=== PATIENT | female | born 1940 | race Caucasian/White ===

== ENCOUNTER 2017-10-13 22:54 | Emergency (ER) | payer OTHER ==
[~2017-10-13] VITALS: Ht 152.4 cm; Wt 72.6 kg
[~2017-10-13 22:54] MED LIST: APOA1CAP PO; ASPI81TA28 PO; CHOL20009 PO; FAMO10TA16 PO; LOSA1TAB PO; LPT20 PO; MAGN70CA PO; METO25TA3 PO; MISCCAP80; MULT-506 PO; NTRGSL/4 SL; PSYL55.43 PO; THY/30 PO; [UNRECOGNIZED DRUG - CODE] PO
[2017-10-13 22:59] VITALS: TEMP 36.7; Ht 152.4 cm; Wt 72.6 kg
[2017-10-13] MEDS ORDERED: GRAP100C PO (23:45)
[2017-10-13] MEDS ORDERED: MAGN70CA PO (23:45)
[2017-10-13] MEDS ORDERED: TRAMADOL HCL 50 MG TAB PO STA (23:47)
--- NOTE | 2017-10-14 01:24 | EMERGENCY ROOM VISIT NOTE ---
History Report prepared by Tien: Sowmya He Under the Supervision of: Dr. Rima Cotton M.D. First contact with patient: 23:01 Chief Complaint: FALL Stated Complaint: FALL, BACK PAIN History of Present Illness The patient is a 77 year old female who presents to the Emergency Room with complaints of a persistent knee weakness that began several months ago. The patient states that she normally has trouble ambulating, due to weakness in her knees. The patient's daughter states that the patient normally cannot walk up and down the stairs without help, noting she sometimes crawls on the stairs. The patient notes that she fell while walking tonight, but she did not hurt herself with the fall. She states that she has seen several doctors who suggested her knee weakness might be caused by her back. The patient notes that fixing her posture helps relieve her symptoms. The patient has an appointment on Friday to discuss possible treatments to treat her knee weakness. The patient has an appointment to see her binding cutter tomorrow, noting she has a heart murmur. She states she had a heart attack 4 years ago. Source of History: patient Onset: several months ago Position: knee (bilateral) Quality: other (knee weakness) Timing: other (persistent ) Modifying Factors (Worsening): movement (walking) Review of Systems See HPI for pertinent positives & negatives. A total of 10 systems reviewed and were otherwise negative. Past Medical & Surgical Medical Problems: (1) Anxiety disorder (2) CAD (coronary artery disease) (3) Chronic systolic heart failure (4) CKD (chronic kidney disease), stage III (5) GERD (gastroesophageal reflux disease) (6) History of - myocardial infarction (7) History of diverticulosis (8) History of GI bleed (9) Hypertension (10) Hypothyroidism (11) Ischemic cardiomyopathy Surgical Problems: (1) Deliveries by (2) H/O: hysterectomy (3) History of - hysterectomy (4) S/P angioplasty with stent (5) S/P BSO (bilateral salpingo-oophorectomy) (6) S/P tonsillectomy and adenoidectomy Family History Cancer MOTHER (Kidney CA) SISTER (Colon CA) AUNT (Colon CA) Diabetes mellitus MOTHER Heart disease MOTHER SISTER Hypertension Social History Smoking Status: Never Smoker Alcohol Use: none Drug Use: none Marital Status: Housing Status: lives alone Occupation Status: retired Current/Historical Medications Scheduled Apoaequorin (Prevagen), 10 MG PO DAILY Cholecalciferol (Vitamin D), 2,000 UNITS PO DAILY Grape Seed (Grape Seed Extract), 100 MG PO DAILY Losartan Potassium (Cozaar), 12.5 MG PO DAILY Magnesium (Magnesium Sulfate), 70-210 MG PO DAILY Metoprolol Succ (Toprol Xl) (Toprol-Xl), 12.5 MG PO HS Multivitamin (Multivitamin), 4 TABS PO DAILY [place] (Marya Europaea) ([place] Extract), 500 MG PO DAILY Probiotic Product (Probiotic), 1 CAP DAILY Thyroid ([place] Thyroid), 30 MG PO 4XWK Thyroid ([place] Thyroid), 60 MG PO 3XWK Scheduled PRN Nitroglycerin (Nitrostat), 0.4 MG SL UD PRN for Chest Pain Allergies Coded Allergies: Clopidogrel (Verified Allergy, Mild, RASH, 10/13/17) n/a Penicillins (Verified Allergy, Mild, 10/13/17) Tetracycline (Verified Allergy, Mild, 10/13/17) Lisinopril (Verified Allergy, Unknown, UNKOWN, 10/13/17) Ranitidine (Verified Adverse Reaction, Intermediate, palpatations, ) Physical Exam Vital Signs Date Time Temp Pulse Resp B/P (MAP) Pulse Ox O2 Delivery O2 Flow Rate FiO2 10/14/17 00:48 68 18 143/78 96 Room Air 10/13/17 23:07 76 10/13/17 22:59 36.7 77 20 149/72 97 Room Air Physical Exam Vital signs reviewed. General: Well-appearing female, in no significant distress. HEENT: No scleral icterus, PERRLA, neck supple. Atraumatic. Cardiovascular: Regular rate and rhythm, systolic ejection murmur, no extra sounds. Pulmonary: Clear to auscultation bilaterally, normal work of breathing. Abdomen: Soft, nontender, nondistended, positive bowel sounds. Musculoskeletal: Arthritic change to knees bilaterally. Limited range of motion of right knee to flexion. Mild tenderness along joint line, no significant appreciable effusion, no erythema, trace peripheral edema bilateral lower extremities. Atraumatic. Neurologic: Patient awake alert and oriented x 3. Skin: Warm, dry, no rash Medical Decision & Procedures ER Provider Diagnostic Interpretation: Radiology results as stated below per my review and radiologist interpretation: Knee x-ray: Narrow medial joint compartment with degenerate changes, no acute fracture or dislocation. Performed on: 10/13/2017 23:18 ED Course 2305: Past medical records reviewed. The patient was evaluated in room A10. A complete history and physical examination was performed. 2347: Ordered Tramadol HCL 50mg PO. 2355: I reevaluated the patient, who was resting comfortably. I discussed the test findings and treatment plan with her and her family. They all verbalized complete understanding and agreement. The nursing staff will contact [facility] to see if the patient can be admitted tonight. 2420: The patient was referred and will be admitted into [facility]. Medical Decision Differential diagnosis: Etiologies such as fracture, dislocation, neurovascular compromise, compartment syndrome, soft tissue injury, as well as others were entertained. This patient was evaluated and appeared to be in no significant distress. Patient denies any injury during the fall. She is not on blood thinners. Left knee x-ray was performed and reveals degenerative changes without evidence of fracture or dislocation. Patient states she is not able to ambulate up her stairs to the bathroom. She has difficulty getting into her kitchen to feed herself lately. Both of her daughter states that they have two-story house is with bathrooms on the second floor as well. Patient's states she will not be able to navigate being at home with a knee immobilizer and a walker. The patient has been referred to [facility] for further evaluation. Pt and family agree with the plan for transfer. Medication Reconcilliation Current Medication List: was personally reviewed by me Blood Pressure Screening Patient's blood pressure: Elevated blood pressure Blood pressure disposition: Elevated BP felt to be situational Impression Primary Impression: Left knee pain Additional Impressions: Fall Left knee DJD Scribe Attestation The scribe's documentation has been prepared under my direction and personally reviewed by me in its entirety. I confirm that the note above accurately reflects all work, treatment, procedures, and medical decision making performed by me. Departure Information Dispostion Rehab Inpatient Facility Referrals Rey Nation M.D. (PCP) Forms HOME CARE DOCUMENTATION FORM, IMPORTANT VISIT INFORMATION Patient Instructions My [facility] Problem Qualifiers
[2017-10-14 02:41] VITALS: BP 134/68; PULSE 78; O2SAT 96
--- NOTE | 2017-10-14 07:13 | DIAGNOSTIC IMAGING REPORT ---
L KNEE 1 OR 2 VIEWS ROUTINE CLINICAL HISTORY: 77 years-old Female presenting with L knee pain, fall. TECHNIQUE: Frontal and crosstable lateral views of the left knee were obtained. COMPARISON: None. FINDINGS: No acute fracture or malalignment. An ossicle or calcification noted projecting over the lateral joint space on frontal view, possibly the fabella. Tricompartmental degenerative changes most severe in the medial compartment, where there is significant joint space loss and subchondral sclerosis. A trace knee joint effusion may be present. Atherosclerosis. IMPRESSION: Tricompartmental degenerative changes most severe in the medial compartment with joint space loss and subchondral sclerosis. No acute osseous injury. Electronically signed by: Ian Benavides M.D. 10/14/2017 7:12 AM Dictated Date/Time: 10/14/2017 7:10 AM
== END 2017-10-14 02:46 ==
LOC: EDBD 22:54 → C.EDA 22:56
DX: M25.562 Pain in left knee (principal); W19.XXXA Unspecified fall, initial encounter; M17.12 Unilateral primary osteoarthritis, left knee; I12.9 Hypertensive chronic kidney disease with stage 1 through stage 4 chronic kidney disease, or unspecified chronic kidney disease; N18.3 Chronic kidney disease, stage 3 (moderate); I25.10 Atherosclerotic heart disease of native coronary artery without angina pectoris; E03.9 Hypothyroidism, unspecified; I50.22 Chronic systolic (congestive) heart failure; I25.2 Old myocardial infarction; K21.9 Gastro-esophageal reflux disease without esophagitis; K57.90 Diverticulosis of intestine, part unspecified, without perforation or abscess without bleeding; F41.9 Anxiety disorder, unspecified; Z87.19 Personal history of other diseases of the digestive system; Z90.710 Acquired absence of both cervix and uterus; Z98.61 Coronary angioplasty status; Z90.722 Acquired absence of ovaries, bilateral; Z98.890 Other specified postprocedural states; Z79.899 Other long term (current) drug therapy; Z88.0 Allergy status to penicillin; Z88.8 Allergy status to other drugs, medicaments and biological substances; Z80.9 Family history of malignant neoplasm, unspecified; Z83.3 Family history of diabetes mellitus; Z82.49 Family history of ischemic heart disease and other diseases of the circulatory system

== ENCOUNTER 2017-11-12 08:15 | Inpatient (IN) | payer OTHER ==
[2017-10-22 13:41] VITALS: BMI 33.0
--- NOTE | 2017-10-22 14:21 | PAT Medication Instructions ---
Service Date Oct 22, 2017. Current Home Medication List Apoaequorin (Prevagen), 5 MG PO PRN PRN for MEMORY Cholecalciferol (Vitamin D), 2,000 UNITS PO QAM Losartan Potassium (Cozaar), 12.5 MG PO QAM Metoprolol Succ (Toprol Xl) (Toprol-Xl), 12.5 MG PO HS Multivitamin (Multivitamin), 1 TAB PO QAM Nitroglycerin (Nitrostat), 0.4 MG SL UD PRN for Chest Pain Probiotic Product (Probiotic), 1 CAP QPM Thyroid ([place] Thyroid), 30 MG PO 4XWK Thyroid ([place] Thyroid), 60 MG PO 3XWK [Magnesium], 1 TAB PO QAM Medication Instructions For Your Scheduled Surgery - Continue as directed: Nitroglycerin (Nitrostat), 0.4 MG SL UD PRN for Chest Pain - Hold the following medications 2 weeks prior to surgery: Apoaequorin (Prevagen), 5 MG PO PRN PRN for MEMORY - Hold the following medications the morning of surgery: [Magnesium], 1 TAB PO QAM Cholecalciferol (Vitamin D), 2,000 UNITS PO QAM Losartan Potassium (Cozaar), 12.5 MG PO QAM Multivitamin (Multivitamin), 1 TAB PO QAM - Take the following medications the morning of surgery with a sip of water OTHERWISE NOTHING TO EAT OR DRINK AFTER MIDNIGHT: Thyroid ([place] Thyroid) - Take the following medications as scheduled the night before surgery: Metoprolol Succ (Toprol Xl) (Toprol-Xl), 12.5 MG PO HS Probiotic Product (Probiotic), 1 CAP QPM If you have any questions please call us at [phone] or [phone] or [phone]
--- NOTE | 2017-10-22 14:52 | DIAGNOSTIC IMAGING REPORT ---
CHEST 2 VIEWS ROUTINE CLINICAL HISTORY: PAT preoperative evaluation COMPARISON STUDY: 02/11/2016 FINDINGS: Small fixed lateral hernia. Lungs are clear. Diaphragms are smooth. Stable degenerative changes of the shoulders bilaterally. IMPRESSION: Small hiatal hernia. No acute process. The above report was generated using voice recognition software. It may contain grammatical, syntax or spelling errors. Electronically signed by: Estrada Ames M.D. 10/22/2017 2:51 PM Dictated Date/Time: 10/22/2017 2:51 PM
[2017-10-22 15:08] LABS: BASO % 0.6 %; BASO ABS # 0.05 K/uL (0-0.2); EOS % 2.7 %; EOS ABS # 0.22 K/uL (0-0.5); HEMOGLOBIN 13.3 g/dL (12.0-16.0); IG# 0.03 K/uL (0.00-0.02); LYMPH % 23.2 %; LYMPH ABS # 1.89 K/uL (1.2-3.4); MEAN CELL VOLUME 83.2 fL (80-100); MEAN CORPUSCULAR HEMOGLOBIN 27.7 pg (25-34); MEAN CORPUSCULAR HGB CONC 33.3 g/dl (32-36); MEAN PLATELET VOLUME 10.8 fL (7.4-10.4); MONO % 9.8 %; NEUT % 63.3 %; NEUT ABS # 5.16 K/uL (1.4-6.5); PLATELET COUNT 251 K/uL (130-400); RED CELL DISTRIBUTION WIDTH CV 14.6 % (11.5-14.5); RED CELL DISTRIBUTION WIDTH SD 44.6 fL (36.4-46.3); WHITE BLOOD COUNT 8.15 K/uL (4.8-10.8)
[2017-10-22 15:18] LABS: PTT PATIENT 27.1 SECONDS (21.0-31.0)
[2017-10-22 15:57] LABS: ALBUMIN 3.5 gm/dl (3.4-5.0); CREATININE 1.11 mg/dl (0.60-1.20); POTASSIUM 4.2 mmol/L (3.5-5.1)
--- NOTE | 2017-10-30 12:34 | HISTORY & PHYSICAL EXAMINATION ---
DATE OF ADMISSION: 11/12/2017 CHIEF COMPLAINT: Left knee pain. HISTORY OF PRESENT ILLNESS: Ms. Hall is a 77-year-old female with a 3-year history of left knee pain. The pain has gotten worse over the last 2 years. She rates her pain a 10/10. She has pain with her daily activities. She has limited standing and walking tolerance. Pain is worse with weightbearing. The patient has had injections, Tylenol and home exercise program without relief. She has failed conservative treatment and is scheduled for left knee replacement. PAST MEDICAL HISTORY: Heart disease with 3 stent placement, hypertension. She denies diabetes or DVT. PAST SURGICAL HISTORY: x3, cataract extraction, tonsillectomy, hysterectomy. SOCIAL HISTORY: The patient denies alcohol or tobacco use. She lives in a 2-story home. She lives alone and is retired. FAMILY HISTORY: Negative for DVT. MEDICATIONS: [place] thyroid, losartan, metoprolol, magnesium, vitamin D, fish oil, vitamin B complex, vitamin C, multivitamin. ALLERGIES: Unsure. REVIEW OF SYSTEMS: See HPI. Ten other systems reviewed, all negative. PHYSICAL EXAMINATION: VITAL SIGNS: Height 4 feet 11, weight 158 pounds, BMI 31. GENERAL: This is a well-developed, well-nourished female who is alert and oriented x3. Mood and affect are appropriate. HEAD, EYES, EARS, NOSE, AND THROAT: Normocephalic, atraumatic. Mucous membranes are moist and intact. NECK: Supple without lymphadenopathy. HEART: Regular rate and rhythm. She does have a grade 2 systolic murmur which is new. LUNGS: Clear to auscultation without wheezes or rhonchi. ABDOMEN: Soft and nontender. Bowel sounds are equal and active. EXTREMITIES: No ecchymosis, redness or warmth. Thigh and calf are soft and nontender. Range of motion is from 0-110. She has +1 laxity. She has no edema. She has +1 effusion. She has moderate varicosities. She is neurovascularly intact with +5/5 strength. X-RAY EXAMINATION: AP and lateral views show joint space narrowing and osteophyte formation. IMPRESSION: Degenerative joint disease, left knee. PLAN: The patient will be admitted for a left total knee arthroplasty. We will plan on aspirin for DVT prophylaxis. The patient is planning on going to inpatient facility upon discharge. She does have a new heart murmur which she is following with Mr. Chase. They are currently doing workup. Pending cardiac clearance the patient can proceed with surgery.
[2017-11-12] VITALS (8 sets, daily range): BP systolic 115–155; BP diastolic 65–91; PULSE 68–84; TEMP 36.2–36.6; O2SAT 96–100; Ht 147.3 cm; Wt 71.8 kg
[~2017-11-12] VITALS: Ht 147.3 cm; Wt 71.8 kg
[2017-11-12] MEDS: TRANEXAMIC ACID INJ 1,000 MG in SYRINGE 0 ML IV SCH ×2 (06:30→10:15)
--- NOTE | 2017-11-12 07:00 | History & Physical Bridge Note ---
H&P Re-Evaluation Bridge Note: I have examined the patient, reviewed the History & Physical and in the interval since the performance of the History & Physical I have noted the following changes of clinical significance: No changes noted
[~2017-11-12 08:15] MED LIST changes: +ACETAMINOPHEN 500 MG TAB PO SCH; -ASPI81TA28 PO; +BUPIVACAINE 0.25% 30 ML VIAL ONE; +BUPIVACAINE 0.5 % 5 MG/1 ML PF 10ML VIAL ONE; +CLINDAMYCIN 600 MG/54 ML D5W 54 ML IV SCH; +CeleBREX 200 MG CAP PO SCH; +DEXAMETHASONE 4 MG TAB PO SCH; -FAMO10TA16 PO; +FAMOTIDINE 20 MG TAB PO SCH; +GABAPENTIN 300 MG CAP PO SCH; +LACTATED RINGER'S 1000ML IV SCH; +LACTATED RINGER'S 500 ML IV SCH; -LPT20 PO; -MAGN70CA PO; +MAGNESIUM PO; +METOCLOPRAMIDE HCL 10 MG TAB PO SCH; -PSYL55.43 PO; +ROPIVACAINE 5MG/ML 30 ML 150 MG, BUPIVACAINE 0.5% MPF INJ 30 ML, EpINEphrine HCL INJ 0.... INFIL SCH; -[UNRECOGNIZED DRUG - CODE] PO
[2017-11-12] MEDS ORDERED: MIDAZOLAM HCL 1 MG/ML 2ML VIAL ONE (08:34)
[2017-11-12] MEDS ORDERED: ASPI81TA28 PO (08:57)
[2017-11-12] MEDS ORDERED: POVIDONE-IODINE OP SOLN 30 ML BTL ONE (09:25)
[2017-11-12] MEDS ORDERED: ORTHO JOINT ANESTHETIC ONE (09:25)
[2017-11-12] MEDS ORDERED: BACITRACIN 50000 UNIT VIAL ONE (09:26)
[2017-11-12] MEDS ORDERED: FENTANYL CITRATE INJ 50 MCG/1 ML 2 ML VIAL ONE ×3 (10:52→11:26)
[2017-11-12] MEDS ORDERED: ATROPINE SULFATE 0.1 MG/ML 5ML SYR IV PRN (11:15)
[2017-11-12] MEDS ORDERED: ONDANSETRON INJ 2 MG/ML 2 ML VIAL ONE (11:15)
[2017-11-12] MEDS ORDERED: FLUMAZENIL 0.1 MG/1 ML 10 ML VIAL IV PRN (11:15)
[2017-11-12] MEDS ORDERED: PHENYLEPHRINE 100MCG/ML 5ML SYR ONE (11:15)
[2017-11-12] MEDS ORDERED: EpHEDrine SULFATE INJ 50 MG/ML AMP IV PRN (11:15)
[2017-11-12] MEDS ORDERED: EpHEDrine SULFATE 50MG/5ML SYR ONE (11:15)
[2017-11-12] MEDS ORDERED: PROPOFOL IV EMULSION 10 MG/ML 20 ML VIAL IV ONE (11:15)
[2017-11-12] MEDS ORDERED: LABETALOL HCL IV 5 MG/ML 20ML IV PRN (11:15)
[2017-11-12] MEDS ORDERED: LIDOCAINE HCL 2% 2 ML VIAL (20MG/ML) ONE (11:15)
[2017-11-12] MEDS ORDERED: DEXAMETHASONE SOD INJ 4 MG/ML VIAL ONE (11:15)
[2017-11-12] MEDS ORDERED: ONDANSETRON INJ 2 MG/ML 2 ML VIAL IV PRN ×2 (11:15→13:00)
[2017-11-12] MEDS ORDERED: NALOXONE HCL 0.4 MG/1 ML VIAL/CARP IV PRN (11:15)
--- NOTE | 2017-11-12 12:02 | [facility] Operative Report ---
Operative Report Operative Date Nov 12, 2017. Pre-Operative Diagnosis Left Knee Degenerative Joint Disease Post-Operative Diagnosis Left Knee Degenerative Joint Disease Procedure(s) Performed Left Total Knee Arthroplasty utilizing [employer] journey to non-block total knee arthroplasty size 4 femur to tibia Poly-[address] Orellana Natural [employer] Technician Surgeon(s) Estrada Mcneal PA-C Estimated Blood Loss 5 mL Findings Patient presents with severe end-stage tricompartmental degenerative joint disease left knee nonresponsive wants to conservative therapy presents for left total knee arthroplasty. X-rays patient had evidence of subchondral cystic changes sclerosus marginal osteophytes patient unresponsive to injections anti- inflammatories corticosteroids viscous supplementations relative rest activity modification Specimens A: Left knee bone and tissue Complication(s) None Disposition Recovery Room / PACU Indications Patient presents with severe end-stage Tri-Chlor metal degenerative joint disease Nourse wants to conservative therapy including injections anti- inflammatories relative rest activity modification presents for total knee arthroplasty Description of Procedure After proper prepping and draping of the left lower extremity anterior midline incision was made over the region of the extensor extensor mechanism after meticulous hemostasis was obtained and maintained in subcutaneous tissues a medial parapatellar incision was made The patella was subluxed lateralward the medial lateral gutter were cleaned from any hypertrophic synovitis and scar tissue of the distal femoral block was placed and the distal femoral osteotomy cut was made subsequently the chamfers anterior and posterior osteotomy cuts were made utilizing the 4-in-1 block the tibia was subsequently subluxed anteriorward medial and ateral meniscal remnants were excised in their entirety remnants of the anterior and posterior cruciate ligaments were excised in their entirety excellent exposure of the proximal tibia was obtained the tibial osteotomy guide was placed on the proximal tibial osteotomy cut was made once again the knee was irrigated with copious amounts of sterile saline solution the patella was subsequently everted lateralward thickened scar tissue around the patella was removed the patella was subsequently cut utilizing a freehand technique and was drilled prepared for final preparation and placement of patella socially flexion-extension gaps were checked and the equal and symmetric trials were placed to the appropriate femoral and tibial trials with poly-spacer being placed for equal flexion and extension gaps and full range of motion including extension to 0 and flexion to 140 the trial components after having been taken to recovery range of motion was subsequently removed meticulous hemostasis was obtained and maintained subsequently a knee block injection of joint cocktail including ropivacaine 0.5% 150 mg. Bupivacaine 0.5 % epinephrine 1-200,030 mL's toradol 30 mg dexamethasone 4 mg ketamine 10 mg clonidine 100 micrograms normal saline solution 30 mg was infiltrated into the soft tissues of the posterior knee medial lateral gutters and periosteal synovium special attention was paid to protect neurovascular structures at all times subsequently trial components having been removed the knee was irrigated with sterile saline solution. debris was removed the proximal tibia was subsequently prepared and was made ready for the placement of the tibial component tibial component was also cemented and tamped into position the femoral component was subsequently placed and cemented in the position the patellar component was subsequently cemented in position because hemostasis once again obtained and maintained wound having been thoroughly irrigated with debridement and debridement lavage was performed as well as a medial parapatellar incision closed with #1 Vicryl in interrupted fashion subcutaneous was closed with #2 Vicryl skin was closed with skin clips. PA-C was necessary for prepping and drapping as well as wound closure of deep fascia Sub cutaneous tissue and skin and was necessary for the case. A sterile compressive dressing was placed patient was taken to recovery in stable condition of report dictated by Esteban I attest to the content of the Intraoperative Record and any orders documented therein. Any exceptions are noted below. I attest to the content of the Intraoperative Record and any orders documented therein. Any exceptions are noted below.
[2017-11-12] MEDS ORDERED: ALUMINUM/MAGNESIUM/SIMETH (MAALOX MAX) 30 ML UDC PO PRN (13:00)
[2017-11-12] MEDS ORDERED: BISACODYL 10 MG SUPP PR PRN (13:00)
[2017-11-12] MEDS ORDERED: SOD PHOSPHATE/SOD BIPHOSPHATE ENEMA 132 ML BTL PR PRN (13:00)
[2017-11-12] MEDS ORDERED: NITROGLYCERIN 0.4 MG SL PER TAB CHARGE SL PRN (13:00)
[2017-11-12] MEDS ORDERED: MAGNESIUM HYDROXIDE SUSP 30 ML UDC PO PRN (13:00)
[2017-11-12] MEDS ORDERED: HYDROmorphone INJ 1 MG/ML SYR ONE (13:02)
--- NOTE | 2017-11-12 13:24 | DIAGNOSTIC IMAGING REPORT ---
LEFT KNEE 2 VIEWS CLINICAL HISTORY: Postop knee arthroplasty COMPARISON: 10/13/2017 DISCUSSION: There are postsurgical changes of a total left knee arthroplasty and patellar resurfacing. Overlying surgical drains are evident. The femoral tibial components appear well seated. Air within the soft tissues is felt to be postsurgical IMPRESSION: Postsurgical changes of a total left knee arthroplasty. Electronically signed by: Emiliano Winters M.D. 11/12/2017 1:22 PM Dictated Date/Time: 11/12/2017 1:21 PM
--- NOTE | 2017-11-12 13:41 | Anesthesiology Progress Note ---
Anesthesia Post Op Note Date & Time Nov 12, 2017 at 13:41 Vital Signs Pain Intensity: 2 Vital Signs Past 12 Hours Date Time Temp Pulse Resp B/P (MAP) Pulse Ox O2 Delivery O2 Flow Rate FiO2 11/12/17 13:35 36.2 84 12 133/69 99 Nasal Cannula 2 11/12/17 13:25 85 16 132/67 97 Nasal Cannula 2 11/12/17 13:15 87 21 137/70 97 Nasal Cannula 2 11/12/17 13:05 89 19 140/70 100 Oxymask 10 11/12/17 12:55 87 20 136/68 98 Oxymask 10 11/12/17 12:48 36.0 97 10 135/69 97 Oxymask 10 11/12/17 08:40 36.5 75 20 155/91 97 Room Air Notes Mental Status: alert / awake / arousable, participated in evaluation Pt Amnestic to Procedure: Yes Nausea / Vomiting: adequately controlled Pain: adequately controlled Airway Patency, RR, SpO2: stable & adequate BP & HR: stable & adequate Hydration State: stable & adequate Anesthetic Complications: no major complications apparent
[2017-11-12] MEDS ORDERED: HYDROmorphone INJ 2 MG/ML SYR/VIAL IV PRN (13:45)
[2017-11-12] MEDS ORDERED: D5W AND 1/2NSS + 20MEQ KCL 1,000 ML IV SCH (15:00)
--- NOTE | 2017-11-12 16:05 | CARDIOLOGY CONSULTATION ---
DATE OF CONSULTATION: 11/12/2017 REFERRING PHYSICIAN: Dr. Orellana. INDICATIONS: Postoperative management of cardiac and hypertensive issues. HISTORY OF PRESENT ILLNESS: The patient is a 77-year-old female whose past medical history is notable for known ischemic heart disease, having undergone prior coronary interventions receiving a drug-eluting stent to the left anterior descending artery in 2012 and to the right coronary artery in 2014 with associated mild ischemic cardiomyopathy, EF 45-50%, calcific aortic valve disease with moderate aortic stenosis, hypertension, and hyperlipidemia. The patient has had stable class 1 functional capacity, per her history with no difficulties with ambulation, angina or congestive heart failure. Notes no tachypalpitations, syncope or near syncope. Notes no unexplained fevers, chills or infections. Notes no bleeding difficulties, melena, or hematochezia, had not been taking aspirin but has recently resumed it. Stress testing performed preoperatively with a dobutamine stress echocardiography on 10/31/2017 demonstrated fixed wall motion abnormality without new wall motion abnormality induced, ejection fraction 45% and moderately severe aortic stenosis. The patient is referred now postoperatively. She tolerated the procedure well today without hemodynamic instability, currently is without pain is eating lunch. Notes no chest pain or discomfort. Notes no fevers, chills or sweats. Notes no tachypalpitations and did take usual medications preoperatively. ALLERGIES: MULTIPLE AND INCLUDE LIST OF CLOPIDOGREL, LISINOPRIL, PENICILLINS, RANITIDINE, AND TETRACYCLINE. MEDICATIONS: Preoperatively were Privigen 5 mg p.r.n., aspirin 81 mg per day, cholecalciferol 2000 units q.a.m., Cozaar 12.5 mg q.a.m., metoprolol succinate 12.5 mg at bedtime, multivitamin per day, nitroglycerin p.r.n., probiotic, [place] Thyroid 30 mg 4 days per week, 60 mg 3 days per week, magnesium supplement 1 tablet per day. PAST SURGICAL HISTORY: Notable for prior tonsillectomy, hysterectomy, cataract extractions and C-sections; no prior orthopedic surgeries of significance per patient. FAMILY HISTORY: Notable for heart disease. SOCIAL HISTORY: The patient is a nonsmoker, nondrinker. She lives in [place]. PRIMARY CARE PHYSICIAN: Dr. Nation. PHYSICAL EXAMINATION: VITAL SIGNS: Heart rate is 81, blood pressure is 126/69, O2 saturations 99% on 2 liters nasal cannula. HEENT: Normocephalic, atraumatic. Nares without discharge. Throat was clear. The patient has a slight lid lag on the left at baseline. NECK: Thin. There is no jugular venous distention. There is no carotid bruits. Carotid pulses are 2/4 without delay. LUNGS: Clear to auscultation. CARDIOVASCULAR: Regular with a grade 2/6 systolic murmur. There is no diastolic murmur. ABDOMEN: Soft, nontender. There is no palpable hepatosplenomegaly. There is no hepatojugular reflux. EXTREMITIES: Without cyanosis or clubbing. There is no peripheral edema on the right. There are intact distal pulses. Left knee is bandaged. LABORATORY DATA: No lab work for today. IMPRESSION: A 77-year-old female with underlying history of stable ischemic heart disease with generally stable class 1-2 function capacity without recent angina, myocardial infarction or congestive heart failure, history of moderately severe aortic stenosis, though clinically compensated. The patient tolerated operative procedure today. Review of past medical history also includes history of peptic ulcer disease, diaphragmatic hernia, chronic renal insufficiency, and possible past history of transient expressive aphasia. RECOMMENDATIONS: Continue usual medications perioperatively, the patient has resumed aspirin prior to hospitalization and will continue. Will follow patient in the hospital. Encouraged patient to contact nursing staff immediately if any new symptoms or complaints, anticipate follow up through patient's initial physical therapies.
[2017-11-12] MEDS: OXYCODONE HCL IR 5 MG TAB (IMMEDIATE RELEASE) PO PRN (17:37)
[2017-11-12] MEDS: CLINDAMYCIN IV 600 MG in DEXTROSE 5% 50ML 50 ML IV SCH (18:23)
[2017-11-12] MEDS: SENNA 8.6 MG TAB PO SCH (21:00)
[2017-11-12] MEDS: METOPROLOL SUCC 25MG EXT REL TAB PO SCH (21:28)
[2017-11-12] MEDS: ASPIRIN 81 MG ECTAB PO SCH (21:29)
[2017-11-12] MEDS: DOCUSATE SODIUM 100 MG CAP PO SCH (21:29)
[2017-11-12] MEDS: LACTOBACILLUS ACIDOPHILUS (FLORANEX) TAB PO SCH (21:29)
[2017-11-12] MEDS: ACETAMINOPHEN 500 MG TAB PO SCH (21:30)
[2017-11-12] MEDS ORDERED: NURSING VERBAL MED ORDER ONE (23:45)
[2017-11-13] MEDS: CLINDAMYCIN IV 600 MG in DEXTROSE 5% 50ML 50 ML IV SCH (02:29)
[2017-11-13 04:00] VITALS: BP 123/65; PULSE 68; TEMP 36.7; O2SAT 97
[2017-11-13] MEDS: OXYCODONE HCL IR 5 MG TAB (IMMEDIATE RELEASE) PO PRN ×3 (04:37→22:20)
[2017-11-13] MEDS: ACETAMINOPHEN 500 MG TAB PO SCH ×3 (06:14→21:20)
[2017-11-13 06:41] LABS: HEMATOCRIT 34.9 % (37-47); HEMOGLOBIN 11.7 g/dL (12.0-16.0); MEAN CELL VOLUME 82.1 fL (80-100); MEAN CORPUSCULAR HEMOGLOBIN 27.5 pg (25-34); MEAN CORPUSCULAR HGB CONC 33.5 g/dl (32-36); MEAN PLATELET VOLUME 11.3 fL (7.4-10.4); PLATELET COUNT 188 K/uL (130-400); RED CELL DISTRIBUTION WIDTH CV 14.3 % (11.5-14.5); RED CELL DISTRIBUTION WIDTH SD 43.1 fL (36.4-46.3); WHITE BLOOD COUNT 17.53 K/uL (4.8-10.8)
[2017-11-13 07:14] LABS: CALCIUM 8.4 mg/dl (8.5-10.1); CREATININE 1.1 mg/dl (0.60-1.20); POTASSIUM 4.4 mmol/L (3.5-5.1)
--- NOTE | 2017-11-13 07:49 | Orthopedic Progress Note ---
Orthopedic Progress Note Date of Service Nov 13, 2017. Subjective Post OP Day: 1 Reports: feeling well, Denies: complaints Objective calves soft nontender, N/V intact, dressing C/D/I, A&O x3, toes mobile, hemovac drainage (125ml latest shift) Date Time Temp Pulse Resp B/P (MAP) Pulse Ox O2 Delivery O2 Flow Rate FiO2 11/13/17 04:00 36.7 68 16 123/65 (84) 97 Room Air 11/12/17 23:30 36.2 68 16 116/70 (85) 99 Room Air 11/12/17 23:30 Room Air 11/12/17 22:33 36.4 78 16 121/71 (88) 96 Room Air 11/12/17 19:15 Room Air 11/12/17 18:48 Room Air 11/12/17 16:12 83 16 115/65 (82) 100 2.0 11/12/17 15:00 78 16 119/71 (87) 99 2.0 11/12/17 14:31 81 16 126/69 (88) 99 2.0 11/12/17 14:19 98 Nasal Cannula 2.0 11/12/17 14:14 98 Nasal Cannula 2.0 11/12/17 14:00 36.6 84 18 126/69 (88) 98 Nasal Cannula 2.0 11/12/17 13:45 83 18 133/65 97 Nasal Cannula 2 11/12/17 13:35 36.2 84 12 133/69 99 Nasal Cannula 2 11/12/17 13:25 85 16 132/67 97 Nasal Cannula 2 11/12/17 13:15 87 21 137/70 97 Nasal Cannula 2 11/12/17 13:05 89 19 140/70 100 Oxymask 10 11/12/17 12:55 87 20 136/68 98 Oxymask 10 11/12/17 12:48 36.0 97 10 135/69 97 Oxymask 10 11/12/17 08:40 36.5 75 20 155/91 97 Room Air Laboratory Results 24 Hours: Test 11/13/17 06:24 Hematocrit 34.9 % Hemoglobin 11.7 g/dL Prothromb Time International Ratio 1.0 Prothrombin Time 11.0 SECONDS Assessment & Plan Assessment: POD 1 s/p Left TKA history of stable ischemic heart disease with generally stable class 1-2 function capacity without recent angina, myocardial infarction or congestive heart failure, history of moderately severe aortic stenosis, though clinically compensated Plan: PT/OT Planning for PT upon DC Appreciate Cardiology consult Inhouse Planning Pain Management: Morphine, PO Tylenol, Oxy IR DVT Prophylaxis: TEDs, SCDs, ASA Discharge Planning Discharge Planning: home with home health
--- NOTE | 2017-11-13 07:53 | Discharge Instructions ---
Discharge Instructions Date of Service Nov 13, 2017. Admission Reason for Admission: Left Knee Osteoarthritis Discharge Discharge Diagnosis / Problem: Left Knee Djd Discharge Goals Goal(s): Decrease discomfort, Improve function, Improve disease control Activity Recommendations Activity Limitations: per Instructions/Follow-up section Weightbearing Status: Left weightbearing (as tolerated) . Instructions / Follow-Up Instructions / Follow-Up ACTIVITY RECOMMENDATIONS: SELF CARE INSTRUCTIONS AFTER TOTAL KNEE REPLACEMENT A. You may need to continue a physical therapy program after discharge from the hospital. There are several options available to you. Your doctor will assist you in selecting the best one for you. 1. An out-patient facility 2 to 3 times a week for therapy or home therapy. 2. Continue working on all exercises taught to you in the hospital. Your goals should be to increase bending of your knee to 90 degrees and beyond and to fully straighten your knee. B. You may progress at your own pace from walking with a walker or crutches to a cane; then to no assistive devices. C. Make walking a part of your daily routine. Be up as much as comfortable with rest periods throughout the day. Rest with leg elevation is very important. Use the ice wrap frequently for the first 3-4 weeks. D. There are no restrictions on activities. You may ride in a car, shop, participate in flight service specialist and all social activities. E. Wear the long elastic stockings (TAURUS hose) 20 hours a day for 2 weeks after surgery. They can be removed several times a day for laundering and for a bath. F. You may shower, no tub baths until cleared by your doctor. SPECIAL CARE INSTRUCTIONS: VERY IMPORTANT TO READ AND REVIEW A. There are a few signs you need to watch for after you are home. Call [facility] if you notice any of the followin. Increased severe knee pain. Some pain is expected especially when you exercise. 2. Increased swelling in your leg or knee; pain or swelling of the calf muscle in either lower leg. 3. Any fluid drainage from the incision. 4. Shortness of breath or chest pain. B. Please call [facility] at if you have any concerns or questions about your operation or recovery. The doctor or his nurse will return your call promptly. C. You must take antibiotics before dental work, bladder, bowel or other surgery. Your doctor will provide you with a permanent care to carry describing this precaution. IMPORTANT: * REMEMBER TO TAKE ASPIRIN, 81 MG, TWICE DAILY FOR 4 WEEKS UNLESS OTHERWISE DIRECTED. THIS IS YOUR BLOOD THINNER. * HIGH RISK PATIENTS MAY BE PRESCRIBED A STRONGER BLOOD THINNER. THIS WILL BE PROVIDED AT DISCHARGE. * CALL IF INCREASED PAIN, REDNESS, DRAINAGE OR FEVER GREATER THAT 101. * WEAR TAURUS HOSE 20 HOURS PER DAY FOR 2 WEEKS. * DERMABOND Prineo- This is a mesh tape dressing that is covered with glue. It should remain in place until the incision is properly healed, usually 10-14 days. This dressing is designed to naturally slough off. You may trim the excess mesh tape as it peels off. Incision may be briefly wet in a shower. Dry immediately by blotting with a clean, dry towel. Do not bath or swim until instructed by your doctor. Do not scratch, rub, or pick at the dressing. Do not apply any topical ointments or lotions until dressing is completely removed and/or instructed by your doctor. There may be a small piece of suture material at one end of your incision. Do not pull or trim this. If it is bothersome or catching on clothing, you may cover it with a band-aid. . FOLLOW UP VISIT: If appointment is not already scheduled: Please call [facility] to make a follow-up appointment for 2 weeks after your surgery at . Current Hospital Diet Patient's current hospital diet: AHA Diet (Heart Healthy) Discharge Diet Recommended Diet: AHA Diet (Heart Healthy) Procedures Procedures Performed: Left Total Knee Arthroplasty utilizing Renee [employer] Nephew journey to non-block total knee arthroplasty size 4 femur to tibia Poly-29 oval patella Pending Studies Studies pending at discharge: no Laboratory Results Hemoglobin A1c Test 10/22/17 14:30 Range/Units Estimated Average Glucose 126 mg/dl Hemoglobin A1c 6.0 H 4.5-5.6 % Medical Emergencies . Who to Call and When: Medical Emergencies: If at any time you feel your situation is an emergency, please call 911 immediately. . Non-Emergent Contact Non-Emergency issues call your: Surgeon Call Non-Emergent contact if: temperature is above 101.5, your pain is not controlled, your pain is worsening, wound has increased drainage, wound has increased redness . "Provider Documentation" section prepared by Alberto Fontenot. . VTE Core Measure Inpt VTE Proph given/why not?: Other Anticoagulation, T.E.DIván Stockings, SCD's [place] Drug Monitoring Program Search Results: patient reviewed within database, no issues identified
--- NOTE | 2017-11-13 08:00 | Clinical Documentation Query ---
QUERY 1 OF [address] REZA, In your clinical opinion is this patient being managed for: ( ) Chronic combined systolic and diastolic CHF ( ) Not Agree ( ) Other explanation of clinical findings (Please Explain) ( ) Unable to determine (Please Define) ( ) Need to Discuss The medical record reflects the following clinical findings, treatment, and risk factors. Clinical Indicators: 77 yo female presenting with DJD L Knee for L TKA. Noted list of medical problems in Patient summary includes notation of hx of CHF. Review of ECHO dated 11/2015 showed EF of 45-50% with grade II diastolic dysfunction. Treatment: chronic cozaar and metoprolol Risk Factors: age, chronic ischemic heart disease, [place], HTN, CKD QUERY 2 OF 2 In your clinical opinion is this patient being managed for: ( ) Chronic kidney disease, stage 3 ( ) Not Agree ( ) Other explanation of clinical findings (Please Explain) ( ) Unable to determine (Please Define) ( ) Need to Discuss The medical record reflects the following clinical findings, treatment, and risk factors. Clinical Indicators: Cardiology consult indicates pt with chronic renal insufficiency. Review of GFR showed range of 33-56 over the past 5 years Treatment: monitor PRP's, treat comorbid conditions Risk Factors: age, HTN, OK, chronic ischemic heart disease The stages of CKD according to the [employer] are as follows: Stage I: GFR >90 Stage II: GFR 60-89 Stage III: GFR 30-59 Stage IV: GFR 15-29 Stage V: GFR <15 Please clarify and document your clinical opinion in the progress notes and discharge summary. Terms such as "probable", "suspected", "likely", "questionable", "possible", or "still to be ruled out" are acceptable. IF IN AGREEMENT, YOU MUST DOCUMENT ABOVE DIAGNOSTIC STATEMENT IN DAILY PROGRESS NOTES AND DISCHARGE SUMMARY. This document is not part of the patient's record. Thank You, Maureen Ba, RN [phone]
[2017-11-13 08:03] VITALS: BP 121/63; PULSE 61; TEMP 36.5; O2SAT 99
[2017-11-13] MEDS: PANTOprazole SOD 40 MG TAB PO SCH (08:06)
[2017-11-13] MEDS: ASPIRIN 81 MG ECTAB PO SCH ×2 (08:06→21:18)
[2017-11-13] MEDS: MULTIVITAMIN TAB PO SCH (08:06)
[2017-11-13] MEDS: DOCUSATE SODIUM 100 MG CAP PO SCH ×2 (08:06→21:19)
[2017-11-13] MEDS: CHOLECALCIFEROL 1000 INTER.UNIT TAB PO SCH (08:07)
[2017-11-13] MEDS: LOSARTAN POTASSIUM 25 MG TAB PO SCH (08:07)
[2017-11-13] MEDS ORDERED: MAGNESIUM PO SCH (09:00)
[2017-11-13 09:05] VITALS: BP 156/69
--- NOTE | 2017-11-13 10:38 | Cardiology Follow-Up ---
Subjective General Date of Service: Nov 13, 2017. Chief Complaint: Post op LTKA Pt evaluation today including: conversation w/ patient, physical exam, chart review, lab review, review of studies, review of inpatient medication list History of Present Illness Patient feeling well today, POD 1 LTA. Ambulating in hallways without exertional chest pain or SOB. No cough, SOB at rest, orthopnea, edema. Mild left knee pain but manageable. She offers no acute complaints today. Allergies Coded Allergies: Clopidogrel (Verified Allergy, Mild, RASH, 11/12/17) n/a Penicillins (Verified Allergy, Mild, RASH, 11/12/17) Tetracycline (Verified Allergy, Mild, UNKNOWN, 11/12/17) Ranitidine (Verified Adverse Reaction, Intermediate, PALPITATIONS, 11/12/17 ) Lisinopril (Verified Adverse Reaction, Unknown, DRY COUGH, 11/12/17) Social History Smoking Status: Never Smoker Hx Tobacco Use In Past Year?: No Hx Alcohol Use - Type And Amou: No Hx Substance Use - Type And Am: No Problem List Medical Problems: (1) Aphasia Status: Acute (2) Fall Status: Acute (3) Flu-like symptoms Status: Acute (4) Left knee DJD Status: Acute (5) Left knee pain Status: Acute Review of Systems Respiratory: No cough, No sputum, No wheezing, No shortness of breath, No dyspnea at rest, No hemoptysis Cardiac: No chest pain, No orthopnea, No PND, No edema, No palpitations Physical Exam Vital Signs Last Vital Signs Documentation Date Time Temp Pulse Resp B/P (MAP) Pulse Ox O2 Delivery O2 Flow Rate FiO2 11/13/17 08:03 36.5 61 16 121/63 (82) 99 Room Air 11/12/17 16:12 2.0 Physical Exam Constitutional: General Apperance: heathly-appearing Level of Distress: NAD Psychiatric: Mental Status: active & alert Orientation: to time, to place, to person Head: normocephalic, atraumatic Eyes: Pupils: PERRLA Neck: supple Lungs: Respiratory effort: good air movement Auscultation: pertinent finding (faint bibasilar crackles) Cardiovascular: Heart Auscultation: RRR, II/ CONSUELO Abdomen: Bowel Sounds: normal Inspection & Palpation: soft, non-distended Extremities: no edema, pertinent finding (SCD's in place) Assessment and Plan Assessment and Plan 77-year-old female 1. POD 1 LTKA - doing well. Minimal pain. 2. History of moderate to severe - no symptoms of acute decompensation 3. Ischemic heart disease, LVEF 45% - no recent anginal symptoms. Negative dobutamine stress echo 10/2017. 4. Hypertension- controlled RECOMMENDATIONS: Continue home cardiac medications. ASA resumed. Monitor fluid status given underlying valve disease and cardiomyopathy. No CHF symptoms currently DVT proph with SCD's and ambulation Case discussed with Dr. Maciel. Will follow. No complaints other than knee discomfort Plan as above Tai Maciel MD Laboratory Results Last 24 Hours Test 11/13/17 06:24 White Blood Count 17.53 K/uL Red Blood Count 4.25 M/uL Hemoglobin 11.7 g/dL Hematocrit 34.9 % Mean Corpuscular Volume 82.1 fL Mean Corpuscular Hemoglobin 27.5 pg Mean Corpuscular Hemoglobin Concent 33.5 g/dl RDW Standard Deviation 43.1 fL RDW Coefficient of Variation 14.3 % Platelet Count 188 K/uL Mean Platelet Volume 11.3 fL Prothrombin Time 11.0 SECONDS Prothromb Time International Ratio 1.0 Sodium Level 132 mmol/L Potassium Level 4.4 mmol/L Chloride Level 103 mmol/L Carbon Dioxide Level 23 mmol/L Anion Gap 6.0 mmol/L Blood Urea Nitrogen 18 mg/dl Creatinine 1.10 mg/dl Est Creatinine Clear Calc Drug Dose 34.9 ml/min Estimated GFR () 55.3 Estimated GFR (Non- 47.7 BUN/Creatinine Ratio 16.6 Random Glucose 118 mg/dl Calcium Level 8.4 mg/dl
--- NOTE | 2017-11-13 10:55 | Anesthesiology Progress Note ---
Anesthesia Post Op Note Date & Time Nov 13, 2017 at 10:54 Vital Signs Vital Signs Past 12 Hours Date Time Temp Pulse Resp B/P (MAP) Pulse Ox O2 Delivery O2 Flow Rate FiO2 11/13/17 08:03 36.5 61 16 121/63 (82) 99 Room Air 11/13/17 08:00 Room Air 11/13/17 04:00 36.7 68 16 123/65 (84) 97 Room Air 11/12/17 23:30 36.2 68 16 116/70 (85) 99 Room Air 11/12/17 23:30 Room Air Notes Mental Status: alert / awake / arousable, participated in evaluation Pt Amnestic to Procedure: Yes Nausea / Vomiting: adequately controlled Pain: adequately controlled Airway Patency, RR, SpO2: stable & adequate BP & HR: stable & adequate Hydration State: stable & adequate Anesthetic Complications: no major complications apparent
[2017-11-13] MEDS: MoRPHine SULFATE 2 MG/ML CARP IV PRN (14:04)
[2017-11-13 15:27] VITALS: BP 138/66; PULSE 82; TEMP 36.8; O2SAT 98
[2017-11-13] MEDS ORDERED: NURSING DECISION MEDICATION ORDER SCH (16:30)
[2017-11-13] MEDS ORDERED: COUGH DROP (SUGAR FREE) LOZ 24 LOZ/1 BOX LOZ PRN (17:00)
[2017-11-13] MEDS: SENNA 8.6 MG TAB PO SCH (21:19)
[2017-11-13] MEDS: METOPROLOL SUCC 25MG EXT REL TAB PO SCH (21:19)
[2017-11-13] MEDS: LACTOBACILLUS ACIDOPHILUS (FLORANEX) TAB PO SCH (21:19)
[2017-11-13 23:30] VITALS: BP 111/63; PULSE 65; TEMP 36.5; O2SAT 96
[2017-11-14] MEDS: OXYCODONE HCL IR 5 MG TAB (IMMEDIATE RELEASE) PO PRN ×3 (02:56→23:35)
[2017-11-14] MEDS: MoRPHine SULFATE 2 MG/ML CARP IV PRN (05:12)
[2017-11-14] MEDS: ACETAMINOPHEN 500 MG TAB PO SCH ×3 (05:36→21:47)
[2017-11-14 07:56] VITALS: BP 117/65; PULSE 58; TEMP 36.6; O2SAT 97
--- NOTE | 2017-11-14 08:29 | Orthopedic Progress Note ---
Orthopedic Progress Note Date of Service Nov 14, 2017. Subjective Post OP Day: 2 Reports: feeling well, Denies: chest pain, SOB, nausea / vomiting, light headedness, calf pain Objective calves soft nontender, N/V intact, dressing C/D/I, A&O x3, toes mobile Date Time Temp Pulse Resp B/P (MAP) Pulse Ox O2 Delivery O2 Flow Rate FiO2 11/14/17 07:56 36.6 58 16 117/65 (82) 97 Room Air 11/14/17 07:55 Room Air 11/13/17 23:30 36.5 65 16 111/63 (79) 96 Room Air 11/13/17 15:50 Room Air 11/13/17 15:27 36.8 82 18 138/66 (90) 98 Room Air Assessment & Plan Assessment: POD 2 s/p Left TKA history of stable ischemic heart disease with generally stable class 1-2 function capacity without recent angina, myocardial infarction or congestive heart failure, history of moderately severe aortic stenosis, though clinically compensated Plan: PT/OT DC PLANNING- REFERRAL PLACED TO [facility]. AWAIT ACCEPTANCE. REQUIRES 3 DAY STAY. PAIN MANAGEMENT- OXYCODONE, TYLENOL DVT PROPH- ASA 81MG BID Appreciate Cardiology consult Inhouse Planning Pain Management: Morphine, PO Tylenol, Oxy IR DVT Prophylaxis: TEDs, SCDs, ASA
--- NOTE | 2017-11-14 08:31 | Discharge Instructions ---
Discharge Instructions Date of Service Nov 14, 2017. Admission Reason for Admission: Left Knee Osteoarthritis Discharge Discharge Diagnosis / Problem: SP LEFT TKA Discharge Goals Goal(s): Decrease discomfort, Improve function, Increase independence Activity Recommendations Activity Level: Assistance Required Therapies: Physical Therapy, Weight Bearing Status (WBAT WITH WALKER), Occupational Therapy . Additional Information Patient informed of condition: Yes Advance Directives: Yes DNR: No Level of Care: Acute Rehab Communicable Disease: No Prognosis: Stable Instructions / Follow-Up Instructions / Follow-Up ACTIVITY RECOMMENDATIONS: SELF CARE INSTRUCTIONS AFTER TOTAL KNEE REPLACEMENT A. You may need to continue a physical therapy program after discharge from the hospital. There are several options available to you. Your doctor will assist you in selecting the best one for you. 1. An out-patient facility 2 to 3 times a week for therapy or home therapy. 2. Continue working on all exercises taught to you in the hospital. Your goals should be to increase bending of your knee to 90 degrees and beyond and to fully straighten your knee. B. You may progress at your own pace from walking with a walker or crutches to a cane; then to no assistive devices. C. Make walking a part of your daily routine. Be up as much as comfortable with rest periods throughout the day. Rest with leg elevation is very important. Use the ice wrap frequently for the first 3-4 weeks. D. There are no restrictions on activities. You may ride in a car, shop, participate in drawing in machine tender and all social activities. E. Wear the long elastic stockings (TAURUS hose) 20 hours a day for 2 weeks after surgery. They can be removed several times a day for laundering and for a bath. F. You may shower, no tub baths until cleared by your doctor. SPECIAL CARE INSTRUCTIONS: VERY IMPORTANT TO READ AND REVIEW A. There are a few signs you need to watch for after you are home. Call [facility] if you notice any of the followin. Increased severe knee pain. Some pain is expected especially when you exercise. 2. Increased swelling in your leg or knee; pain or swelling of the calf muscle in either lower leg. 3. Any fluid drainage from the incision. 4. Shortness of breath or chest pain. B. Please call [facility] at if you have any concerns or questions about your operation or recovery. The doctor or his nurse will return your call promptly. C. You must take antibiotics before dental work, bladder, bowel or other surgery. Your doctor will provide you with a permanent care to carry describing this precaution. IMPORTANT: * REMEMBER TO TAKE ASPIRIN, 81 MG, TWICE DAILY FOR 4 WEEKS UNLESS OTHERWISE DIRECTED. THIS IS YOUR BLOOD THINNER. * HIGH RISK PATIENTS MAY BE PRESCRIBED A STRONGER BLOOD THINNER. THIS WILL BE PROVIDED AT DISCHARGE. * CALL IF INCREASED PAIN, REDNESS, DRAINAGE OR FEVER GREATER THAT 101. * WEAR TAURUS HOSE 20 HOURS PER DAY FOR 2 WEEKS. DERMABOND Prineo- This is a mesh tape dressing that is covered with glue. It should remain in place until the incision is properly healed, usually 10-14 days. This dressing is designed to naturally slough off. You may trim the excess mesh tape as it peels off. Incision may be briefly wet in a shower. Dry immediately by blotting with a clean, dry towel. Do not bath or swim until instructed by your doctor. Do not scratch, rub, or pick at the dressing. Do not apply any topical ointments or lotions until dressing is completely removed and/or instructed by your doctor. There may be a small piece of suture material at one end of your incision. Do not pull or trim this. If it is bothersome or catching on clothing, you may cover it with a band-aid. FOLLOW UP VISIT: If appointment is not already scheduled: Please call [facility] to make a follow-up appointment for 2 weeks after your surgery at . Current Hospital Diet Patient's current hospital diet: AHA Diet (Heart Healthy) Discharge Diet Recommended Diet: Regular Diet Procedures Procedures Performed: Left Total Knee Arthroplasty utilizing Renee & Nephew journey to non-block total knee arthroplasty size 4 femur to tibia Poly-29 oval patella Pending Studies Studies pending at discharge: no Laboratory Results Hemoglobin A1c Test 10/22/17 14:30 Range/Units Estimated Average Glucose 126 mg/dl Hemoglobin A1c 6.0 H 4.5-5.6 % Medical Emergencies . Who to Call and When: Medical Emergencies: If at any time you feel your situation is an emergency, please call 911 immediately. . Non-Emergent Contact Non-Emergency issues call your: Surgeon . . "Provider Documentation" section prepared by Stephania M. Illig. . Core Measure Problem Core Measures: None [place] Drug Monitoring Program Search Results: patient reviewed within database, no issues identified
[2017-11-14] MEDS: DOCUSATE SODIUM 100 MG CAP PO SCH ×2 (08:55→20:04)
[2017-11-14] MEDS: CHOLECALCIFEROL 1000 INTER.UNIT TAB PO SCH (08:56)
[2017-11-14] MEDS: ASPIRIN 81 MG ECTAB PO SCH ×2 (08:56→20:04)
[2017-11-14] MEDS: PANTOprazole SOD 40 MG TAB PO SCH (08:56)
[2017-11-14] MEDS: MULTIVITAMIN TAB PO SCH (08:56)
[2017-11-14] MEDS: LOSARTAN POTASSIUM 25 MG TAB PO SCH (08:58)
[2017-11-14 15:08] VITALS: BP 109/57; PULSE 68; TEMP 36.9; O2SAT 98
[2017-11-14] MEDS: LACTOBACILLUS ACIDOPHILUS (FLORANEX) TAB PO SCH (20:04)
[2017-11-14] MEDS: METOPROLOL SUCC 25MG EXT REL TAB PO SCH (20:04)
[2017-11-14] MEDS: SENNA 8.6 MG TAB PO SCH (20:05)
[2017-11-14 20:06] VITALS: BP 142/75; PULSE 81
[2017-11-14 23:11] VITALS: BP 134/77; PULSE 88; TEMP 37; O2SAT 96
[2017-11-15] MEDS: OXYCODONE HCL IR 5 MG TAB (IMMEDIATE RELEASE) PO PRN ×2 (04:00→07:48)
[2017-11-15] MEDS: ACETAMINOPHEN 500 MG TAB PO SCH (05:43)
[2017-11-15 07:26] VITALS: BP 112/67; PULSE 71; TEMP 37; O2SAT 94
[2017-11-15] MEDS: PANTOprazole SOD 40 MG TAB PO SCH (08:53)
[2017-11-15] MEDS: CHOLECALCIFEROL 1000 INTER.UNIT TAB PO SCH (08:53)
[2017-11-15] MEDS: LOSARTAN POTASSIUM 25 MG TAB PO SCH (08:53)
[2017-11-15] MEDS: MULTIVITAMIN TAB PO SCH (08:54)
[2017-11-15] MEDS: DOCUSATE SODIUM 100 MG CAP PO SCH (08:54)
[2017-11-15] MEDS: ASPIRIN 81 MG ECTAB PO SCH (08:54)
--- NOTE | 2017-11-15 09:02 | Orthopedic Progress Note ---
Orthopedic Progress Note Date of Service Nov 15, 2017. Subjective Post OP Day: 3 Reports: feeling well Objective N/V intact, incision C/D/I, toes mobile Date Time Temp Pulse Resp B/P (MAP) Pulse Ox O2 Delivery O2 Flow Rate FiO2 11/15/17 07:26 37.0 71 19 112/67 (82) 94 Room Air 11/14/17 23:40 Room Air 11/14/17 23:11 37.0 88 22 134/77 (96) 96 Room Air 11/14/17 20:06 81 142/75 (97) 11/14/17 15:45 Room Air 11/14/17 15:08 36.9 68 18 109/57 (74) 98 Room Air Assessment & Plan Assessment: POD 3 s/p Left TKA history of stable ischemic heart disease with generally stable class 1-2 function capacity without recent angina, myocardial infarction or congestive heart failure, history of moderately severe aortic stenosis, though clinically compensated Plan: PT/OT DC PLANNING- D/C to [facility] PAIN MANAGEMENT- OXYCODONE, TYLENOL DVT PROPH- ASA 81MG BID Appreciate Cardiology consult Inhouse Planning Pain Management: Morphine, PO Tylenol, Oxy IR DVT Prophylaxis: TEDs, SCDs, ASA
[2017-11-15] MEDS ORDERED: ACET-24 PO (09:03)
[2017-11-15] MEDS ORDERED: ASPEC81 PO (09:04)
[2017-11-15] MEDS ORDERED: RXC5 PO (09:04)
[2017-11-15 13:04] VITALS: BP 112/67; PULSE 71; TEMP 37; O2SAT 94
--- NOTE | 2017-11-16 16:10 | Discharge Summary ---
Orthopedic Discharge Summary Admission Date/Reason Nov 12, 2017 at 09:27 Left Knee Osteoarthritis. Discharge Date/Disposition Nov 15, 2017 [facility] facility Diagnosis Principal Diagnosis: left knee osteoarthritis Procedure(s) Performed Left Total Knee Arthroplasty utilizing [employer] to non-block total knee arthroplasty size 4 femur to tibia Poly-[address] Maciel - Cardiology Medication Reconciliation New Medications: Acetaminophen (Sb Non-Aspirin Extra Stre) 500 Mg Tab 1000 MG PO Q8 for 14 Days, TAB Aspirin (Aspirin EC Low Dose) 81 Mg Ectab 81 MG PO BID for 28 Days Oxycodone HCl (Oxycodone HCl) 5 Mg Tab 5-10 MG PO Q4H PRN for Pain, #60 TAB Continued Medications: Apoaequorin (Prevagen) 10 Mg Cap 5 MG PO PRN PRN for MEMORY Cholecalciferol (Vitamin D) 2,000 Unit Tab 2000 UNITS PO QAM Losartan Potassium (Cozaar) 25 Mg Tab 12.5 MG PO QAM, TAB Metoprolol Succ (Toprol Xl) (Toprol-Xl) 25 Mg Tabcr 12.5 MG PO HS, TAB Multivitamin (Multivitamin) Tab 1 TAB PO QAM, 0 Refills DAMAGE CONTROL Nitroglycerin (Nitrostat) 0.4 Mg Tab 0.4 MG SL UD PRN for Chest Pain, BTL PLACE ONE TABLET UNDER THE TONGUE EVERY 5 MINUTES FOR UP TO 3 DOSES OVER 15 MINUTES IF NEEDED FOR CHEST PAIN. Probiotic Product (Probiotic) 1 Cap Cap 1 CAP QPM Thyroid ([place]ortez Thyroid) 30 Mg Tab 30 MG PO 4XWK TAKE 30 MG EVERY FRIDAY,FRIDAY,FRIDAY AND FRIDAY. Thyroid ([place]ez Thyroid) 30 Mg Tab 60 MG PO 3XWK TAKE 60 MG EVERY FRIDAY,FRIDAY AND FRIDAY. [Magnesium] () 1 TAB PO QAM Discontinued Medications: Aspirin (Aspirin Ec) 81 Mg Tab 81 MG PO DAILY Admission Physical Exam As per Admitting History & Physical. Hospital Course Patient was a same day admission after undergoing a successful left TKA. she tolerated the procedure well. Post-operatively, her activity was progressed and well tolerated. Please refer to daily progress notes and PT notes for complete details. After exam on 11/15/17, patient felt to be stable for discharge to [facility]. Patient will f/u in the office in 2 weeks for further evaluation including x-rays and incision check, sooner if having any issues or concerns. Below are pertinent labs/studies during their hospital stay: Last Vital Signs Documentation Date Time Temp Pulse Resp B/P (MAP) Pulse Ox O2 Delivery O2 Flow Rate FiO2 11/15/17 13:04 37.0 71 19 94 Room Air 11/15/17 07:26 112/67 (82) 11/12/17 16:12 2.0 Last Resulted CBC 11/13/17 06:24 Last Resulted BMP 11/13/17 06:24 Discharge Instructions ACTIVITY RECOMMENDATIONS: SELF CARE INSTRUCTIONS AFTER TOTAL KNEE REPLACEMENT A. You may need to continue a physical therapy program after discharge from the hospital. There are several options available to you. Your doctor will assist you in selecting the best one for you. 1. An out-patient facility 2 to 3 times a week for therapy or home therapy. 2. Continue working on all exercises taught to you in the hospital. Your goals should be to increase bending of your knee to 90 degrees and beyond and to fully straighten your knee. B. You may progress at your own pace from walking with a walker or crutches to a cane; then to no assistive devices. C. Make walking a part of your daily routine. Be up as much as comfortable with rest periods throughout the day. Rest with leg elevation is very important. Use the ice wrap frequently for the first 3-4 weeks. D. There are no restrictions on activities. You may ride in a car, shop, participate in analyst geochemical prospecting and all social activities. E. Wear the long elastic stockings (TAURUS hose) 20 hours a day for 2 weeks after surgery. They can be removed several times a day for laundering and for a bath. F. You may shower, no tub baths until cleared by your doctor. SPECIAL CARE INSTRUCTIONS: VERY IMPORTANT TO READ AND REVIEW A. There are a few signs you need to watch for after you are home. Call [facility] if you notice any of the followin. Increased severe knee pain. Some pain is expected especially when you exercise. 2. Increased swelling in your leg or knee; pain or swelling of the calf muscle in either lower leg. 3. Any fluid drainage from the incision. 4. Shortness of breath or chest pain. B. Please call [facility] at if you have any concerns or questions about your operation or recovery. The doctor or his nurse will return your call promptly. C. You must take antibiotics before dental work, bladder, bowel or other surgery. Your doctor will provide you with a permanent care to carry describing this precaution. IMPORTANT: * REMEMBER TO TAKE ASPIRIN, 81 MG, TWICE DAILY FOR 4 WEEKS UNLESS OTHERWISE DIRECTED. THIS IS YOUR BLOOD THINNER. * HIGH RISK PATIENTS MAY BE PRESCRIBED A STRONGER BLOOD THINNER. THIS WILL BE PROVIDED AT DISCHARGE. * CALL IF INCREASED PAIN, REDNESS, DRAINAGE OR FEVER GREATER THAT 101. * WEAR TAURUS HOSE 20 HOURS PER DAY FOR 2 WEEKS. * YOU MAY HAVE A LARGE BAND-AID LIKE DRESSING (SILVERON). THIS WILL REMAIN ON YOUR INCISION FOR 7 DAYS, THEN CAN BE REMOVED. IF INCISION IS LEAKING THROUGH DRESSING, CALL THE OFFICE . FOLLOW UP VISIT: If appointment is not already scheduled: Please call [facility] to make a follow-up appointment for 2 weeks after your surgery at . Please refer to the electronic Patient Visit Report (Discharge Instructions) for additional information.
== END 2017-11-15 13:30 | DRG 470 ==
LOC: C.ACU 08:15 → C.MSW 09:27 → ENRESERV 13:33
PROVIDERS: ADMIT Orthopaedic Surgery; ATTEND Orthopaedic Surgery
PROC: 0SRD0J9 Replacement of Left Knee Joint with Synthetic Substitute, Cemented, Open Approach (ICD-10-PCS; principal; 2017-11-12 10:00)
DX: M17.12 Unilateral primary osteoarthritis, left knee (principal); I10 Essential (primary) hypertension; I25.5 Ischemic cardiomyopathy; Z79.899 Other long term (current) drug therapy; Z95.5 Presence of coronary angioplasty implant and graft; Z88.0 Allergy status to penicillin; Z88.1 Allergy status to other antibiotic agents

== ENCOUNTER 2018-01-08 17:11 | Inpatient (IN) | payer OTHER ==
[~2018-01-08] VITALS: Ht 147.3 cm; Wt 68.9 kg
[~2018-01-08 17:11] MED LIST changes: +ACET-24 PO; -ACETAMINOPHEN 500 MG TAB PO SCH; +ASPEC81 PO; -BUPIVACAINE 0.25% 30 ML VIAL ONE; -BUPIVACAINE 0.5 % 5 MG/1 ML PF 10ML VIAL ONE; -CLINDAMYCIN 600 MG/54 ML D5W 54 ML IV SCH; -CeleBREX 200 MG CAP PO SCH; -DEXAMETHASONE 4 MG TAB PO SCH; -FAMOTIDINE 20 MG TAB PO SCH; -GABAPENTIN 300 MG CAP PO SCH; -LACTATED RINGER'S 1000ML IV SCH; -LACTATED RINGER'S 500 ML IV SCH; -METOCLOPRAMIDE HCL 10 MG TAB PO SCH; -ROPIVACAINE 5MG/ML 30 ML 150 MG, BUPIVACAINE 0.5% MPF INJ 30 ML, EpINEphrine HCL INJ 0.... INFIL SCH; +RXC5 PO
[2018-01-08 17:25] VITALS: Ht 147.3 cm; Wt 68.9 kg
--- NOTE | 2018-01-08 17:59 | EMERGENCY ROOM VISIT NOTE ---
History Report prepared by Tien: Jayme Vasquez Under the Supervision of: Dr. Mariia Prado D.O. First contact with patient: 17:39 Chief Complaint: REFERRED BY DOCTOR Stated Complaint: PNEUMONIA History of Present Illness The patient is a 77 year old female who presents to the Emergency Room with complaints of constant shortness of breath starting today which is worse with exertion. She was seen at her PCP, and she was diagnosed with pneumonia after having a chest x-ray. She additionally notes that she she has nasal congestion and ears are clogged. She additionally notes that she has had a dry cough, nausea, chills, though she denies any fever, light headedness, dizziness, and diarrhea. The patient reports that she had a knee replacement 8 weeks ago, and she states that she has had pneumonia before a long time ago. She states that she has recently had decreased appetite. Source of History: patient Onset: today Position: other (global) Quality: other (shortness of breath) Timing: constant Modifying Factors (Worsening): exertion Associated Symptoms: + chills, + cough, + nausea, No fevers, No diarrhea Review of Systems See HPI for pertinent positives & negatives. A total of 10 systems reviewed and were otherwise negative. Past Medical & Surgical Medical Problems: (1) CAD (coronary artery disease) (2) Chronic systolic heart failure (3) CKD (chronic kidney disease), stage III (4) GERD (gastroesophageal reflux disease) (5) History of - myocardial infarction (6) History of diverticulosis (7) History of GI bleed (8) Hypertension (9) Hypothyroidism (10) Ischemic cardiomyopathy Surgical Problems: (1) Deliveries by (2) H/O: hysterectomy (3) History of - hysterectomy (4) S/P angioplasty with stent (5) S/P BSO (bilateral salpingo-oophorectomy) (6) S/P TKR (total knee replacement) (7) S/P tonsillectomy and adenoidectomy Family History Cancer MOTHER (Kidney CA) SISTER (Colon CA) AUNT (Colon CA) Diabetes mellitus MOTHER Heart disease MOTHER SISTER Hypertension Social History Smoking Status: Never Smoker Alcohol Use: none Drug Use: none Marital Status: Housing Status: lives alone Occupation Status: retired Current/Historical Medications Scheduled Aspirin (Aspirin Ec), 81 MG PO DAILY Cholecalciferol (Vitamin D), 2,000 UNITS PO QAM Ferrous Sulfate (Ferrous Sulfate), 1 TAB PEG BID Losartan Potassium (Cozaar), 12.5 MG PO QAM Metoprolol Succ (Toprol Xl) (Toprol-Xl), 12.5 MG PO HS Multivitamin (Multivitamin), 1 TAB PO QAM Probiotic Product (Probiotic), 1 CAP QPM Thyroid (Flushing Thyroid), 30 MG PO 4XWK Thyroid (Flushing Thyroid), 60 MG PO 3XWK [Magnesium], 1 TAB PO QAM Scheduled PRN Apoaequorin (Prevagen), 5 MG PO PRN PRN for MEMORY Nitroglycerin (Nitrostat), 0.4 MG SL UD PRN for Chest Pain Allergies Coded Allergies: Clopidogrel (Verified Allergy, Mild, RASH, 01/08/18) n/a Penicillins (Verified Allergy, Mild, RASH, 01/08/18) Tetracycline (Verified Allergy, Mild, UNKNOWN, 01/08/18) Ranitidine (Verified Adverse Reaction, Intermediate, PALPITATIONS, 01/08/18 ) Lisinopril (Verified Adverse Reaction, Unknown, DRY COUGH, 01/08/18) Physical Exam Vital Signs Date Time Temp Pulse Resp B/P (MAP) Pulse Ox O2 Delivery O2 Flow Rate FiO2 01/08/18 20:30 92 18 147/87 97 Room Air 01/08/18 19:52 90 16 145/79 96 01/08/18 18:07 92 24 136/76 97 Room Air 01/08/18 17:25 36.2 97 18 157/83 96 Room Air Physical Exam GENERAL: alert, well appearing, well nourished, no distress, non-toxic EYE EXAM: normal conjunctiva, PERRL and EOM's grossly intact OROPHARYNX: no exudate, no erythema, lips, buccal mucosa, and tongue normal and mucous membranes are moist NECK: supple, no nuchal rigidity, no adenopathy, non-tender LUNGS: Fine bibasilar rales. Normal chest wall mechanics, no wheezes/rhonchi, no significantly increased work of breathing, no retractions, no nasal flaring or tripoding HEART: Soft systolic ejection murmur, S1 normal and S2 normal ABDOMEN: abdomen soft, non-tender, normo-active bowel sounds, no masses, no rebound or guarding. BACK: Back is symmetrical on inspection and there is no deformity, no midline tenderness, no CVA tenderness. SKIN: no rashes and no bruising UPPER EXTREMITIES: upper extremities are grossly normal. LOWER EXTREMITIES: She has a well healed vertical midline incision to the left knee. Trace to 1+ lower extremity edema. NEURO EXAM: Normal sensorium, cranial nerves II-XII grossly intact, normal speech, no gross weakness of arms, no gross weakness of legs. Medical Decision & Procedures Laboratory Results Test 01/08/18 19:12 01/08/18 19:34 01/08/18 19:38 Prothrombin Time 11.6 SECONDS (9.0-12.0) Prothromb Time International Ratio 1.1 (0.9-1.1) Activated Partial Thromboplast Time 29.3 SECONDS (21.0-31.0) Partial Thromboplastin Ratio 1.1 Total Bilirubin 0.4 mg/dl (0.2-1) Aspartate Amino Transf (AST/SGOT) 19 U/L (15-37) Alanine Aminotransferase (ALT/SGPT) 20 U/L (12-78) Alkaline Phosphatase 105 U/L (45-117) Pro-B-Type Natriuretic Peptide 75274 pg/ml (0-1800) Total Protein 7.4 gm/dl (6.4-8.2) Albumin 3.4 gm/dl (3.4-5.0) Globulin 4.0 gm/dl (2.5-4.0) Albumin/Globulin Ratio 0.9 (0.9-2) Bedside Lactic Acid Venous 1.19 mmol/L (0.90-1.70) Influenza Type A (RT-PCR) Neg for Influ A (NEG) Influenza Type A Antigen Neg for Influ A (NEG) Influenza Type B Antigen Neg for Influ B (NEG) Influenza Type B (RT-PCR) Neg for Influ B (NEG) Laboratory results per my review. Medications Administered Medications (Trade) Dose Ordered Sig/Thelma Route Start Time Stop Time Status Last Admin Dose Admin Furosemide (Lasix Inj) 40 mg NOW STAT IV 01/08/18 20:12 01/08/18 20:13 DC 01/08/18 20:31 40 MG ECG Per My Interpretation Indication: SOB/dyspnea Rate (beats per minute): 93 Rhythm: normal sinus Findings: PVC, Q waves (V2 and V3), other (Normal axis, normal intervals, low voltage QRS) ED Course 1738: The patient was evaluated in room B11. A complete history and physical exam was performed. 1928: I reevaluated the patient, and she was doing well. Her labs were just drawn. 2011: Lasix 40mg IV 2016: Upon reevaluation, the patient is doing well. I discussed the findings and the treatment plan with the patient. She expresses agreement and understanding. She will be evaluated for further management. 2020: I reviewed the patient's case with Dr. Obinna Javier. He will evaluate the patient for further management. Medical Decision Differential diagnosis: Etiologies such as infections, reactive airway disease, pneumonia, pneumothorax , COPD, CHF, cardiac ischemia, pulmonary embolism, musculoskeletal, gastrointestinal, as well as others were entertained. Patient here well-appearing despite complaints, symptoms initially during evaluation were suggestive of congestive heart failure than pneumonia. Patient afebrile and a significant leukocytosis. Patient with prior history of decreased ejection fraction noted on review of EMR. Patient's chest x-ray is performed outpatient shows bilateral pulmonary edema, patient has an elevated BNP. Patient started on Lasix in the emergency room. Patient never hypoxic requiring oxygen, other vital signs stable. Patient with elevated troponin likely secondary to congestive heart failure I do not feel patient has primary ACS or other vascular pathology. I do not suspect bacteremia/sepsis. Possible right-sided infiltrate read on outpatient chest x-ray. Discussed this with hospitalist at time of presentation. They would like to evaluate and then decide on antibiotics given other symptoms more convincing for congestive heart failure. I do not suspect PE contributing to shortness of breath, no lower extremity findings suggestive of DVT at this time. Discussed patient's presentation and recent symptoms with hospitalist for additional evaluation and treatment. Medication Reconcilliation Current Medication List: was personally reviewed by mt Blood Pressure Screening Patient's blood pressure: Elevated blood pressure Monitored by the hospitalist. Consults Time Called: 2016 Consulting Physician: Dr. Obinna Javier Returned Call: 2020 I reviewed the patient's case with Dr. Obinna Javier. He will evaluate the patient for further management. Impression Primary Impression: Dyspnea Additional Impressions: CHF (congestive heart failure) Elevated troponin Critical Care I have personally spent greater than 35 minutes of critical care time in the direct management of this patient. This includes bedside care, interpretation of diagnostic studies, and testing, discussion with consultants, patient, and family members, and other required patient management activities. This 35 minutes is in excess of all separately billable procedures. Scribe Attestation The scribe's documentation has been prepared under my direction and personally reviewed by me in its entirety. I confirm that the note above accurately reflects all work, treatment, procedures, and medical decision making performed by me. Departure Information Dispostion Being Evaluated By Hospitalist Referrals No Doctor, Assigned (PCP) Patient Instructions My [facility] Problem Qualifiers Primary Impression: Dyspnea Dyspnea type: unspecified Qualified Codes: R06.00 - Dyspnea, unspecified Additional Impressions: CHF (congestive heart failure) Heart failure type: unspecified Heart failure chronicity: acute on chronic Qualified Codes: I50.9 - Heart failure, unspecified
[2018-01-08] MEDS ORDERED: ASPI81TA28 PO (19:37)
[2018-01-08 19:38] LABS: BASO % 0.3 %; BASO ABS # 0.03 K/uL (0-0.2); EOS % 0.6 %; EOS ABS # 0.07 K/uL (0-0.5); HEMOGLOBIN 9.3 g/dL (12.0-16.0); IG# 0.03 K/uL (0.00-0.02); LYMPH % 13.4 %; LYMPH ABS # 1.46 K/uL (1.2-3.4); MEAN CELL VOLUME 80.3 fL (80-100); MEAN CORPUSCULAR HEMOGLOBIN 25.8 pg (25-34); MEAN CORPUSCULAR HGB CONC 32.1 g/dl (32-36); MEAN PLATELET VOLUME 9.1 fL (7.4-10.4); MONO % 10.1 %; NEUT % 75.3 %; NEUT ABS # 8.22 K/uL (1.4-6.5); PLATELET COUNT 352 K/uL (130-400); RED CELL DISTRIBUTION WIDTH CV 15.1 % (11.5-14.5); RED CELL DISTRIBUTION WIDTH SD 44.1 fL (36.4-46.3); WHITE BLOOD COUNT 10.91 K/uL (4.8-10.8)
[2018-01-08 19:55] LABS: ALBUMIN 3.4 gm/dl (3.4-5.0); CALCIUM 8.8 mg/dl (8.5-10.1); CREATININE 1.08 mg/dl (0.60-1.20); POTASSIUM 4.2 mmol/L (3.5-5.1)
[2018-01-08 19:58] LABS: INR 1.1 (0.9-1.1)
[2018-01-08 20:10] LABS: INFLUENZA B ANTIGEN Neg for Influ B (NEG)
[2018-01-08 20:10] LABS: TOTAL PROTEIN 7.4 gm/dl (6.4-8.2)
[2018-01-08] MEDS ORDERED: FUROSEMIDE 40 MG/4 ML VIAL IV STA (20:12)
--- NOTE | 2018-01-08 21:11 | DIAGNOSTIC IMAGING REPORT ---
CHEST ONE VIEW PORTABLE HISTORY: 77 years-old Female sob acute shortness of breath COMPARISON: Chest radiograph 10/22/2017 TECHNIQUE: Portable AP view of the chest FINDINGS: Cardiac silhouette is enlarged. Atherosclerosis of the aorta. There is bilateral interstitial coarsening with patchy right perihilar, right lateral midlung and bibasilar alveolar opacities. Trace fluid is noted within the minor fissure with trace bilateral pleural effusions. There is no pneumothorax identified. Small hiatal hernia. Degenerative changes involve the bilateral shoulders with probable bilateral rotator cuff calcific tendinosis. IMPRESSION: 1. Cardiomegaly with interstitial coarsening suggests mild pulmonary edema with trace bilateral pleural effusions. 2. Patchy right perihilar, lateral right midlung and bibasilar opacities suggest asymmetric alveolar pulmonary edema or pneumonitis. The above report was generated using voice recognition software. It may contain grammatical, syntax or spelling errors. Electronically signed by: Sb Liu M.D. 01/08/2018 9:09 PM Dictated Date/Time: 01/08/2018 9:07 PM
[2018-01-08 21:12] LABS: PTT PATIENT 29.3 SECONDS (21.0-31.0)
--- NOTE | 2018-01-08 21:25 | History and Physical ---
History & Physical Date & Time of Service: Jan 08, 2018 at 21:17 Chief Complaint: Pneumonia Primary Care Physician: Rey Nation M.D. History of Present Illness Source: patient, family (at bedside), clinic records, hospital records This is a 77-year-old female past medical history of systolic heart failure, hypertension, CAD (s/p stents), severe aortic stenosis, paroxysmal atrial tachycardia and other medical problems listed below who presents with worsening shortness of breath over the past 4 days. Patient has felt congested for the past month, endorsing nasal congestion, ear fullness and a non-productive cough but denies any fever, chills or sore throat. Over the weekend, patient began to experience dyspnea on exertion. At baseline, she is able to climb the stairs of her home without a problem, but over the past 4 days she has been crawling up the stairs due to shortness of breath. Denies recent weight gain or LE swelling. Had a knee replacement [address] Orellana. Endorses pleuritic pain with cough, L knee/calf pain, nausea and decreased appetite. Denies fever, chills, lightheadedness, headache, abdominal pain, vomiting, bowel or bladder changes, weakness or numbness in extremities. Was evaluated by PCP earlier today and had a chest x-ray performed which showed bilateral lower lobe pneumonia. Patient was sent to the ED for further evaluation. Past Medical/Surgical History Medical Problems: (1) CAD (coronary artery disease) Permanent Comment: s/p stents in 2012 Status: Chronic (2) Chronic systolic heart failure Permanent Comment: TTE 05/24/2015- Normal LV chamber size with mild concentric LVH. Mildly reduced LV systolic function, EF 40-45%. There are regional wall motion abnormalities as specified. Grade II diastolic dysfunction. Aortic valve sclerosis moderate, without significant aortic valvular stenosis. Mild aortic regurgitation. Mild mitral regurgitation. Mild tricuspid regurgitation. Status: Chronic (3) CKD (chronic kidney disease), stage III Status: Chronic (4) GERD (gastroesophageal reflux disease) Status: Chronic (5) History of - myocardial infarction Status: Chronic (6) History of diverticulosis Status: Chronic (7) History of GI bleed Status: Chronic (8) Hypertension Status: Chronic (9) Hypothyroidism Status: Chronic (10) Ischemic cardiomyopathy Status: Chronic Surgical Problems: (1) Deliveries by Status: Chronic (2) H/O: hysterectomy Status: Chronic (3) History of - hysterectomy Status: Chronic (4) S/P angioplasty with stent Permanent Comment: 06/2013- drug eluting stent to LAD 04/2015- drug eluting stent to ostial RCA Status: Chronic (5) S/P BSO (bilateral salpingo-oophorectomy) Status: Chronic (6) S/P tonsillectomy and adenoidectomy Status: Chronic Family History Cancer MOTHER (Kidney CA) SISTER (Colon CA) AUNT (Colon CA) Diabetes mellitus MOTHER Heart disease MOTHER SISTER Hypertension Social History Smoking Status: Never Smoker Drug Use: none Marital Status: Housing status: lives alone Occupational Status: retired Immunizations History of Influenza Vaccine: No History of Tetanus Vaccine?: Unknown History of Pneumococcal: Yes History of Hepatitis B Vaccine: Unknown Allergies Coded Allergies: Clopidogrel (Verified Allergy, Mild, RASH, 01/08/18) n/a Penicillins (Verified Allergy, Mild, RASH, 01/08/18) Tetracycline (Verified Allergy, Mild, UNKNOWN, 01/08/18) Ranitidine (Verified Adverse Reaction, Intermediate, PALPITATIONS, 01/08/18 ) Lisinopril (Verified Adverse Reaction, Unknown, DRY COUGH, 01/08/18) Home Medications Scheduled Aspirin (Aspirin Ec), 81 MG PO DAILY Cholecalciferol (Vitamin D), 2,000 UNITS PO QAM Ferrous Sulfate (Ferrous Sulfate), 1 TAB PEG BID Losartan Potassium (Cozaar), 12.5 MG PO QAM Metoprolol Succ (Toprol Xl) (Toprol-Xl), 12.5 MG PO HS Multivitamin (Multivitamin), 1 TAB PO QAM Probiotic Product (Probiotic), 1 CAP QPM Thyroid ([place] Thyroid), 30 MG PO 4XWK Thyroid ([place] Thyroid), 60 MG PO 3XWK [Magnesium], 1 TAB PO QAM Scheduled PRN Apoaequorin (Prevagen), 5 MG PO PRN PRN for MEMORY Nitroglycerin (Nitrostat), 0.4 MG SL UD PRN for Chest Pain Review of Systems Ten systems reviewed and negative except as noted in the HPI. Physical Exam Vital Signs Date Time Temp Pulse Resp B/P (MAP) Pulse Ox O2 Delivery O2 Flow Rate FiO2 01/08/18 20:30 92 18 147/87 97 Room Air 01/08/18 19:52 90 16 145/79 96 01/08/18 18:07 92 24 136/76 97 Room Air 01/08/18 17:25 36.2 97 18 157/83 96 Room Air General Appearance: WD/WN, no apparent distress, + pertinent finding (Sitting upright, breathing comfortably on room air ) Head: normocephalic, atraumatic Eyes: normal inspection, PERRL, sclerae normal ENT: normal ENT inspection, hearing grossly normal, pharynx normal (moist mucous membranes ) Neck: supple, thyroid normal, trachea midline Respiratory/Chest: chest non-tender, no respiratory distress, no accessory muscle use, + crackles (Bibasilar ) Cardiovascular: regular rate, rhythm, normal peripheral pulses, + systolic murmur Abdomen/GI: non tender, soft, no organomegaly Back: normal inspection Extremities/Musculoskelatal: normal inspection, no pedal edema, + calf tenderness (left ), + pertinent finding ( L knee with well-healing vertical incision) Neurologic/Psych: no motor/sensory deficits, alert, normal mood/affect, oriented x 3 Skin: normal color, warm/dry, no rash Diagnostics Laboratory Results Results Past 24 Hours Test 01/08/18 19:12 01/08/18 19:34 01/08/18 19:38 01/08/18 20:34 Range/Units White Blood Count 10.91 4.8-10.8 K/uL Red Blood Count 3.61 4.2-5.4 M/uL Hemoglobin 9.3 12.0-16.0 g/dL Hematocrit 29.0 37-47 % Mean Corpuscular Volume 80.3 80-100 fL Mean Corpuscular Hemoglobin 25.8 25-34 pg Mean Corpuscular Hemoglobin Concent 32.1 32-36 g/dl Platelet Count 352 130-400 K/uL Mean Platelet Volume 9.1 7.4-10.4 fL Neutrophils (%) (Auto) 75.3 % Lymphocytes (%) (Auto) 13.4 % Monocytes (%) (Auto) 10.1 % Eosinophils (%) (Auto) 0.6 % Basophils (%) (Auto) 0.3 % Neutrophils # (Auto) 8.22 1.4-6.5 K/uL Lymphocytes # (Auto) 1.46 1.2-3.4 K/uL Monocytes # (Auto) 1.10 0.11-0.59 K/uL Eosinophils # (Auto) 0.07 0-0.5 K/uL Basophils # (Auto) 0.03 0-0.2 K/uL RDW Standard Deviation 44.1 36.4-46.3 fL RDW Coefficient of Variation 15.1 11.5-14.5 % Immature Granulocyte % (Auto) 0.3 % Immature Granulocyte # (Auto) 0.03 0.00-0.02 K/uL Prothrombin Time 11.6 9.0-12.0 SECONDS Prothromb Time International Ratio 1.1 0.9-1.1 Activated Partial Thromboplast Time 29.3 21.0-31.0 SECONDS Partial Thromboplastin Ratio 1.1 Sodium Level 134 136-145 mmol/L Potassium Level 4.2 3.5-5.1 mmol/L Chloride Level 102 98-107 mmol/L Carbon Dioxide Level 23 21-32 mmol/L Anion Gap 8.0 3-11 mmol/L Blood Urea Nitrogen 15 7-18 mg/dl Creatinine 1.08 0.60-1.20 mg/dl Est Creatinine Clear Calc Drug Dose 35.7 ml/min Estimated GFR () 56.5 Estimated GFR (Non- 48.8 BUN/Creatinine Ratio 14.3 10-20 Random Glucose 98 70-99 mg/dl Calcium Level 8.8 8.5-10.1 mg/dl Total Bilirubin 0.4 0.2-1 mg/dl Aspartate Amino Transf (AST/SGOT) 19 15-37 U/L Alanine Aminotransferase (ALT/SGPT) 20 12-78 U/L Alkaline Phosphatase 105 45-117 U/L Troponin I 0.052 0-0.045 ng/ml Pro-B-Type Natriuretic Peptide 46734 0-1800 pg/ml Total Protein 7.4 6.4-8.2 gm/dl Albumin 3.4 3.4-5.0 gm/dl Globulin 4.0 2.5-4.0 gm/dl Albumin/Globulin Ratio 0.9 0.9-2 Bedside Lactic Acid Venous 1.19 0.90-1.70 mmol/L Influenza Type A Antigen Neg for Influ A NEG Influenza Type B Antigen Neg for Influ B NEG Test 01/08/18 20:35 Range/Units Microbiology Results 01/08/18 Blood Culture, Received Pending 01/08/18 Blood Culture, Received Pending Diagnostic Radiology CXR: IMPRESSION: 1. Cardiomegaly with interstitial coarsening suggests mild pulmonary edema with trace bilateral pleural effusions. 2. Patchy right perihilar, lateral right midlung and bibasilar opacities suggest asymmetric alveolar pulmonary edema or pneumonitis. EKG NSR, possible left atrial enlargement. T wave inversion in inferior leads Impression Assessment and Plan This is a 77-year-old female past medical history of systolic heart failure, hypertension, CAD (s/p stents), severe aortic stenosis, paroxysmal atrial tachycardia and other medical problems listed below who presents with worsening shortness of breath over the past 4 days. Acute systolic CHF exacerbation: -Cough, dyspnea on exertion, SOB -BNP of 12,715 -CXR with cardiomegaly with interstitial coarsening suggests mild pulmonary edema with trace bilateral pleural effusions -Given 40mg IV lasix in ED -Cont metoprolol, losartan -Strict I&Os, daily weights -Repeat echo Bilateral lobe PNA: -Cough, congestion x 1 month. SOB x 4 days -CXR with patchy right perihilar, lateral right midlung and bibasilar opacities suggest asymmetric alveolar pulmonary edema or pneumonitis -Flu ag negative. PCR pending -Leukocytosis of 10.91. Monitor CBC -IV antibiotics -Blood cultures pending Elevated troponin: -Initial troponin of 0.052 -Likely 2/2 CHF, infection -No overt CP. Some pleuritic discomfort with coughing -Continue trending troponin overnight HTN: -Normotensive -Cont losartan, metoprolol CAD (s/p stents): -Cont baby aspirin Paroxysmal atrial tachycardia: -EKG with NSR -Cont metoprolol H/o Left knee arthroplasty: -Performed [address] Orellana -Cont tylenol PRN for pain Left calf pain: -Venous Doppler to rule out presence of DVT Hypothyroidism: -Cont [place] thyroid Code status: FULL per discussion with patient PCP: [facility] Dispo: Admit to telemetry. Plan to return home once medically stable. Patient seen in collaboration with Dr. Teague. Please see addendum. Resuscitation Status VTE Prophylaxis Will order VTE Prophylaxis: Yes Assessment/Plan IM ATTENDING : Patient seen and examined. History obtained from the patient, family, and records. Preceding documentation by Ms. Liz Amaro PA-C reviewed. In addition, patient gives history of dark stools for a few months now. Outpatient anemia workup showed iron deficiency. Stool Hemoccult done at the ER was positive. FINAL ASSESSMENT AND PLAN as follows: 1. Shortness of breath multifactorial. Decompensated heart failure, history of ischemic cardiomyopathy (EF 40-44%) subacute symptoms. Right-sided pneumonia, CAP, possible aspiration, no sepsis. 2. History of coronary artery disease, status post stenting. 3. Anemia subacute hemoglobin in the 8-11 range since October 2017 orthopedic surgery slow upper gastrointestinal bleed (gastritis, peptic ulcer disease as w differentials with burning epigastric discomfort symptoms as per patien) 4. Hypertension, stable. 5. valvular heart disease. (Moderate to severe aortic stenosis, MR recent TTE October 2017) 6. Leg swelling 2 to CHF rule out Deep venous thrombosis. PCU. Diuretic Rx Clindamycin, swallow eval, aspiration precautions for now. Strict IOs, daily weights, CHF education Cardiology consult RE decompensated heart failure Oral PPI for slow UGIB. Outpatient GI consult. LE Venous Dopplers ro DVT PT/OT evaluation. DVT prophylaxis, SCDs RE GI bleed. Full code.
[2018-01-08] MEDS ORDERED: FERR325T5 PEG (21:51)
[2018-01-08] MEDS ORDERED: CLINDAMYCIN IV 600 MG in DEXTROSE 5% 50ML 50 ML IV ONE (22:15)
[2018-01-08] MEDS ORDERED: LACTOBACILLUS ACIDOPHILUS (FLORANEX) TAB PO ONE (22:15)
[2018-01-08] MEDS ORDERED: PANTOprazole SOD 40 MG TAB PO STA (22:17)
[2018-01-08] MEDS ORDERED: LEVALBUTEROL/IPRATROPIUM NEB INH STA (22:22)
[2018-01-08] MEDS ORDERED: LEVALBUTEROL/IPRATROPIUM NEB INH PRN (22:30)
[2018-01-08] MEDS ORDERED: HYDROmorphone INJ 0.5 MG/0.5 ML SYR IV PRN (22:30)
[2018-01-08] MEDS ORDERED: NITROGLYCERIN 0.4 MG SL PER TAB CHARGE SL PRN (22:30)
[2018-01-08] MEDS ORDERED: PROCHLORPERAZINE INJ 5 MG in SYRINGE 4 ML IV PRN (22:30)
[2018-01-08] MEDS ORDERED: IPRATROPIUM BROMIDE NEB SOLN 0.02% 2.5 ML VIAL INH STA (22:42)
[2018-01-08] MEDS ORDERED: LEVALBUTEROL 1.25MG/0.5ML NEB INH STA (22:42)
[2018-01-08] MEDS ORDERED: LEVALBUTEROL 1.25MG/0.5ML NEB INH PRN (22:45)
[2018-01-08] MEDS ORDERED: IPRATROPIUM BROMIDE NEB SOLN 0.02% 2.5 ML VIAL INH PRN (22:45)
[2018-01-08] MEDS ORDERED: GUAIFENESIN 600 MG TABCR PO ONE (23:00)
[2018-01-08 23:38] LABS: INFLUENZA A PCR Neg for Influ A (NEG); INFLUENZA B PCR Neg for Influ B (NEG)
[2018-01-09] VITALS (9 sets, daily range): BP systolic 100–127; BP diastolic 61–73; PULSE 18–91; TEMP 36.6–37.2; O2SAT 92–97
--- NOTE | 2018-01-09 02:19 | HISTORY & PHYSICAL EXAMINATION ---
DATE OF ADMISSION: 01/08/2018 IM ATTENDING : Patient seen and examined. History obtained from the patient, family, and records. Preceding documentation by Ms. Liz Amaro PA-C reviewed. In addition, patient gives history of dark stools for a few months now. Outpatient anemia workup showed iron deficiency. Stool Hemoccult done at the ER was positive. FINAL ASSESSMENT AND PLAN as follows: 1. Shortness of breath multifactorial. Decompensated heart failure, history of ischemic cardiomyopathy (EF 40-44%) subacute symptoms. Right-sided pneumonia, CAP, possible aspiration, no sepsis. 2. History of coronary artery disease, status post stenting. 3. Anemia subacute hemoglobin in the 8-11 range since October 2017 orthopedic surgery slow upper gastrointestinal bleed (gastritis, peptic ulcer disease as w differentials with burning epigastric discomfort symptoms as per patien) 4. Hypertension, stable. 5. valvular heart disease. (Moderate to severe aortic stenosis, MR recent TTE October 2017) 6. Leg swelling 2 to CHF rule out Deep venous thrombosis. PCU. Diuretic Rx Clindamycin, swallow eval, aspiration precautions for now. Strict IOs, daily weights, CHF education Cardiology consult RE decompensated heart failure Oral PPI for slow UGIB. Outpatient GI consult. LE Venous Dopplers ro DVT PT/OT evaluation. DVT prophylaxis, SCDs RE GI bleed. Full code. MTDD
[2018-01-09] MEDS: ACETAMINOPHEN 325 MG TAB PO PRN (02:30)
[2018-01-09 05:43] LABS: BASO % 0.4 %; BASO ABS # 0.04 K/uL (0-0.2); EOS % 1.6 %; EOS ABS # 0.15 K/uL (0-0.5); HEMATOCRIT 26.8 % (37-47); HEMOGLOBIN 8.7 g/dL (12.0-16.0); IG# 0.03 K/uL (0.00-0.02); LYMPH % 16.7 %; LYMPH ABS # 1.53 K/uL (1.2-3.4); MEAN CELL VOLUME 79.5 fL (80-100); MEAN CORPUSCULAR HEMOGLOBIN 25.8 pg (25-34); MEAN CORPUSCULAR HGB CONC 32.5 g/dl (32-36); MONO % 14.1 %; MONO ABS # 1.29 K/uL (0.11-0.59); NEUT % 66.9 %; NEUT ABS # 6.12 K/uL (1.4-6.5); PLATELET COUNT 347 K/uL (130-400); RED CELL DISTRIBUTION WIDTH CV 15.2 % (11.5-14.5); RED CELL DISTRIBUTION WIDTH SD 43.9 fL (36.4-46.3); WHITE BLOOD COUNT 9.16 K/uL (4.8-10.8)
[2018-01-09] MEDS: CLINDAMYCIN HCL 150 MG CAP PO SCH ×4 (06:00→23:40)
[2018-01-09 06:23] LABS: CALCIUM 8.6 mg/dl (8.5-10.1); CREATININE 1.14 mg/dl (0.60-1.20); POTASSIUM 3.4 mmol/L (3.5-5.1)
[2018-01-09] MEDS ORDERED: ARMOUR THYROID 30 MG TAB PO SCH (06:30)
--- NOTE | 2018-01-09 07:05 | DIAGNOSTIC IMAGING REPORT ---
ULTRASOUND BILATERAL LOWER EXTREMITY VENOUS CLINICAL HISTORY: Lower extremity edema. COMPARISON STUDY: No priors. TECHNIQUE: Real-time, grayscale, and color Doppler sonography of the deep veins of the right and left lower extremity was performed from the inguinal crease to the calf. Compression and augmentation were utilized. FINDINGS: There is no sonographic evidence of deep venous thrombosis identified in the right or left lower extremity. The common femoral, superficial femoral, and popliteal veins are patent and normally compressible bilaterally. The greater saphenous vein and the profunda femoris vein at the junction with the common femoral vein are clear in both legs. The visualized calf veins are patent bilaterally. IMPRESSION: There is no sonographic evidence of deep venous thrombosis identified in the right or left lower extremity. Electronically signed by: Joselito Schultz M.D. 01/09/2018 7:03 AM Dictated Date/Time: 01/09/2018 7:03 AM
[2018-01-09] MEDS: PANTOprazole SOD 40 MG TAB PO SCH ×2 (08:01→20:50)
[2018-01-09] MEDS: FERROUS SULFATE 325 MG TAB PO SCH (08:01)
[2018-01-09] MEDS: GUAIFENESIN 600 MG TABCR PO SCH ×2 (08:01→20:50)
[2018-01-09] MEDS: ASPIRIN 81 MG ECTAB PO SCH (08:01)
[2018-01-09] MEDS: MULTIVITAMIN TAB PO SCH (08:01)
[2018-01-09] MEDS: LOSARTAN POTASSIUM 25 MG TAB PO SCH (08:01)
[2018-01-09] MEDS: LACTOBACILLUS ACIDOPHILUS (FLORANEX) TAB PO SCH ×3 (08:02→17:30)
[2018-01-09] MEDS ORDERED: [UNRECOGNIZED DRUG - OTHER] PRN (09:00)
[2018-01-09] MEDS ORDERED: FUROSEMIDE INJ 40 MG in SYRINGE 0 ML IV SCH (09:00)
--- NOTE | 2018-01-09 09:33 | Clinical Documentation Query ---
CLINICAL DOCUMENTATION QUERY 77 yo female admitted with systolic CHF and pneumonia. Hgb 11.7 October trending down to 8.7. In your clinical opinion is this patient being managed for: ( ) Acute blood-loss anemia ( ) Not Agree ( X ) Other explanation of clinical findings (Please Explain) - multifactorial anemia ( ) Unable to determine (Please Define) ( ) Need to Discuss The medical record reflects the following clinical findings, treatment, and risk factors. Clinical Indicators: As above, SOB Treatment: Type and screen, IV hydration, serial CBCs Risk Factors: S/P surgical intervention Please clarify and document your clinical opinion in the progress notes and discharge summary. Terms such as "probable", "suspected", "likely", "questionable", "possible", or "still to be ruled out" are acceptable. IF IN AGREEMENT, YOU MUST DOCUMENT ABOVE DIAGNOSTIC STATEMENT IN DAILY PROGRESS NOTES AND DISCHARGE SUMMARY. This document is not part of the patient's record. Thank You, Sarah Mejia RN [phone]
[2018-01-09] MEDS ORDERED: TROLAMINE SALICYLATE 10% CRM 255 APPLN/85 GM TUBE EXT PRN (09:45)
--- NOTE | 2018-01-09 11:45 | Cardiology Consultation ---
Cardiology Consultation Date of Service Jan 09, 2018. (Naty Reyes, REGULO) Cardiology Consultation Cardiology Consultation: Date: 01/09/18 Attending Tele Marketing Executive: Dr. Weston Requesting provider: Dr. Yeboah HISTORY OF PRESENT ILLNESS: 77-year-old female who follows with Dr. Fletcher for [facility] cardiology, past history of ischemic cardiomyopathy past CADE to the LAD in 2012 and RCA in 2014, moderate to severe per last echo/dobutamine stress echo in October 2017 prior to total left knee replacement. She underwent surgery in October without issues other than post op anemia. Over the last few weeks patient has noted increased edema in LE with progressive SOB. She went to see PCP yesterday and chest xray demonstrated b/l lower lobe pneumonia with CHF. She was referred to ER for evaluation. Upon arrival in ER, BNP was elevated consistent with CHF. WBC mildly elevated. Chest xray demonstrated lower lobe pneumonia with CHF, consistent with outpatient evaluation. Started on antibiotics. Treated with IV furosemide. Troponin minimall elevated. No chest pain. No acute EKG changes. At time of consult patient feeling better. SOB improving. No edema. No orthopnea , PND. No cough, fever, chills. No chest pain. Review of Systems: See HPI for pertinent positives. All other 10 point review of systems is negative. Medical Problems: (1) CAD (coronary artery disease) (2) Chronic systolic heart failure (3) CKD (chronic kidney disease), stage III (4) GERD (gastroesophageal reflux disease) (5) History of - myocardial infarction (6) History of diverticulosis (7) History of GI bleed (8) Hypertension (9) Hypothyroidism (10) Ischemic cardiomyopathy Surgical Problems: (1) Deliveries by (2) H/O: hysterectomy (3) History of - hysterectomy (4) S/P angioplasty with stent (5) S/P BSO (bilateral salpingo-oophorectomy) (6) S/P TKR (total knee replacement) (7) S/P tonsillectomy and adenoidectomy FAMILY HISTORY: Notable for heart disease. SOCIAL HISTORY: The patient is a nonsmoker, nondrinker. She lives in [place]. ALLERGIES: CLOPIDOGREL, LISINOPRIL,PENICILLINS, RANITIDINE, AND TETRACYCLINE. PHYSICAL EXAMINATION: Last 8 Hrs Date Time Temp Pulse Resp B/P (MAP) Pulse Ox O2 Delivery O2 Flow Rate FiO2 01/09/18 08:10 Room Air 01/09/18 07:19 36.6 75 18 105/62 (76) 95 Room Air 01/09/18 05:30 36.8 83 18 119/61 (80) 92 Room Air 01/09/18 03:49 Room Air GEN: A+Ox3. NAD HEENT: Normocephalic, atraumatic. Nares without discharge. Throat was clear. The patient has a slight lid lag on the left at baseline. NECK: Thin. There is no jugular venous distention. There is no carotid bruits. Carotid pulses are 2/4 without delay. LUNGS: faint bibasilar rales CARDIOVASCULAR: Regular with a grade 2/6 systolic murmur. There is no diastolic murmur. ABDOMEN: Soft, nontender. There is no palpable hepatosplenomegaly. There is no hepatojugular reflux. EXTREMITIES: No b/l LE edema. DATA: EKG on admission: Normal sinus rhythm Possible Left atrial enlargement Low voltage QRS Cannot rule out Anteroseptal infarct (cited on or before 26-JUN-2013) T wave abnormality, consider inferior ischemia Compared with prior Outpatient EKG - T wave inversion similar Repeat EKG this AM, 01/09 Normal sinus rhythm Anteroseptal infarct (cited on or before 26-JUN-2013) Abnormal ECG When compared with ECG of 08-JAN-2018 19:43, (unconfirmed) No significant change was found Chest xray: IMPRESSION: 1. Cardiomegaly with interstitial coarsening suggests mild pulmonary edema with trace bilateral pleural effusions. 2. Patchy right perihilar, lateral right midlung and bibasilar opacities suggest asymmetric alveolar pulmonary edema or pneumonitis. Venous duplex - no evidence of DVT b/l Labs: Last 24 Hours Test 01/08/18 19:12 01/08/18 19:34 01/08/18 19:38 01/08/18 21:42 White Blood Count 10.91 K/uL Red Blood Count 3.61 M/uL Hemoglobin 9.3 g/dL Hematocrit 29.0 % Mean Corpuscular Volume 80.3 fL Mean Corpuscular Hemoglobin 25.8 pg Mean Corpuscular Hemoglobin Concent 32.1 g/dl Platelet Count 352 K/uL Mean Platelet Volume 9.1 fL Neutrophils (%) (Auto) 75.3 % Lymphocytes (%) (Auto) 13.4 % Monocytes (%) (Auto) 10.1 % Eosinophils (%) (Auto) 0.6 % Basophils (%) (Auto) 0.3 % Neutrophils # (Auto) 8.22 K/uL Lymphocytes # (Auto) 1.46 K/uL Monocytes # (Auto) 1.10 K/uL Eosinophils # (Auto) 0.07 K/uL Basophils # (Auto) 0.03 K/uL RDW Standard Deviation 44.1 fL RDW Coefficient of Variation 15.1 % Immature Granulocyte % (Auto) 0.3 % Immature Granulocyte # (Auto) 0.03 K/uL Prothrombin Time 11.6 SECONDS Prothromb Time International Ratio 1.1 Activated Partial Thromboplast Time 29.3 SECONDS Partial Thromboplastin Ratio 1.1 Sodium Level 134 mmol/L Potassium Level 4.2 mmol/L Chloride Level 102 mmol/L Carbon Dioxide Level 23 mmol/L Anion Gap 8.0 mmol/L Blood Urea Nitrogen 15 mg/dl Creatinine 1.08 mg/dl Est Creatinine Clear Calc Drug Dose 35.7 ml/min Estimated GFR () 56.5 Estimated GFR (Non- 48.8 BUN/Creatinine Ratio 14.3 Random Glucose 98 mg/dl Calcium Level 8.8 mg/dl Total Bilirubin 0.4 mg/dl Aspartate Amino Transf (AST/SGOT) 19 U/L Alanine Aminotransferase (ALT/SGPT) 20 U/L Alkaline Phosphatase 105 U/L Troponin I 0.052 ng/ml 0.052 ng/ml Pro-B-Type Natriuretic Peptide 75342 pg/ml Total Protein 7.4 gm/dl Albumin 3.4 gm/dl Globulin 4.0 gm/dl Albumin/Globulin Ratio 0.9 Bedside Lactic Acid Venous 1.19 mmol/L Influenza Type A (RT-PCR) Neg for Influ A Influenza Type A Antigen Neg for Influ A Influenza Type B Antigen Neg for Influ B Influenza Type B (RT-PCR) Neg for Influ B Magnesium Level 2.4 mg/dl Thyroid Stimulating Hormone (TSH) 2.270 uIu/ml Test 01/09/18 05:14 White Blood Count 9.16 K/uL Red Blood Count 3.37 M/uL Hemoglobin 8.7 g/dL Hematocrit 26.8 % Mean Corpuscular Volume 79.5 fL Mean Corpuscular Hemoglobin 25.8 pg Mean Corpuscular Hemoglobin Concent 32.5 g/dl Platelet Count 347 K/uL Mean Platelet Volume 9.0 fL Neutrophils (%) (Auto) 66.9 % Lymphocytes (%) (Auto) 16.7 % Monocytes (%) (Auto) 14.1 % Eosinophils (%) (Auto) 1.6 % Basophils (%) (Auto) 0.4 % Neutrophils # (Auto) 6.12 K/uL Lymphocytes # (Auto) 1.53 K/uL Monocytes # (Auto) 1.29 K/uL Eosinophils # (Auto) 0.15 K/uL Basophils # (Auto) 0.04 K/uL RDW Standard Deviation 43.9 fL RDW Coefficient of Variation 15.2 % Immature Granulocyte % (Auto) 0.3 % Immature Granulocyte # (Auto) 0.03 K/uL Red Blood Cell Morphology Unremarkable Sodium Level 135 mmol/L Potassium Level 3.4 mmol/L Chloride Level 102 mmol/L Carbon Dioxide Level 26 mmol/L Anion Gap 7.0 mmol/L Blood Urea Nitrogen 16 mg/dl Creatinine 1.14 mg/dl Est Creatinine Clear Calc Drug Dose 33.9 ml/min Estimated GFR () 53.0 Estimated GFR (Non- 45.7 BUN/Creatinine Ratio 14.0 Random Glucose 97 mg/dl Calcium Level 8.6 mg/dl Troponin I 0.049 ng/ml Prior Data: Dobutamine Stress echo report reviewed from October 2017: Interpretation Summary The examination is adequate to evaluate the referral indication. There is moderate to severe aortic stenosis. The qualitative LV ejection fraction is 4044% (mildly reduced). The left atrium is severely enlarged (>48 ml/m^2,). Moderate mitral regurgitation is present. The stress test was terminated at the completion of the protocol. No symptoms were noted. The stress echo demonstrates a fixed wall motion abnormality without ischemia. There is a large sized apical, septal, and anteroseptal wall motion abnormality with hypokinesis to akinesis of the segments. IMPRESSION: 77-year-old female 1. Acute respiratory distress - multifactorial 2. Acute on chronic Systolic HF exacerbation - symptoms improving with IV diuresis. 3. Pneumonia 4. Mild troponin elevation, consistent with demand ischemia in the setting of underlying ischemic heart disease and acute CHF exacerbation. not indicative of ACS. No chest pain. 5. Moderate to severe per echo 10/2017 6. Recent dobutamine stress echo 10/2017 without inducible ischemia 7. History of CAD s/p LAD stent 2013 and RCA stent in 2016, Stable LVEF 40-44%. No recent anginal symptoms. 8. dyslipidemia- chart history of intolerant to statin medications 9. Anemia - to see hematology as outpatient PLAN: Continue IV diuretics today. Likely will need low dose diuretic on discharge given moderate to severe valvular disease with ischemic cardiomyopathy Continue treatment for pneumonia per hospitalist. Continue all home medications including ASA, beta pancho, ARB. No statin given hsitory of intolerance noted in outpatient records. Case discussed with Dr. Weston. Will follow. (Naty Reyes PA-C) CARDIOLOGY ATTENDING ADDENDUM: The patient was seen and personally examined. Agree with Naty Reyes PA-C's findings and plans as documented above. Subjective: Patient states that her breathing felt a little bit better this morning, but if she feels worse again. She has subjective chills. There are no objective fevers recorded. Exam: Breath sounds mildly decreased at the bases. Impression: As noted above Plan: Continue current dose of furosemide 40 mg daily (Price Weston,D.O.)
[2018-01-09] MEDS: TRAMADOL HCL 50 MG TAB PO PRN (16:16)
[2018-01-09] MEDS ORDERED: POTASSIUM CHLORIDE 20 MEQ TABCR PO STA (19:03)
--- NOTE | 2018-01-09 19:26 | Progress Note ---
Subjective Date of Service: Jan 09, 2018. Subjective Pt evaluation today including: conversation w/ patient, physical exam, lab review, review of studies, review of inpatient medication list Saw/examined the patient in room 280 She's feeling much better breathing status improved No chest pain/palpitations Problem List Medical Problems: (1) Aphasia Status: Acute (2) CHF (congestive heart failure) Status: Acute (3) Dyspnea Status: Acute (4) Elevated troponin Status: Acute (5) Fall Status: Acute (6) Flu-like symptoms Status: Acute (7) Left knee DJD Status: Acute (8) Left knee pain Status: Acute Review of Systems Constitutional: No fever, No chills Respiratory: No cough, No sputum, No shortness of breath Cardiac: No chest pain Abdomen: No pain, No nausea, No vomiting, No diarrhea Heme: No abnormal bleeding/bruising Medications Current Inpatient Medications Medications (Trade) Dose Ordered Sig/Thelma Route Start Time Stop Time Status Last Admin Dose Admin Lactobacillus Acidophilus (Floranex Tab) 4 tab TIDM PO 01/09/18 08:00 02/08/18 07:59 01/09/18 17:30 4 TAB Pantoprazole Sodium (Protonix Tab) 40 mg BID PO 01/09/18 09:00 02/08/18 08:59 01/09/18 08:01 40 MG Acetaminophen (Tylenol Tab) 650 mg Q4H PRN PO 01/08/18 22:30 02/07/18 22:29 01/09/18 02:30 650 MG Nitroglycerin (Nitrostat Tab) 0.4 mg UD PRN SL 01/08/18 22:30 02/07/18 22:29 Furosemide 40 mg/ Syringe 4 ml @ 4 mls/min DAILY IV 01/09/18 09:00 01/10/18 08:59 01/09/18 08:02 4 MLS/MIN Tramadol HCl (Ultram Tab) 25 mg Q6H PRN PO 01/08/18 22:30 02/07/18 22:29 01/09/18 16:16 25 MG Prochlorperazine Edisylate 5 mg/ Syringe 5 ml @ 5 mls/min Q6H PRN IV 01/08/18 22:30 02/07/18 22:29 Miscellaneous Information (Pharmacy Consult) 1 ea UD PRN N/A 01/09/18 09:00 02/08/18 08:59 Guaifenesin (Mucinex Contr Rel Tab) 600 mg Q12 PO 01/09/18 09:00 02/08/18 08:59 01/09/18 08:01 600 MG Hydromorphone HCl (Dilaudid Inj) 0.5 mg Q3H PRN IV 01/08/18 22:30 01/22/18 22:29 Aspirin (Ecotrin Tab) 81 mg DAILY PO 01/09/18 09:00 02/08/18 08:59 01/09/18 08:01 81 MG Ferrous Sulfate (Feosol Tab) 325 mg DAILY PO 01/09/18 09:00 02/08/18 08:59 01/09/18 08:01 325 MG Losartan Potassium (coZAAR TAB) 12.5 mg QAM PO 01/09/18 09:00 02/08/18 08:59 01/09/18 08:01 12.5 MG Metoprolol Succinate (Toprol Xl Tab) 12.5 mg HS PO 01/09/18 21:00 02/08/18 20:59 Multivitamins (Multivitamin Tab) 1 tab QAM PO 01/09/18 09:00 02/08/18 08:59 01/09/18 08:01 1 TAB Thyroid ([place] Thyroid Tab) 30 mg SuTuThSa@0630 PO 01/10/18 06:30 02/09/18 06:29 Thyroid ([place] Thyroid Tab) 60 mg MoWeFr@0630 PO 01/09/18 06:30 02/08/18 06:29 01/09/18 06:01 60 MG Ipratropium Lyman (Atrovent 0.02% 0.5MG/2.5ML Neb) 0.5 mg Q4H PRN INH 01/08/18 22:45 02/07/18 22:44 Levalbuterol (Xopenex 1.25MG/ 0.5ML Neb) 1.25 mg Q4H PRN INH 01/08/18 22:45 02/07/18 22:44 Clindamycin HCl (Cleocin Cap) 300 mg Q6 PO 01/09/18 06:00 01/16/18 05:59 01/09/18 17:30 300 MG Trolamine Salicylate (Myoflex Cream) 1 appln BID PRN EXT 01/09/18 09:45 02/08/18 09:44 01/09/18 13:38 1 APPLN Objective Vital Signs Date Time Temp Pulse Resp B/P (MAP) Pulse Ox O2 Delivery O2 Flow Rate FiO2 01/09/18 16:00 95 Room Air 01/09/18 15:42 36.9 86 16 105/65 (78) 95 Room Air 01/09/18 11:59 Room Air 01/09/18 11:43 36.6 73 20 100/61 (74) 96 Room Air 01/09/18 08:10 Room Air 01/09/18 07:19 36.6 75 18 105/62 (76) 95 Room Air 01/09/18 05:30 36.8 83 18 119/61 (80) 92 Room Air 01/09/18 03:49 Room Air 01/09/18 01:00 37.2 91 18 127/73 (91) 96 Room Air 01/09/18 00:00 Room Air 01/08/18 23:22 86 18 152/82 97 01/08/18 23:22 86 01/08/18 21:30 Room Air 01/08/18 20:30 92 18 147/87 97 Room Air 01/08/18 19:52 90 16 145/79 96 Physical Exam General Appearance: no apparent distress Respiratory/Chest: no respiratory distress, no accessory muscle use, + decreased breath sounds Cardiovascular: regular rate, rhythm, no edema, + systolic murmur Extremities: normal range of motion, non-tender, normal inspection, no pedal edema, no calf tenderness Neurologic/Psychiatric: no motor/sensory deficits, alert, normal mood/affect Skin: normal color Lymphatic: no adenopathy Laboratory Results Last 24 Hours Test 01/08/18 19:12 01/08/18 19:34 01/08/18 19:38 01/08/18 21:42 White Blood Count 10.91 K/uL Red Blood Count 3.61 M/uL Hemoglobin 9.3 g/dL Hematocrit 29.0 % Mean Corpuscular Volume 80.3 fL Mean Corpuscular Hemoglobin 25.8 pg Mean Corpuscular Hemoglobin Concent 32.1 g/dl Platelet Count 352 K/uL Mean Platelet Volume 9.1 fL Neutrophils (%) (Auto) 75.3 % Lymphocytes (%) (Auto) 13.4 % Monocytes (%) (Auto) 10.1 % Eosinophils (%) (Auto) 0.6 % Basophils (%) (Auto) 0.3 % Neutrophils # (Auto) 8.22 K/uL Lymphocytes # (Auto) 1.46 K/uL Monocytes # (Auto) 1.10 K/uL Eosinophils # (Auto) 0.07 K/uL Basophils # (Auto) 0.03 K/uL RDW Standard Deviation 44.1 fL RDW Coefficient of Variation 15.1 % Immature Granulocyte % (Auto) 0.3 % Immature Granulocyte # (Auto) 0.03 K/uL Prothrombin Time 11.6 SECONDS Prothromb Time International Ratio 1.1 Activated Partial Thromboplast Time 29.3 SECONDS Partial Thromboplastin Ratio 1.1 Sodium Level 134 mmol/L Potassium Level 4.2 mmol/L Chloride Level 102 mmol/L Carbon Dioxide Level 23 mmol/L Anion Gap 8.0 mmol/L Blood Urea Nitrogen 15 mg/dl Creatinine 1.08 mg/dl Est Creatinine Clear Calc Drug Dose 35.7 ml/min Estimated GFR () 56.5 Estimated GFR (Non- 48.8 BUN/Creatinine Ratio 14.3 Random Glucose 98 mg/dl Calcium Level 8.8 mg/dl Total Bilirubin 0.4 mg/dl Aspartate Amino Transf (AST/SGOT) 19 U/L Alanine Aminotransferase (ALT/SGPT) 20 U/L Alkaline Phosphatase 105 U/L Troponin I 0.052 ng/ml 0.052 ng/ml Pro-B-Type Natriuretic Peptide 18945 pg/ml Total Protein 7.4 gm/dl Albumin 3.4 gm/dl Globulin 4.0 gm/dl Albumin/Globulin Ratio 0.9 Bedside Lactic Acid Venous 1.19 mmol/L Influenza Type A (RT-PCR) Neg for Influ A Influenza Type A Antigen Neg for Influ A Influenza Type B Antigen Neg for Influ B Influenza Type B (RT-PCR) Neg for Influ B Magnesium Level 2.4 mg/dl Thyroid Stimulating Hormone (TSH) 2.270 uIu/ml Test 01/09/18 05:14 White Blood Count 9.16 K/uL Red Blood Count 3.37 M/uL Hemoglobin 8.7 g/dL Hematocrit 26.8 % Mean Corpuscular Volume 79.5 fL Mean Corpuscular Hemoglobin 25.8 pg Mean Corpuscular Hemoglobin Concent 32.5 g/dl Platelet Count 347 K/uL Mean Platelet Volume 9.0 fL Neutrophils (%) (Auto) 66.9 % Lymphocytes (%) (Auto) 16.7 % Monocytes (%) (Auto) 14.1 % Eosinophils (%) (Auto) 1.6 % Basophils (%) (Auto) 0.4 % Neutrophils # (Auto) 6.12 K/uL Lymphocytes # (Auto) 1.53 K/uL Monocytes # (Auto) 1.29 K/uL Eosinophils # (Auto) 0.15 K/uL Basophils # (Auto) 0.04 K/uL RDW Standard Deviation 43.9 fL RDW Coefficient of Variation 15.2 % Immature Granulocyte % (Auto) 0.3 % Immature Granulocyte # (Auto) 0.03 K/uL Red Blood Cell Morphology Unremarkable Sodium Level 135 mmol/L Potassium Level 3.4 mmol/L Chloride Level 102 mmol/L Carbon Dioxide Level 26 mmol/L Anion Gap 7.0 mmol/L Blood Urea Nitrogen 16 mg/dl Creatinine 1.14 mg/dl Est Creatinine Clear Calc Drug Dose 33.9 ml/min Estimated GFR () 53.0 Estimated GFR (Non- 45.7 BUN/Creatinine Ratio 14.0 Random Glucose 97 mg/dl Calcium Level 8.6 mg/dl Troponin I 0.049 ng/ml Assessment and Plan This is a 77-year-old female past medical history of chronic systolic heart failure, hypertension, CAD (s/p stents), severe aortic stenosis, paroxysmal atrial tachycardia and other medical problems listed below who presents with worsening shortness of breath over the past 4 days Acute on Chronic Systolic CHF * presented with SUMNER, SOB, cough * presented with a CXR with pleural effusions/pulmonary edema * continue IV diuretics * will need maintenance diuretics * repeat echo pending Bilateral Lobe PNA * bibasilar opacities noted on CXR * leukocytosis resolved * continue Clindamycin for 5 days * cultures pending Elevated Troponin Demand Ischemia Hx. of CAD * troponin mildly elevated * likely secondary to infection and CHF exacerbation * hx. of CABG; continue aspirin, b-pancho * unsure why patient is not on a statin - will need to discuss Anemia * possibly iron deficiency vs. blood loss * stool occult positive * will need outpatient colonoscopy HTN * continue Cozaar and b-pancho Paroxysmal Atrial Tachycardia * cont. b-pancho Hypothyroidism * continue home medications DVT ppx * SCDs FULL CODE
[2018-01-09] MEDS: METOPROLOL SUCC 25MG EXT REL TAB PO SCH (20:50)
[2018-01-10] MEDS: TRAMADOL HCL 50 MG TAB PO PRN (00:13)
[2018-01-10 04:51] VITALS: BP 106/62; PULSE 70; TEMP 36.4; O2SAT 94
[2018-01-10] MEDS: ARMOUR THYROID 30 MG TAB PO SCH (05:55)
[2018-01-10] MEDS: CLINDAMYCIN HCL 150 MG CAP PO SCH ×4 (05:55→23:34)
[2018-01-10 06:29] LABS: BASO % 0.4 %; BASO ABS # 0.04 K/uL (0-0.2); EOS % 4.4 %; EOS ABS # 0.41 K/uL (0-0.5); HEMATOCRIT 29.4 % (37-47); HEMOGLOBIN 9.7 g/dL (12.0-16.0); IG# 0.03 K/uL (0.00-0.02); LYMPH % 25.5 %; LYMPH ABS # 2.38 K/uL (1.2-3.4); MEAN CELL VOLUME 79.5 fL (80-100); MEAN CORPUSCULAR HEMOGLOBIN 26.2 pg (25-34); MEAN PLATELET VOLUME 8.9 fL (7.4-10.4); MONO % 12.6 %; MONO ABS # 1.18 K/uL (0.11-0.59); NEUT % 56.8 %; NEUT ABS # 5.29 K/uL (1.4-6.5); PLATELET COUNT 331 K/uL (130-400); RED CELL DISTRIBUTION WIDTH CV 15.3 % (11.5-14.5); RED CELL DISTRIBUTION WIDTH SD 44.2 fL (36.4-46.3); WHITE BLOOD COUNT 9.33 K/uL (4.8-10.8)
[2018-01-10 06:54] LABS: CALCIUM 8.5 mg/dl (8.5-10.1); CREATININE 1.29 mg/dl (0.60-1.20)
[2018-01-10 08:04] VITALS: BP 96/57; PULSE 73; TEMP 36.8; O2SAT 93
[2018-01-10] MEDS: LOSARTAN POTASSIUM 25 MG TAB PO SCH (08:06)
[2018-01-10] MEDS: GUAIFENESIN 600 MG TABCR PO SCH ×2 (08:30→20:38)
[2018-01-10] MEDS: FERROUS SULFATE 325 MG TAB PO SCH (08:30)
[2018-01-10] MEDS: MULTIVITAMIN TAB PO SCH (08:30)
[2018-01-10] MEDS: LACTOBACILLUS ACIDOPHILUS (FLORANEX) TAB PO SCH ×3 (08:30→17:24)
[2018-01-10] MEDS: PANTOprazole SOD 40 MG TAB PO SCH ×2 (08:30→20:38)
[2018-01-10] MEDS: ASPIRIN 81 MG ECTAB PO SCH (08:31)
[2018-01-10] MEDS ORDERED: FUROSEMIDE 20 MG TAB PO ONE (11:27)
--- NOTE | 2018-01-10 11:37 | Cardiology Follow-Up ---
Subjective General Date of Service: Jan 10, 2018. Pt evaluation today including: conversation w/ patient, physical exam, chart review, lab review, review of studies, review of inpatient medication list History of Present Illness The patient is a 77 year old female seen in follow-up. Respiratory status improved since admission. Denies chest discomfort. Reports dyspnea on exertion. No orthopnea or paroxysmal nocturnal dyspnea. Complains of nonproductive cough. Creatinine mildly elevated. Allergies Coded Allergies: Clopidogrel (Verified Allergy, Mild, RASH, 01/08/18) n/a Penicillins (Verified Allergy, Mild, RASH, 01/08/18) Tetracycline (Verified Allergy, Mild, UNKNOWN, 01/08/18) Ranitidine (Verified Adverse Reaction, Intermediate, PALPITATIONS, 01/08/18 ) Lisinopril (Verified Adverse Reaction, Unknown, DRY COUGH, 01/08/18) Social History Smoking Status: Never Smoker Hx Tobacco Use In Past Year?: No Hx Alcohol Use - Type And Amou: No Hx Substance Use - Type And Am: No Problem List Medical Problems: (1) Aphasia Status: Acute (2) CHF (congestive heart failure) Status: Acute (3) Dyspnea Status: Acute (4) Elevated troponin Status: Acute (5) Fall Status: Acute (6) Flu-like symptoms Status: Acute (7) Left knee DJD Status: Acute (8) Left knee pain Status: Acute Review of Systems Respiratory: + cough, + dyspnea on exertion, No sputum, No wheezing, No shortness of breath, No dyspnea at rest, No hemoptysis Cardiac: No chest pain, No orthopnea, No PND, No edema, No claudication, No palpitations Physical Exam Vital Signs Last Vital Signs Documentation Date Time Temp Pulse Resp B/P (MAP) Pulse Ox O2 Delivery O2 Flow Rate FiO2 01/10/18 08:30 Room Air 01/10/18 08:04 36.8 73 20 96/57 (40) 93 Physical Exam Constitutional: General Apperance: well-nourished Level of Distress: NAD Head: normocephalic, atraumatic Neck: supple, trachea midline Lungs: Auscultation: rales/crackles on the left, rales/crackles on the right Cardiovascular: Heart Auscultation: RRR, normal S1, normal S2, II/ CONSUELO Peripheral Pulses: Radial Pulse: normal on the left, normal on the right Abdomen: Inspection & Palpation: soft, non-distended, no tenderness, guarding & rebound Extremities: no cyanosis, no edema, no clubbing, no ulcers Neurologic: Gait & Station: pertinent finding (No focal motor deficit) Cranial Nerves: grossly intact Assessment and Plan Assessment and Plan Final impression: 1. Community-acquired pneumonia 2. Acute on chronic HF exacerbation secondary to diastolic dysfunction, mild systolic dysfunction, moderate to severe aortic stenosis. -Improved with intravenous diuretic therapy, creatinine trending upward this a.m. 3. Mild troponin elevation secondary to demand ischemia in the setting of community-acquired pneumonia, and acute decompensated heart failure. 4. Moderate to severe per echo 10/2017 5. Chronic coronary artery disease with history of LAD stent 2012, RCA stent 2015 and recent dobutamine stress echo negative for inducible ischemia 10/2017. 6. Anemia - to see hematology as outpatient PLAN/recommendations: Discontinue intravenous furosemide. Patient will begin oral furosemide 20 mg daily. Repeat basic metabolic panel in a.m. Continue other cardiovascular medications as previously ordered. Antibiotics as per internal medicine. Tentative plan for discharge in 24-48 hours. Laboratory Results Last 24 Hours Test 01/10/18 06:19 White Blood Count 9.33 K/uL Red Blood Count 3.70 M/uL Hemoglobin 9.7 g/dL Hematocrit 29.4 % Mean Corpuscular Volume 79.5 fL Mean Corpuscular Hemoglobin 26.2 pg Mean Corpuscular Hemoglobin Concent 33.0 g/dl Platelet Count 331 K/uL Mean Platelet Volume 8.9 fL Neutrophils (%) (Auto) 56.8 % Lymphocytes (%) (Auto) 25.5 % Monocytes (%) (Auto) 12.6 % Eosinophils (%) (Auto) 4.4 % Basophils (%) (Auto) 0.4 % Neutrophils # (Auto) 5.29 K/uL Lymphocytes # (Auto) 2.38 K/uL Monocytes # (Auto) 1.18 K/uL Eosinophils # (Auto) 0.41 K/uL Basophils # (Auto) 0.04 K/uL RDW Standard Deviation 44.2 fL RDW Coefficient of Variation 15.3 % Immature Granulocyte % (Auto) 0.3 % Immature Granulocyte # (Auto) 0.03 K/uL Sodium Level 132 mmol/L Potassium Level 4.0 mmol/L Chloride Level 100 mmol/L Carbon Dioxide Level 25 mmol/L Anion Gap 8.0 mmol/L Blood Urea Nitrogen 21 mg/dl Creatinine 1.29 mg/dl Est Creatinine Clear Calc Drug Dose 29.2 ml/min Estimated GFR () 45.6 Estimated GFR (Non- 39.4 BUN/Creatinine Ratio 15.9 Random Glucose 108 mg/dl Calcium Level 8.5 mg/dl
[2018-01-10 12:16] VITALS: BP 101/60; PULSE 76; TEMP 36.8; O2SAT 96
--- NOTE | 2018-01-10 14:41 | Progress Note ---
Subjective Date of Service: Jan 10, 2018. Subjective Pt evaluation today including: conversation w/ patient, physical exam, lab review, review of studies, review of inpatient medication list Saw/examined the patient in room 280 She's doing well, productive cough persists No chest pain/palpitations c/o R lower extremity pain around the carmen area - which has been present prior to arrival. pain relieving creams usually work for this and she is requesting this. Problem List Medical Problems: (1) Aphasia Status: Acute (2) CHF (congestive heart failure) Status: Acute (3) Dyspnea Status: Acute (4) Elevated troponin Status: Acute (5) Fall Status: Acute (6) Flu-like symptoms Status: Acute (7) Left knee DJD Status: Acute (8) Left knee pain Status: Acute Review of Systems Constitutional: No fever, No chills Respiratory: + cough, + sputum, No shortness of breath Cardiac: No chest pain, No edema, No palpitations Abdomen: No pain, No nausea, No vomiting, No diarrhea Medications Current Inpatient Medications Medications (Trade) Dose Ordered Sig/Thelma Route Start Time Stop Time Status Last Admin Dose Admin Lactobacillus Acidophilus (Floranex Tab) 4 tab TIDM PO 01/09/18 08:00 02/08/18 07:59 01/10/18 12:02 4 TAB Pantoprazole Sodium (Protonix Tab) 40 mg BID PO 01/09/18 09:00 02/08/18 08:59 01/10/18 08:30 40 MG Acetaminophen (Tylenol Tab) 650 mg Q4H PRN PO 01/08/18 22:30 02/07/18 22:29 01/09/18 02:30 650 MG Nitroglycerin (Nitrostat Tab) 0.4 mg UD PRN SL 01/08/18 22:30 02/07/18 22:29 Tramadol HCl (Ultram Tab) 25 mg Q6H PRN PO 01/08/18 22:30 02/07/18 22:29 01/10/18 00:13 25 MG Prochlorperazine Edisylate 5 mg/ Syringe 5 ml @ 5 mls/min Q6H PRN IV 01/08/18 22:30 02/07/18 22:29 Miscellaneous Information (Pharmacy Consult) 1 ea UD PRN N/A 01/09/18 09:00 02/08/18 08:59 Guaifenesin (Mucinex Contr Rel Tab) 600 mg Q12 PO 01/09/18 09:00 02/08/18 08:59 01/10/18 08:30 600 MG Hydromorphone HCl (Dilaudid Inj) 0.5 mg Q3H PRN IV 01/08/18 22:30 01/22/18 22:29 Aspirin (Ecotrin Tab) 81 mg DAILY PO 01/09/18 09:00 02/08/18 08:59 01/10/18 08:31 81 MG Ferrous Sulfate (Feosol Tab) 325 mg DAILY PO 01/09/18 09:00 02/08/18 08:59 01/10/18 08:30 325 MG Losartan Potassium (coZAAR TAB) 12.5 mg QAM PO 01/09/18 09:00 02/08/18 08:59 01/09/18 08:01 12.5 MG Metoprolol Succinate (Toprol Xl Tab) 12.5 mg HS PO 01/09/18 21:00 02/08/18 20:59 01/09/18 20:50 12.5 MG Multivitamins (Multivitamin Tab) 1 tab QAM PO 01/09/18 09:00 02/08/18 08:59 01/10/18 08:30 1 TAB Thyroid ([place] Thyroid Tab) 30 mg SuTuThSa@0630 PO 01/10/18 06:30 02/09/18 06:29 01/10/18 05:55 30 MG Thyroid ([place] Thyroid Tab) 60 mg MoWeFr@0630 PO 01/09/18 06:30 02/08/18 06:29 01/09/18 06:01 60 MG Ipratropium [place] (Atrovent 0.02% 0.5MG/2.5ML Neb) 0.5 mg Q4H PRN INH 01/08/18 22:45 02/07/18 22:44 Levalbuterol (Xopenex 1.25MG/ 0.5ML Neb) 1.25 mg Q4H PRN INH 01/08/18 22:45 02/07/18 22:44 Clindamycin HCl (Cleocin Cap) 300 mg Q6 PO 01/09/18 06:00 01/16/18 05:59 01/10/18 12:02 300 MG Trolamine Salicylate (Myoflex Cream) 1 appln BID PRN EXT 01/09/18 09:45 02/08/18 09:44 01/09/18 13:38 1 APPLN Furosemide (Lasix Tab) 20 mg QAM PO 01/11/18 09:00 02/10/18 08:59 Objective Vital Signs Date Time Temp Pulse Resp B/P (MAP) Pulse Ox O2 Delivery O2 Flow Rate FiO2 01/10/18 12:16 36.8 76 20 101/60 (74) 96 Room Air 01/10/18 12:00 Room Air 01/10/18 08:30 Room Air 01/10/18 08:04 36.8 73 20 96/57 (70) 93 Room Air 01/10/18 04:51 36.4 70 16 106/62 (77) 94 Room Air 01/10/18 04:00 Room Air 01/09/18 23:59 Room Air 01/09/18 23:47 36.8 86 20 111/69 (83) 97 Room Air 01/09/18 20:00 96 Room Air 01/09/18 19:29 36.8 84 18 113/64 (80) 96 Room Air 01/09/18 16:00 95 Room Air 01/09/18 15:42 36.9 86 16 105/65 (78) 95 Room Air Physical Exam General Appearance: no apparent distress Respiratory/Chest: no respiratory distress, no accessory muscle use, + crackles Cardiovascular: regular rate, rhythm, no edema, no murmur Extremities: normal inspection, no pedal edema Neurologic/Psychiatric: no motor/sensory deficits, alert, normal mood/affect Laboratory Results Last 24 Hours Test 01/10/18 06:19 White Blood Count 9.33 K/uL Red Blood Count 3.70 M/uL Hemoglobin 9.7 g/dL Hematocrit 29.4 % Mean Corpuscular Volume 79.5 fL Mean Corpuscular Hemoglobin 26.2 pg Mean Corpuscular Hemoglobin Concent 33.0 g/dl Platelet Count 331 K/uL Mean Platelet Volume 8.9 fL Neutrophils (%) (Auto) 56.8 % Lymphocytes (%) (Auto) 25.5 % Monocytes (%) (Auto) 12.6 % Eosinophils (%) (Auto) 4.4 % Basophils (%) (Auto) 0.4 % Neutrophils # (Auto) 5.29 K/uL Lymphocytes # (Auto) 2.38 K/uL Monocytes # (Auto) 1.18 K/uL Eosinophils # (Auto) 0.41 K/uL Basophils # (Auto) 0.04 K/uL RDW Standard Deviation 44.2 fL RDW Coefficient of Variation 15.3 % Immature Granulocyte % (Auto) 0.3 % Immature Granulocyte # (Auto) 0.03 K/uL Sodium Level 132 mmol/L Potassium Level 4.0 mmol/L Chloride Level 100 mmol/L Carbon Dioxide Level 25 mmol/L Anion Gap 8.0 mmol/L Blood Urea Nitrogen 21 mg/dl Creatinine 1.29 mg/dl Est Creatinine Clear Calc Drug Dose 29.2 ml/min Estimated GFR () 45.6 Estimated GFR (Non- 39.4 BUN/Creatinine Ratio 15.9 Random Glucose 108 mg/dl Calcium Level 8.5 mg/dl Assessment and Plan This is a 77-year-old female past medical history of chronic systolic heart failure, hypertension, CAD (s/p stents), severe aortic stenosis, paroxysmal atrial tachycardia and other medical problems listed below who presents with worsening shortness of breath over the past 4 days Acute on Chronic Systolic CHF 01/10 * appreciate cardiology input * stop IV Lasix * start oral Lasix 20mg and monitor BMP 01/09 * presented with SUMNER, SOB, cough * presented with a CXR with pleural effusions/pulmonary edema * continue IV diuretics * will need maintenance diuretics * repeat echo pending Bilateral Lobe PNA * bibasilar opacities noted on CXR * leukocytosis resolved * continue Clindamycin for 5 days * cultures pending Elevated Troponin Demand Ischemia Hx. of CAD * troponin mildly elevated * likely secondary to infection and CHF exacerbation * hx. of CABG; continue aspirin, b-pancho * unsure why patient is not on a statin - will need to discuss Anemia * possibly iron deficiency vs. blood loss * stool occult positive * will need outpatient colonoscopy HTN * continue Cozaar and b-pancho Paroxysmal Atrial Tachycardia * cont. b-pancho Hypothyroidism * continue home medications DVT ppx * SCDs FULL CODE
[2018-01-10 15:10] VITALS: BP 110/69; PULSE 83; TEMP 36.8; O2SAT 96
[2018-01-10 19:02] VITALS: BP 106/63; PULSE 84; TEMP 36.4; O2SAT 95
[2018-01-10] MEDS: METOPROLOL SUCC 25MG EXT REL TAB PO SCH (20:39)
[2018-01-10] MEDS: ACETAMINOPHEN 325 MG TAB PO PRN (20:41)
[2018-01-10 23:46] VITALS: BP 101/63; PULSE 85; TEMP 36.8; O2SAT 94
[2018-01-11 03:00] VITALS: BP 111/69; PULSE 74; TEMP 36.7; O2SAT 95
[2018-01-11 05:42] LABS: HEMATOCRIT 29.4 % (37-47); HEMOGLOBIN 9.6 g/dL (12.0-16.0); MEAN CELL VOLUME 80.3 fL (80-100); MEAN CORPUSCULAR HEMOGLOBIN 26.2 pg (25-34); MEAN CORPUSCULAR HGB CONC 32.7 g/dl (32-36); MEAN PLATELET VOLUME 9.5 fL (7.4-10.4); PLATELET COUNT 337 K/uL (130-400); RED CELL DISTRIBUTION WIDTH CV 15.2 % (11.5-14.5); RED CELL DISTRIBUTION WIDTH SD 43.7 fL (36.4-46.3); WHITE BLOOD COUNT 9.32 K/uL (4.8-10.8)
[2018-01-11] MEDS: ARMOUR THYROID 30 MG TAB PO SCH (05:59)
[2018-01-11 06:07] LABS: CALCIUM 8.4 mg/dl (8.5-10.1); CREATININE 1.33 mg/dl (0.60-1.20); POTASSIUM 3.4 mmol/L (3.5-5.1)
[2018-01-11 07:19] VITALS: BP 101/55; PULSE 79; TEMP 36.7; O2SAT 96
[2018-01-11] MEDS ORDERED: POTASSIUM CHLORIDE 10 MEQ TABCR PO STA (07:27)
[2018-01-11] MEDS: ASPIRIN 81 MG ECTAB PO SCH (08:13)
[2018-01-11] MEDS: CLINDAMYCIN HCL 150 MG CAP PO SCH ×2 (08:13→12:29)
[2018-01-11] MEDS: LACTOBACILLUS ACIDOPHILUS (FLORANEX) TAB PO SCH ×2 (08:14→12:29)
[2018-01-11] MEDS: ACETAMINOPHEN 325 MG TAB PO PRN (08:14)
[2018-01-11] MEDS: MULTIVITAMIN TAB PO SCH (08:14)
[2018-01-11] MEDS: LOSARTAN POTASSIUM 25 MG TAB PO SCH (08:14)
[2018-01-11] MEDS: GUAIFENESIN 600 MG TABCR PO SCH (08:14)
[2018-01-11] MEDS: PANTOprazole SOD 40 MG TAB PO SCH (08:14)
[2018-01-11] MEDS: FERROUS SULFATE 325 MG TAB PO SCH (08:14)
[2018-01-11] MEDS ORDERED: FUROSEMIDE 20 MG TAB PO SCH (09:00)
[2018-01-11 11:35] VITALS: BP 99/56; PULSE 76; TEMP 36.8; O2SAT 96
--- NOTE | 2018-01-11 12:27 | Cardiology Follow-Up ---
Subjective General Date of Service: Jan 11, 2018. Pt evaluation today including: conversation w/ patient, physical exam, chart review, lab review, review of studies, conversation w/ safety and health consultant History of Present Illness The patient is a 77 year old female seen in follow-up. Patient feeling well from a cardiovascular standpoint. Complains of chronic left knee discomfort. No chest pain or shortness of breath. No lower extremity edema, orthopnea, PND Allergies Coded Allergies: Clopidogrel (Verified Allergy, Mild, RASH, 01/08/18) n/a Penicillins (Verified Allergy, Mild, RASH, 01/08/18) Tetracycline (Verified Allergy, Mild, UNKNOWN, 01/08/18) Ranitidine (Verified Adverse Reaction, Intermediate, PALPITATIONS, 01/08/18 ) Lisinopril (Verified Adverse Reaction, Unknown, DRY COUGH, 01/08/18) Social History Smoking Status: Never Smoker Hx Tobacco Use In Past Year?: No Hx Alcohol Use - Type And Amou: No Hx Substance Use - Type And Am: No Problem List Medical Problems: (1) Aphasia Status: Acute (2) CHF (congestive heart failure) Status: Acute (3) Dyspnea Status: Acute (4) Elevated troponin Status: Acute (5) Fall Status: Acute (6) Flu-like symptoms Status: Acute (7) Left knee DJD Status: Acute (8) Left knee pain Status: Acute Review of Systems Respiratory: + cough, + dyspnea on exertion, No sputum, No wheezing, No shortness of breath, No dyspnea at rest Cardiac: No chest pain, No orthopnea, No PND, No edema, No claudication, No palpitations Physical Exam Vital Signs Last Vital Signs Documentation Date Time Temp Pulse Resp B/P (MAP) Pulse Ox O2 Delivery O2 Flow Rate FiO2 01/11/18 11:35 36.8 76 18 99/56 (70) 96 Room Air Physical Exam Constitutional: General Apperance: well-nourished Level of Distress: NAD Head: normocephalic, atraumatic Neck: supple, trachea midline Lungs: Auscultation: rales/crackles on the right Cardiovascular: Heart Auscultation: RRR, normal S1, normal S2, II/ CONSUELO Peripheral Pulses: Radial Pulse: normal on the left, normal on the right Abdomen: Inspection & Palpation: soft, non-distended, no tenderness, guarding & rebound Extremities: no cyanosis, no edema, no clubbing, no ulcers Neurologic: Gait & Station: pertinent finding (No focal motor deficit) Cranial Nerves: grossly intact Assessment and Plan Assessment and Plan Final impression: 1. Community-acquired pneumonia 2. Acute on chronic HF exacerbation secondary to diastolic dysfunction, mild systolic dysfunction, moderate to severe aortic stenosis. -Improved with intravenous diuretic therapy, creatinine trending upward slightly today 3. Mild troponin elevation secondary to demand ischemia in the setting of community-acquired pneumonia, and acute decompensated heart failure. 4. Moderate to severe per echo 10/2017 5. Chronic coronary artery disease with history of LAD stent 2012, RCA stent 2015 and recent dobutamine stress echo negative for inducible ischemia 10/2017. 6. Anemia - to see hematology as outpatient PLAN/recommendations: Recommend furosemide 20mg daily on . Continue other cardiovascular medications as previously ordered. Antibiotics as per internal medicine. Outpatient cardiology follow-up in 7-14 days. Laboratory Results Last 24 Hours Test 01/11/18 05:15 White Blood Count 9.32 K/uL Red Blood Count 3.66 M/uL Hemoglobin 9.6 g/dL Hematocrit 29.4 % Mean Corpuscular Volume 80.3 fL Mean Corpuscular Hemoglobin 26.2 pg Mean Corpuscular Hemoglobin Concent 32.7 g/dl RDW Standard Deviation 43.7 fL RDW Coefficient of Variation 15.2 % Platelet Count 337 K/uL Mean Platelet Volume 9.5 fL Sodium Level 135 mmol/L Potassium Level 3.4 mmol/L Chloride Level 102 mmol/L Carbon Dioxide Level 26 mmol/L Anion Gap 7.0 mmol/L Blood Urea Nitrogen 24 mg/dl Creatinine 1.33 mg/dl Est Creatinine Clear Calc Drug Dose 28.3 ml/min Estimated GFR () 44.0 Estimated GFR (Non- 37.9 BUN/Creatinine Ratio 18.3 Random Glucose 129 mg/dl Calcium Level 8.4 mg/dl
--- NOTE | 2018-01-11 13:09 | Progress Note ---
Subjective Date of Service: Jan 11, 2018. Subjective Pt evaluation today including: conversation w/ patient, physical exam, lab review, review of studies, conversation w/ netsuite consultant, review of inpatient medication list Saw/examined the patient in room 280 She's doing well, no issues breathing, no cough/shortness of breath Eager to go home. Problem List Medical Problems: (1) Aphasia Status: Acute (2) CHF (congestive heart failure) Status: Acute (3) Dyspnea Status: Acute (4) Elevated troponin Status: Acute (5) Fall Status: Acute (6) Flu-like symptoms Status: Acute (7) Left knee DJD Status: Acute (8) Left knee pain Status: Acute Review of Systems Constitutional: No fever, No chills Respiratory: No cough, No sputum, No wheezing, No shortness of breath, No dyspnea on exertion, No dyspnea at rest, No hemoptysis Cardiac: No chest pain, No edema, No palpitations Medications Current Inpatient Medications Medications (Trade) Dose Ordered Sig/Thelma Route Start Time Stop Time Status Last Admin Dose Admin Lactobacillus Acidophilus (Floranex Tab) 4 tab TIDM PO 01/09/18 08:00 02/08/18 07:59 01/11/18 12:29 4 TAB Pantoprazole Sodium (Protonix Tab) 40 mg BID PO 01/09/18 09:00 02/08/18 08:59 01/11/18 08:14 40 MG Acetaminophen (Tylenol Tab) 650 mg Q4H PRN PO 01/08/18 22:30 02/07/18 22:29 01/11/18 08:14 650 MG Nitroglycerin (Nitrostat Tab) 0.4 mg UD PRN SL 01/08/18 22:30 02/07/18 22:29 Tramadol HCl (Ultram Tab) 25 mg Q6H PRN PO 01/08/18 22:30 02/07/18 22:29 01/10/18 00:13 25 MG Prochlorperazine Edisylate 5 mg/ Syringe 5 ml @ 5 mls/min Q6H PRN IV 01/08/18 22:30 02/07/18 22:29 Miscellaneous Information (Pharmacy Consult) 1 ea UD PRN N/A 01/09/18 09:00 02/08/18 08:59 Guaifenesin (Mucinex Contr Rel Tab) 600 mg Q12 PO 01/09/18 09:00 02/08/18 08:59 01/11/18 08:14 600 MG Hydromorphone HCl (Dilaudid Inj) 0.5 mg Q3H PRN IV 01/08/18 22:30 01/22/18 22:29 Aspirin (Ecotrin Tab) 81 mg DAILY PO 01/09/18 09:00 02/08/18 08:59 01/11/18 08:13 81 MG Ferrous Sulfate (Feosol Tab) 325 mg DAILY PO 01/09/18 09:00 02/08/18 08:59 01/11/18 08:14 325 MG Losartan Potassium (coZAAR TAB) 12.5 mg QAM PO 01/09/18 09:00 02/08/18 08:59 01/11/18 08:14 12.5 MG Metoprolol Succinate (Toprol Xl Tab) 12.5 mg HS PO 01/09/18 21:00 02/08/18 20:59 01/10/18 20:39 12.5 MG Multivitamins (Multivitamin Tab) 1 tab QAM PO 01/09/18 09:00 02/08/18 08:59 01/11/18 08:14 1 TAB Thyroid ([place] Thyroid Tab) 30 mg SuTuThSa@0630 PO 01/10/18 06:30 02/09/18 06:29 01/11/18 05:59 30 MG Thyroid ([place] Thyroid Tab) 60 mg MoWeFr@0630 PO 01/09/18 06:30 02/08/18 06:29 01/09/18 06:01 60 MG Ipratropium [place] (Atrovent 0.02% 0.5MG/2.5ML Neb) 0.5 mg Q4H PRN INH 01/08/18 22:45 02/07/18 22:44 Levalbuterol (Xopenex 1.25MG/ 0.5ML Neb) 1.25 mg Q4H PRN INH 01/08/18 22:45 02/07/18 22:44 Clindamycin HCl (Cleocin Cap) 300 mg Q6 PO 01/09/18 06:00 01/16/18 05:59 01/11/18 12:29 300 MG Trolamine Salicylate (Myoflex Cream) 1 appln BID PRN EXT 01/09/18 09:45 02/08/18 09:44 01/09/18 13:38 1 APPLN Objective Vital Signs Date Time Temp Pulse Resp B/P (MAP) Pulse Ox O2 Delivery O2 Flow Rate FiO2 01/11/18 12:00 Room Air 01/11/18 11:35 36.8 76 18 99/56 (70) 96 Room Air 01/11/18 08:15 Room Air 01/11/18 07:19 36.7 79 18 101/55 (70) 96 Room Air 01/11/18 04:00 Room Air 01/11/18 03:00 36.7 74 18 111/69 (83) 95 Room Air 01/11/18 00:00 Room Air 01/10/18 23:46 36.8 85 20 101/63 (76) 94 Room Air 01/10/18 20:00 Room Air 01/10/18 19:02 36.4 84 20 106/63 (77) 95 Room Air 01/10/18 16:00 Room Air 01/10/18 15:10 36.8 83 20 110/69 (83) 96 Physical Exam General Appearance: no apparent distress Respiratory/Chest: chest non-tender, lungs clear, normal breath sounds, no respiratory distress, no accessory muscle use Cardiovascular: regular rate, rhythm, no edema, no murmur Extremities: normal inspection, no pedal edema Laboratory Results Last 24 Hours Test 01/11/18 05:15 White Blood Count 9.32 K/uL Red Blood Count 3.66 M/uL Hemoglobin 9.6 g/dL Hematocrit 29.4 % Mean Corpuscular Volume 80.3 fL Mean Corpuscular Hemoglobin 26.2 pg Mean Corpuscular Hemoglobin Concent 32.7 g/dl RDW Standard Deviation 43.7 fL RDW Coefficient of Variation 15.2 % Platelet Count 337 K/uL Mean Platelet Volume 9.5 fL Sodium Level 135 mmol/L Potassium Level 3.4 mmol/L Chloride Level 102 mmol/L Carbon Dioxide Level 26 mmol/L Anion Gap 7.0 mmol/L Blood Urea Nitrogen 24 mg/dl Creatinine 1.33 mg/dl Est Creatinine Clear Calc Drug Dose 28.3 ml/min Estimated GFR () 44.0 Estimated GFR (Non- 37.9 BUN/Creatinine Ratio 18.3 Random Glucose 129 mg/dl Calcium Level 8.4 mg/dl Assessment and Plan This is a 77-year-old female past medical history of chronic systolic heart failure, hypertension, CAD (s/p stents), severe aortic stenosis, paroxysmal atrial tachycardia and other medical problems listed below who presents with worsening shortness of breath over the past 4 days Acute on Chronic Systolic CHF 01/11 * Lasix M-W-F 20mg * will d/c with Clindamycin for pneumonia * all other medications to stay the same * outpatient PCP and cardiology follow-up * outpatient BMP to monitor electrolytes and kidney function 01/10 * appreciate cardiology input * stop IV Lasix * start oral Lasix 20mg and monitor BMP 01/09 * presented with SUMNER, SOB, cough * presented with a CXR with pleural effusions/pulmonary edema * continue IV diuretics * will need maintenance diuretics * repeat echo pending Bilateral Lobe PNA * bibasilar opacities noted on CXR * leukocytosis resolved * continue Clindamycin for 5 days * cultures pending Elevated Troponin Demand Ischemia Hx. of CAD * troponin mildly elevated * likely secondary to infection and CHF exacerbation * hx. of CABG; continue aspirin, b-pancho * unsure why patient is not on a statin - will need to discuss Anemia * possibly iron deficiency vs. blood loss * stool occult positive * will need outpatient colonoscopy HTN * continue Cozaar and b-pancho Paroxysmal Atrial Tachycardia * cont. b-pancho Hypothyroidism * continue home medications DVT ppx * SCDs FULL CODE
[2018-01-11] MEDS ORDERED: LCTX PO (13:11)
[2018-01-11] MEDS ORDERED: FURO20TA PO (13:11)
[2018-01-11] MEDS ORDERED: CLC150 PO (13:11)
--- NOTE | 2018-01-11 13:13 | Discharge Instructions ---
Discharge Instructions Date of Service Jan 11, 2018. Admission Reason for Admission: Pneumonia Discharge Discharge Diagnosis / Problem: Pneumonia, fluid overload Discharge Goals Goal(s): Decrease discomfort, Improve function, Diagnostic testing, Therapeutic intervention Activity Recommendations Activity Limitations: resume your previous activity . Instructions / Follow-Up Instructions / Follow-Up Please follow-up with Dr. Nation - you will get a phone call with a date and time Please follow-up with Dr. Fletcher - you will get a phone call with a date and time * You will be on clindamycin (antibiotic) - take 300mg every 6 hours for the next 2 days * You will be prescribed Lasix - take 20mg on Mondays, Wednesdays, and Fridays * Your primary care should recheck your blood work (kidney function and electrolytes) next week Current Hospital Diet Patient's current hospital diet: AHA Diet (Heart Healthy) Discharge Diet Recommended Diet: AHA Diet (Heart Healthy) Pending Studies Studies pending at discharge: no Laboratory Results Hemoglobin A1c Test 10/22/17 14:30 Range/Units Estimated Average Glucose 126 mg/dl Hemoglobin A1c 6.0 H 4.5-5.6 % Medical Emergencies . Who to Call and When: Medical Emergencies: If at any time you feel your situation is an emergency, please call 911 immediately. . Non-Emergent Contact Non-Emergency issues call your: Primary Care Provider, [employer] Testing Technician . . "Provider Documentation" section prepared by Melody Goldsmith. .
--- NOTE | 2018-01-11 13:15 | Discharge Summary ---
Discharge Summary Date of Service Jan 11, 2018. Discharge Summary Admission Date: Jan 08, 2018 at 21:09 Discharge Date: Jan 11, 2018 Discharge Disposition: Home Principal Diagnosis: Community Acquired Pneumonia Acute on Chronic Systolic CHF Elevated Troponin Demand Ischemia Hx. of CAD Medication Reconciliation New Medications: Furosemide (Lasix) 20 Mg Tab 20 MG PO MWF for 30 Days, #10 TABS Clindamycin HCl (Clindamycin HCl) 150 Mg Cap 300 MG PO Q6 for 2 Days, #16 CAP Lactobacillus Acidophilus (Floranex) 1 Tab Tab 4 TAB PO TIDM for 5 Days, #15 TAB Continued Medications: Apoaequorin (Prevagen) 10 Mg Cap 5 MG PO PRN PRN for MEMORY Aspirin (Aspirin Ec) 81 Mg Tab 81 MG PO DAILY Cholecalciferol (Vitamin D) 2,000 Unit Tab 2000 UNITS PO QAM Ferrous Sulfate (Ferrous Sulfate) 325 Mg Tab 1 TAB PEG BID Losartan Potassium (Cozaar) 25 Mg Tab 12.5 MG PO QAM, TAB Metoprolol Succ (Toprol Xl) (Toprol-Xl) 25 Mg Tabcr 12.5 MG PO HS, TAB Multivitamin (Multivitamin) Tab 1 TAB PO QAM, 0 Refills Nitroglycerin (Nitrostat) 0.4 Mg Tab 0.4 MG SL UD PRN for Chest Pain, BTL PLACE ONE TABLET UNDER THE TONGUE EVERY 5 MINUTES FOR UP TO 3 DOSES OVER 15 MINUTES IF NEEDED FOR CHEST PAIN. Probiotic Product (Probiotic) 1 Cap Cap 1 CAP QPM Thyroid ([place] Thyroid) 30 Mg Tab 30 MG PO 4XWK TAKE 30 MG EVERY FRIDAY,FRIDAY,FRIDAY AND FRIDAY. Thyroid ([place] Thyroid) 30 Mg Tab 60 MG PO 3XWK TAKE 60 MG EVERY FRIDAY,FRIDAY AND FRIDAY. [Magnesium] () 1 TAB PO QAM Admission Information HPI (per Admitting provider): This is a 77-year-old female past medical history of systolic heart failure, hypertension, CAD (s/p stents), severe aortic stenosis, paroxysmal atrial tachycardia and other medical problems listed below who presents with worsening shortness of breath over the past 4 days. Patient has felt congested for the past month, endorsing nasal congestion, ear fullness and a non-productive cough but denies any fever, chills or sore throat. Over the weekend, patient began to experience dyspnea on exertion. At baseline, she is able to climb the stairs of her home without a problem, but over the past 4 days she has been crawling up the stairs due to shortness of breath. Denies recent weight gain or LE swelling. Had a knee replacement [address] Orellana. Endorses pleuritic pain with cough, L knee/calf pain, nausea and decreased appetite. Denies fever, chills, lightheadedness, headache, abdominal pain, vomiting, bowel or bladder changes, weakness or numbness in extremities. Was evaluated by PCP earlier today and had a chest x-ray performed which showed bilateral lower lobe pneumonia. Patient was sent to the ED for further evaluation. Physical Exam (per Admitting): General Appearance: WD/WN, no apparent distress, + pertinent finding ( Sitting upright, breathing comfortably on room air ) Head: normocephalic, atraumatic Eyes: normal inspection, PERRL, sclerae normal ENT: normal ENT inspection, hearing grossly normal, pharynx normal (moist mucous membranes ) Neck: supple, thyroid normal, trachea midline Respiratory/Chest: chest non-tender, no respiratory distress, no accessory muscle use, + crackles (Bibasilar ) Cardiovascular: regular rate, rhythm, normal peripheral pulses, + systolic murmur Abdomen/GI: non tender, soft, no organomegaly Back: normal inspection Extremities/Musculoskelatal: normal inspection, no pedal edema, + calf tenderness (left ), + pertinent finding ( L knee with well-healing vertical incision) Neurologic/Psych: no motor/sensory deficits, alert, normal mood/affect, oriented x 3 Skin: normal color, warm/dry, no rash Hospital Course This is a 77-year-old female past medical history of chronic systolic heart failure, hypertension, CAD (s/p stents), severe aortic stenosis, paroxysmal atrial tachycardia and other medical problems listed below who presents with worsening shortness of breath over the past 4 days Acute on Chronic Systolic CHF 01/11 * Lasix M-W-F 20mg * will d/c with Clindamycin for pneumonia * all other medications to stay the same * outpatient PCP and cardiology follow-up * outpatient BMP to monitor electrolytes and kidney function 01/10 * appreciate cardiology input * stop IV Lasix * start oral Lasix 20mg and monitor BMP 01/09 * presented with SUMNER, SOB, cough * presented with a CXR with pleural effusions/pulmonary edema * continue IV diuretics * will need maintenance diuretics * repeat echo pending Bilateral Lobe PNA * bibasilar opacities noted on CXR * leukocytosis resolved * continue Clindamycin for 5 days * cultures pending Elevated Troponin Demand Ischemia Hx. of CAD * troponin mildly elevated * likely secondary to infection and CHF exacerbation * hx. of CABG; continue aspirin, b-pancho * unsure why patient is not on a statin - will need to discuss Anemia * possibly iron deficiency vs. blood loss * stool occult positive * will need outpatient colonoscopy HTN * continue Cozaar and b-pancho Paroxysmal Atrial Tachycardia * cont. b-pancho Hypothyroidism * continue home medications DVT ppx * SCDs FULL CODE Total time spent on discharge = 40 minutes This includes examination of the patient, discharge planning, medication reconciliation, and communication with other providers. Discharge Instructions Please follow-up with Dr. Nation - you will get a phone call with a date and time Please follow-up with Dr. Fletcher - you will get a phone call with a date and time * You will be on clindamycin (antibiotic) - take 300mg every 6 hours for the next 2 days * You will be prescribed Lasix - take 20mg on Mondays, Wednesdays, and Fridays * Your primary care should recheck your blood work (kidney function and electrolytes) next week
[2018-01-11 13:27] VITALS: BP 99/56; PULSE 76; TEMP 36.8; O2SAT 96
[2018-01-11 14:52] VITALS: BP 109/65; PULSE 74; TEMP 36.7; O2SAT 94
== END 2018-01-11 15:58 | disposition home health service (06) | DRG 291 ==
LOC: C.EDB 17:11 → C.EDINP 21:09 → ENRESERV 22:21 → C.MED 01-09 01:24
PROVIDERS: ADMIT Family Medicine; ATTEND Family Medicine
DX: I13.0 Hypertensive heart and chronic kidney disease with heart failure and stage 1 through stage 4 chronic kidney disease, or unspecified chronic kidney disease (principal); I50.23 Acute on chronic systolic (congestive) heart failure; J18.1 Lobar pneumonia, unspecified organism; I47.1 Supraventricular tachycardia; K92.2 Gastrointestinal hemorrhage, unspecified; D62 Acute posthemorrhagic anemia; I24.8 Other forms of acute ischemic heart disease; D50.9 Iron deficiency anemia, unspecified; M79.662 Pain in left lower leg; I25.5 Ischemic cardiomyopathy; I35.0 Nonrheumatic aortic (valve) stenosis; N18.3 Chronic kidney disease, stage 3 (moderate); E03.9 Hypothyroidism, unspecified; E78.5 Hyperlipidemia, unspecified; I25.2 Old myocardial infarction; Z86.79 Personal history of other diseases of the circulatory system; Z95.5 Presence of coronary angioplasty implant and graft; Z96.652 Presence of left artificial knee joint; Z79.82 Long term (current) use of aspirin; Z79.899 Other long term (current) drug therapy; Z88.0 Allergy status to penicillin; Z88.1 Allergy status to other antibiotic agents; Z88.8 Allergy status to other drugs, medicaments and biological substances; Z82.49 Family history of ischemic heart disease and other diseases of the circulatory system; Z83.3 Family history of diabetes mellitus; Z80.0 Family history of malignant neoplasm of digestive organs; Z80.51 Family history of malignant neoplasm of kidney; Z90.710 Acquired absence of both cervix and uterus; Z90.722 Acquired absence of ovaries, bilateral; Z90.79 Acquired absence of other genital organ(s); Z90.49 Acquired absence of other specified parts of digestive tract

== ENCOUNTER 2019-05-28 12:51 | Inpatient (IN) ==
[2019-05-28] MEDS ORDERED: ONDANSETRON INJ 2 MG/ML 2 ML VIAL IV STA (13:33)
--- NOTE | 2019-05-28 13:39 | Emergency Department Note ---
ED Visit Note I assisted Dr. Bermudez in the evaluation and management of this patient. Please see his note for complete visit details. Agata Ryan MD Resident Physician, PGY3 [facility] Medicine . Resident Activity Tracking Resident Involvement: Resident Care Provided Care Provided: Adult ED : GI bleed Qualifiers: GI bleed type/associated pathology: unspecified gastrointestinal hemorrhage type Qualified Code(s): K92.2 - Gastrointestinal hemorrhage, unspecified
[2019-05-28 14:16] LABS: Basophils # (auto) 0.03 K/uL (0-0.2); Basophils % (auto) 0.3 %; Eosinophils # (auto) 0.03 K/uL (0-0.5); Eosinophils % (auto) 0.3 %; Hematocrit (blood only) 36.2 % (37-47); Immature Granulocytes # (auto) 0.03 K/uL (0.00-0.02); Immature Granulocytes % (auto) 0.3 %; Lymphocytes # (auto) 1.58 K/uL (1.2-3.4); Lymphocytes % (auto) 14.5 %; Mean Corpuscular Hgb Conc 33.1 g/dL (32-36); Mean Corpuscular Volume 80.4 fL (80-100); Mean Platelet Volume 10.9 fL (7.4-10.4); Monocytes # (auto) 0.86 K/uL (0.11-0.59); Monocytes % (auto) 7.9 %; Neutrophils % (auto) 76.7 %; Platelet Count 217 K/uL (130-400); RDW Standard Deviation 43.8 fL (36.4-46.3); White Blood Count 10.93 K/uL (4.8-10.8)
[2019-05-28 14:28] LABS: Partial Thromboplastin Time 26.7 Seconds (21.0-31.0); Prothrombin Time 10.6 Seconds (9.0-12.0)
[2019-05-28 14:41] LABS: Alanine Aminotransferase 25 U/L (12-78); Albumin Level 3.5 gm/dl (3.4-5.0); Aspartate Aminotransferase 22 U/L (15-37); Blood Urea Nitrogen 27 mg/dl (7-18); Calcium 9.1 mg/dl (8.5-10.1); Carbon Dioxide 26 mmol/L (21-32); Chloride 104 mmol/L (98-107); Creatinine Clr Calc Pharmacy 28.1 ml/min; Est GFR (Non-African American) 41.4; Glucose 104 mg/dl (70-99); Potassium 4.3 mmol/L (3.5-5.1); Sodium 136 mmol/L (136-145)
[2019-05-28 14:45] LABS: Albumin Globulin Ratio 0.8 (0.9-2); Alkaline Phosphatase 108 U/L (45-117); Bilirubin,Total 0.3 mg/dl (0.2-1); Globulin 4.2 gm/dl (2.5-4.0); Total Protein 7.7 gm/dl (6.4-8.2); Troponin I < 0.015 ng/ml (0-0.045)
[2019-05-28] MEDS ORDERED: IOVERSOL 100ml IV PRN (16:01)
--- NOTE | 2019-05-28 16:22 | CT Scan Report ---
ABDOMEN AND PELVIS CT WITH IV CONTRAST CT DOSE: 731.37 mGycm HISTORY: Acute rectal bleeding BRBPR TECHNIQUE: Multiaxial CT images of the abdomen and pelvis were performed following the use of intrave nous contrast. A dose lowering technique was utilized adhering to the principles of ALARA. COMPARISON STUDY: None. FINDINGS: Bibasilar reticular opacities are suggestive of fibrosis. No pneumatosis or pneumoperitoneum. Coronar y arterial and aortic annular calcifications are noted. Imaged inferior cardiac chambers are mildly e nlarged. No pericardial effusion. Mural calcifications about the left ventricular apex are suggestive of prior myocardial infarction with mild mural fibrofatty changes. Gallbladder, spleen, pancreas and adrenal glands are unremarkable. Liver is also within normal limits. Motion degraded exam. Bilateral renal cysts measure up to 4.2 cm on the right. No renal or ureteral calculi or obstructive uropathy. Ureters are unremarkable. Partial distention of the bladder with mild wall thickening. Hysterectomy. No adnexal mass lesion. Extensive calcified plaque of the abdominal aorta and branch vessels without aneurysm. No adenopathy by CT size criteria. Moderate hiatal hernia. There is no small bowel obstruction. Colonic diverticulosis. Mild wall thicke karin with inflammatory stranding centered about a proximal sigmoid diverticulum, image 254 series 3. No evidence of perforation or drainable fluid collection. Terminal ileum and appendix appear normal. Soft tissues are unremarkable. Demineralized appearance of the bones. Degenerative changes of the spi ne, pelvis and hips. No acute fracture identified. IMPRESSION: 1. Colonic diverticulosis. There is mild inflammation centered about a proximal sigmoid diverticulum suggestive of subtle acute sigmoid diverticulitis. No evidence of perforation or drainable fluid sandy ection. 2. No bowel obstruction. 3. Moderate hiatal hernia. 4. Cardiomegaly. 5. Additional findings as above. Electronically signed by: Sb Liu M.D. 05/28/2019 4:21 PM
[2019-05-28] MEDS ORDERED: metroNIDAZOLE 250 MG TAB PO STA (16:58)
[2019-05-28] MEDS ORDERED: CIPROFLOXACIN 500 MG TAB PO STA (16:58)
--- NOTE | 2019-05-28 17:29 | CT Scan Report ---
HEAD CT NONCONTRAST CT DOSE: 537.48 mGy.cm HISTORY: fall TECHNIQUE: Multiaxial CT images of the head were performed without the use of intravenous contrast. A utomated exposure control was utilized for this study. A dose lowering technique was utilized adheri ng to the principles of ALARA. Comparison: Head CT 12/02/2015. Findings: The paranasal sinuses and mastoid air cells are clear. The calvarium and skull base are int act. There is no mass, hematoma, midline shift, acute infarct. White matter hypodensity is nonspecifi c but suggestive of microvascular ischemic change. The ventricles and sulci demonstrate mild age-rela jamaal involutional changes. Of note, there is residual contrast within the brain due to the recent CT e xamination. This can result in suboptimal evaluation for certain pathologies including intracranial h emorrhage. No abnormal enhancement. Impression: Residual contrast within the brain from the recent abdomen and pelvis CT. No definite acute intracran ial abnormality. Electronically signed by: Tor Watt M.D. 05/28/2019 5:28 PM
[2019-05-28] MEDS ORDERED: HALOPERIDOL LACTATE 5 MG/ML 1 ML VIAL IM STA (18:12)
--- NOTE | 2019-05-28 18:43 | History & Physical Report ---
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 CT scan abd pelvis consistent with acute sigmoid diverticulitis BRBPR likely secondary to above Pt does not meet SIRS/Sepsis Criteria per current CMS guidelines Approximately 20 minutes after my examination patient had syncopal episode while sitting on toilet, moved bowels with large amount of bright red blood per rectum Syncope likely secondary to vasovagal event given bowel movement and blood loss Patient returned to bed and systolic blood pressure in the 80s , improved to 100s with lying in bed, Trendelenburg position and initiation of IVF bolus Repeat CBC revealed H&H 10.7 and 32.3, repeat ECG unchanged Patient also currently complaining of nausea likely in setting of oral administration of Flagyl and Cipro Admit to PCU Administer IV Cipro and Flagyl for acute diverticulitis Clear liquid diet Bedrest Orthostatic vital signs every shift Type and cross and hold for 2 units, transfuse for hemoglobin less than 8 given history of CAD Consult GI H&H every 4 hours Hold oral antihypertensive At this time will not administer any further IV fluid given patient's history of systolic CHF and severe aortic stenosis, monitor volume status closely (4) Combined systolic and diastolic congestive heart failure: Last echo 08/2018 revealed EF 40 to 45%, grade 1 diastolic dysfunction with apical, septal, anterior lateral wall motion abnormality with hypokinesis to akinesis Patient is managed medically with metoprolol and losartan, both will be held She is currently euvolemic, monitor volume status closely Daily weights Strict I&O's Low-sodium diet Follows closely with [facility] cardiology, last seen 05/13 (5) CAD (coronary artery disease): History of CADE in RCA in 2014 and LAD 2012 On metoprolol and losartan, currently on hold intolerant to statin, on Co q10 and fish oil EPIC Yovia rec says to be on ASA 81mg daily, but pt states she does not take (6) Aortic stenosis: Patient with severe aortic stenosis Last seen by Dr. Fletcher 05/13 recommended repeat echocardiogram and likely proceed with surgical intervention of aortic valve Monitor labs as closely (7) CKD (chronic kidney disease), stage III: Baseline creatinine 1.1 BUN/creatinine 27/1.23 today likely in setting of hypovolemia Monitor BMP (8) Hypertension: Blood pressure initially stable until vasovagal episode Hold metoprolol and losartan (9) Hypothyroidism: Continue levothyroxine (10) GERD (gastroesophageal reflux disease): History of PUD Previously was on omeprazole, currently not taking (11) DVT prophylaxis: SCD/TEDS given BRBPR assess daily need for chemical prophylaxis Disposition: to be determined, pt currently living at home History of Present Illness Chief Complaint: Bright red blood per rectum x1 day. 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 Patient states this morning she woke up and had a BM and had bright red blood, "everywhere." She filled a whole toilet bowl with bright red blood. She had 3-4 additional loose bowel movements with blood noted in each. She complains of left lower quadrant abdominal pain that has been present for a few days, but she is unsure how long its been there. Further she admits to nausea and decreased appetite starting last night. She denies any fever, chills, sweats, lightheadedness, dizziness, syncope, headache chest pain, shortness breath, palpitations, emesis, dysuria, hematuria, increased urgency or frequency with urination. She states she has a history of diverticulitis in the past which presented similarly. Patient presented to PCP office today and was seen by REGULO Goode who recommended urgent ER eval. Further it was noted she had about a fall approximately 1 week ago when hit the back of her head, due to losing balance. She did not seek medical attention at the time. Also elicited an outpatient PCP note is that patient was hospitalized at [facility] a couple years ago secondary to anemia requiring blood transfusions. Pt further elicits to me, "I have a valve problem and I think I'm going to be getting surgery soon." Addendum at 1900: Summoned by ED provider and nursing staff as patient became unresponsive while on toilet. She had a large BM with significant bright red blood. Patient's blood pressure systolically in the 80s. Return to bed in Trendelenburg position. Bolus of IVF was started and her blood pressure improved to systolically 110. Overall patient states "I feel like crap." Complains of overall feeling lightheaded, dizzy and nauseated. "I think those antibiotics made sick in the stomach." She denies any chest pain, palpitations, shortness of breath. Continues with mild left lower quadrant abdominal pain. Repeat CBC reveals hemoglobin 10.7 and hematocrit 32.3, W BC 12.95 Repeat EKG reveals normal sinus rhythm with heart rate 71, unchanged from prior. Allergies Allergy/AdvReac Type Severity Reaction Status Date / Time clopidogrel Allergy Mild RASH Verified 05/28/19 14:00 Penicillins Allergy Mild RASH Verified 05/28/19 14:00 tetracycline Allergy Mild UNKNOWN Verified 05/28/19 14:00 ranitidine AdvReac Intermediate PALPITATION Verified 05/28/19 14:00 S lisinopril AdvReac Unknown DRY COUGH Verified 05/28/19 14:00 Home Medications Home Medications Medication Instructions Recorded Confirmed Type coenzyme Q10 100 mg PO DAILY 05/28/19 05/28/19 History losartan 12.5 mg PO QAM 05/28/19 05/28/19 History magnesium oxide 400 mg PO DAILY 05/28/19 05/28/19 History metoprolol succinate 25 mg PO HS 05/28/19 05/28/19 History omega-3 fatty acids [Fish Oil 1,000 mg PO DAILY 05/28/19 05/28/19 History Concentrate] thyroid (pork) [[place] Thyroid] 30 mg PO 4XWK 05/28/19 05/28/19 History thyroid (pork) [[place] Thyroid] 60 mg PO 3XWK 05/28/19 05/28/19 History Past Med/Surg History Medical History Aortic stenosis (Chronic) 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) Gastric ulcer (Chronic) CAD (coronary artery disease) (Chronic) "s/p stents in 2012" Chronic systolic heart failure (Chronic) Ischemic cardiomyopathy (Chronic) Hypertension (Chronic) Hypothyroidism (Chronic) CKD (chronic kidney disease), stage III (Chronic) GERD (gastroesophageal reflux disease) (Chronic) Surgical History S/P angioplasty with stent (Chronic) "06/2013- drug eluting stent to LAD 04/2015- drug eluting stent to ostial RCA" S/P tonsillectomy and adenoidectomy (Chronic) H/O: hysterectomy (Chronic) S/P BSO (bilateral salpingo-oophorectomy) (Chronic) S/P TKR (total knee replacement) (Chronic) Family History Father , 73 No problems noted. Mother , 73 Kidney disease Coronary heart disease Cancer Kidney Diabetes Sister , 62 Colorectal cancer Social History Preferred Language: Tajik Communication Ability: Effective Senior Category Manager Required: Yes Beliefs That Will Affect Care: None marital status: Current Living Situation: Alone current occupational status: retired Other Information That Helps Us Care for You: No other: Ambulates with cane Feels Safe at Home: Yes Safety Concerns: Feels Safe At This Time Smoking Status: Never smoker Do You Dip or Chew Tobacco: No ; Second Hand Exposure: No ; Tobacco Cessation Education Requested by Patient: No Hx Alcohol Use: No Hx Substance Use: No Review of Systems Review of Systems: As noted per HPI, 10 systems reviewed and negative unless noted above. Physical Exam Physical Exam: Gen: WD/WN, elderly, female, NAD, sitting up in bed, pleasant, conversing easily Head: Normocephalic, Atraumatic Eyes: Sclera normal, no conjunctival injection, PERRLA, EOMI ENT: Gross hearing intact, normal pharynx, mucous membranes moist Neck: supple, no adenopathy, No JVD, no bruit, Resp: Clear to auscultation b/l, no wheeze, rales, rhonchi. Normal insp/exp effort, no accessory muscle use CV: Regular rate, regular rhythm, harsh 3/6 CONSUELO noted throughout precordium, best RUSB, no rub, gallop, or ectopy Abd: +BS x 4, soft, tenderness to light palpation left lower quadrant, no rebound no guarding no rigidity, Musculoskeletal: moves extremities active rom x 4, strength intact, good diamond sizer and sorter strength Extremities: No edema bilaterally Skin: warm, moist, no rash, negative turgor, cap refill < 2sec Neuro: Alert and oriented x 3, appears to have some underlying dementia, speech normal, good mood/affect, cran nerve 2-12 intact grossly : deferred Results & Data Vital Signs (Past 12 Hours) Vital Signs Temp Pulse Pulse Resp BP BP Pulse Ox 05/28/19 17:30 86 24 125/64 99 05/28/19 17:00 97 05/28/19 16:31 81 19 145/68 H 98 05/28/19 16:30 80 21 100 05/28/19 16:17 80 17 121/65 99 05/28/19 16:08 84 18 121/65 99 05/28/19 16:07 75 13 05/28/19 15:30 80 20 134/54 L 99 05/28/19 14:13 77 18 140/77 99 05/28/19 12:54 36.5 C 89 91 H 139/76 98 Laboratory Results Short CBC 05/28/19 05/28/19 Range/Units 13:49 13:49 WBC 10.93 H (4.8-10.8) K/uL Hgb 12.0 (12.0-16.0) g/dL Hct 36.2 L (37-47) % Plt Count 217 (130-400) K/uL Creatinine 1.23 H (0.6-1.2) mg/dl BMP 05/28/19 13:49 Sodium 136 Potassium 4.3 Chloride 104 Carbon Dioxide 26 BUN 27 H Creatinine 1.23 H Glucose 104 H Calcium 9.1 Cardiac Enzymes 05/28/19 Range/Units 13:49 Troponin I < 0.015 (0-0.045) ng/ml Liver Function 05/28/19 Range/Units 13:49 Total Bilirubin 0.3 (0.2-1) mg/dl AST 22 (15-37) U/L ALT 25 (12-78) U/L Alkaline Phosphatase 108 (45-117) U/L Albumin 3.5 (3.4-5.0) gm/dl Diagnostic Findings head CT: Findings: The paranasal sinuses and mastoid air cells are clear. The calvarium and skull base are intact. There is no mass, hematoma, midline shift, acute infarct. White matter hypodensity is nonspecific but suggestive of microvascular ischemic change. The ventricles and sulci demonstrate mild age-related involutional changes. Of note, there is residual contrast within the brain due to the recent CT examination. This can result in suboptimal evaluation for certain pathologies including intracranial hemorrhage. No abnormal enhancement. Impression: Residual contrast within the brain from the recent abdomen and pelvis CT. No definite acute intracranial abnormality Abd/Pelvis CT: FINDINGS: Bibasilar reticular opacities are suggestive of fibrosis. No pneumatosis or pneumoperitoneum. Coronary arterial and aortic annular calcifications are noted. Imaged inferior cardiac chambers are mildly enlarged. No pericardial effusion. Mural calcifications about the left ventricular apex are suggestive of prior myocardial infarction with mild mural fibrofatty changes. Gallbladder, spleen, pancreas and adrenal glands are unremarkable. Liver is also within normal limits. Motion degraded exam. Bilateral renal cysts measure up to 4.2 cm on the right. No renal or ureteral calculi or obstructive uropathy. Ureters are unremarkable. Partial distention of the bladder with mild wall thickening. Hysterectomy. No adnexal mass lesion. Extensive calcified plaque of the abdominal aorta and branch vessels without aneurysm. No adenopathy by CT size criteria. Moderate hiatal hernia. There is no small bowel obstruction. Colonic diverticulosis. Mild wall thickening with inflammatory stranding centered about a proximal sigmoid diverticulum, image 254 series 3. No evidence of perforation or drainable fluid collection. Terminal ileum and appendix appear normal. Soft tissues are unremarkable. Demineralized appearance of the bones. Degenerative changes of the spine, pelvis and hips. No acute fracture identified. IMPRESSION: 1. Colonic diverticulosis. There is mild inflammation centered about a proximal sigmoid diverticulum suggestive of subtle acute sigmoid diverticulitis. No evidence of perforation or drainable fluid collection. 2. No bowel obstruction. 3. Moderate hiatal hernia. 4. Cardiomegaly. 5. Additional findings as above. Medications Administered Ioversol (Optiray 320 100ml) 89 ml IV ONCE PRN PRN Reason: Interaction Checking Stop: 06/01/19 16:00 Last Admin: 05/28/19 16:01 Dose: 89 ml Documented by: [id number] Discontinued Medications Ciprofloxacin (Cipro) 500 mg PO NOW STA Stop: 05/28/19 16:59 Last Admin: 05/28/19 17:49 Dose: 500 mg Documented by: [id number] Metronidazole (Flagyl) 500 mg PO NOW STA Stop: 05/28/19 16:59 Last Admin: 05/28/19 17:49 Dose: 500 mg Documented by: [id number] Ondansetron HCl (Zofran) 4 mg IV ONE STA Stop: 05/28/19 13:34 Last Admin: 05/28/19 14:17 Dose: 4 mg Documented by: [id number] ECG Rate (beats per minute): 76 Rhythm: normal sinus Code Status & VTE Plan Code Status Full Code VTE Prophylaxis Plan VTE Prophylaxis will be ordered: Yes Reason for no VTE drug order: Contraindicated Supervising Physician Co-Signing Physician Notes I have seen and examined the patient and have discussed the case with the provider above. I agree with the assessment and plan as stated. I saw the patient after her syncopal event and she was ashen and feeling poorly. She reported at least two significant bright red bowel movements. She reported RLQ pain that was intermittent over the last two weeks. Exam reveals a soft nontender, nondistended abdomen. A 3/6 CONSUELO across precordium was heard on auscultation and lungs were clear to auscultation bilaterally. Agree with antibiotics for acute diverticulitis seen on CT imaging. Pt likely became sick and syncopal after taking these abx on an empty stomach. Cont supportive care efforts, trend H/H. After she arrived on the floor I saw her again and she was clinically improved. She was not tachycardic and the color had returned to her face. She reported feeling much better after her clear liquid tray and receiving the 1L of IVF in the ER. She was consented for blood in case the need should arise overnight. DO Krish
[2019-05-28] MEDS ORDERED: SODIUM CHLORIDE 0.9% 1000ML 1,000 ML IV ONE (19:00)
[2019-05-28 19:09] LABS: Basophils # (auto) 0.05 K/uL (0-0.2); Basophils % (auto) 0.4 %; Eosinophils # (auto) 0.12 K/uL (0-0.5); Eosinophils % (auto) 0.9 %; Hematocrit (blood only) 32.3 % (37-47); Hemoglobin 10.7 g/dL (12.0-16.0); Immature Granulocytes # (auto) 0.04 K/uL (0.00-0.02); Immature Granulocytes % (auto) 0.3 %; Lymphocytes # (auto) 4.17 K/uL (1.2-3.4); Lymphocytes % (auto) 32.2 %; Mean Corpuscular Hgb Conc 33.1 g/dL (32-36); Mean Corpuscular Volume 80.8 fL (80-100); Mean Platelet Volume 10.3 fL (7.4-10.4); Monocytes # (auto) 1.47 K/uL (0.11-0.59); Monocytes % (auto) 11.4 %; Neutrophils % (auto) 54.8 %; Platelet Count 190 K/uL (130-400); RDW Coefficient of Variation 15.1 % (11.5-14.5); RDW Standard Deviation 44.1 fL (36.4-46.3); White Blood Count 12.95 K/uL (4.8-10.8)
--- NOTE | 2019-05-28 19:48 | Emergency Department Note ---
Entered by Gretel Werner acting as a scribe for History of Present Illness General Chief complaint: Rectal Bleed Stated complaint: RECTAL BLEEDING Time Seen by Provider: 05/28/19 13:17 Source: patient History of Present Illness Onset (ago): hour(s) (6.5) Location: buttocks (rectum) Pain Consistency: + other (episode) Maximum Pain Intensity: 4 Quality: + other (bleeding) Associated symptoms: + denies other symptoms (dizziness), + nausea/vomiting (nausea) and + other (abdominal pain, lightheadedness); no shortness of breath The patient is an 78 year old female who presents to the Emergency Room with complaints of an episode of rectal bleeding starting 6.5 hours ago. The patient states that she normally has bowel incontinence at baseline. She reports that this morning she suddenly had the urge to go to the bathroom and then was leaking a mixture of stool and blood from her rectum. She reports that when she did move her bowels it was a mixture of the two, but her next 3 episodes since then have been straight blood. She states that she decided to come to the ED as she had this problem 5 years ago and had to be admitted for transfusions. The patient complains of abdominal pain over the last few days, nausea, and lightheadedness. The patient denies dizziness and shortness of breath. The patients daughter notes that the patient is not all with it. She reports that she is supposed to take her medications, including a baby Aspirin, but she doesnt usually remember to take them. Home Medications Home Medications Medication Instructions Recorded Confirmed Type coenzyme Q10 100 mg PO DAILY 05/28/19 05/28/19 History losartan 12.5 mg PO QAM 05/28/19 05/28/19 History magnesium oxide 400 mg PO DAILY 05/28/19 05/28/19 History metoprolol succinate 25 mg PO HS 05/28/19 05/28/19 History omega-3 fatty acids [Fish Oil 1,000 mg PO DAILY 05/28/19 05/28/19 History Concentrate] thyroid (pork) [[place] Thyroid] 30 mg PO 4XWK 05/28/19 05/28/19 History thyroid (pork) [[place] Thyroid] 60 mg PO 3XWK 05/28/19 05/28/19 History Allergies Allergy/AdvReac Type Severity Reaction Status Date / Time clopidogrel Allergy Mild RASH Verified 05/28/19 14:00 Penicillins Allergy Mild RASH Verified 05/28/19 14:00 tetracycline Allergy Mild UNKNOWN Verified 05/28/19 14:00 ranitidine AdvReac Intermediate PALPITATION Verified 05/28/19 14:00 S lisinopril AdvReac Unknown DRY COUGH Verified 05/28/19 14:00 Past Med/Surg History Medical History Aortic stenosis (Chronic) 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) Gastric ulcer (Chronic) CAD (coronary artery disease) (Chronic) "s/p stents in 2012" Chronic systolic heart failure (Chronic) Ischemic cardiomyopathy (Chronic) Hypertension (Chronic) Hypothyroidism (Chronic) CKD (chronic kidney disease), stage III (Chronic) GERD (gastroesophageal reflux disease) (Chronic) Surgical History S/P angioplasty with stent (Chronic) "06/2013- drug eluting stent to LAD 04/2015- drug eluting stent to ostial RCA" S/P tonsillectomy and adenoidectomy (Chronic) H/O: hysterectomy (Chronic) S/P BSO (bilateral salpingo-oophorectomy) (Chronic) S/P TKR (total knee replacement) (Chronic) Family History Father , 73 No problems noted. Mother , 73 Kidney disease Coronary heart disease Cancer Kidney Diabetes Sister , 62 Colorectal cancer Social History Preferred Language: Czech Communication Ability: Effective marital status: Current Living Situation: Alone current occupational status: retired other: Ambulates with cane Feels Safe at Home: Yes Smoking Status: Never smoker Hx Alcohol Use: No Hx Substance Use: No Review of Systems See HPI for pertinent positives & negatives. and A total of 10 systems reviewed and were otherwise negative Physical Exam Vital Signs Vital Signs - 24 hr 05/28/19 12:54 05/28/19 14:13 05/28/19 15:30 Temperature 36.5 C Temperature Source Oral Sepsis Recent Fever Within 48 Hours No Sepsis New/Unexplained Change in Mental Status No Sepsis Action Taken by Nursing No Action Required Pulse Rate 89 80 Pulse Rate [Finger] 77 Pulse Rate from SpO2 Sensor 80 Respiratory Rate 91 H 18 20 Respiratory Effort / Characteristics Non-Labored Spontaneous Respiratory Depth Normal Blood Pressure 139/76 134/54 L Blood Pressure [Left Arm] 140/77 Blood Pressure Mean 97 80 Blood Pressure Mean [Left Arm] 98 Pulse Oximetry 98 99 99 Oxygen Delivery Method Room Air Room Air 05/28/19 16:07 05/28/19 16:08 05/28/19 16:17 Temperature Temperature Source Sepsis Recent Fever Within 48 Hours Sepsis New/Unexplained Change in Mental Status Sepsis Action Taken by Nursing Pulse Rate 75 84 Pulse Rate [Finger] 80 Pulse Rate from SpO2 Sensor 82 Respiratory Rate 13 18 17 Respiratory Effort / Characteristics Respiratory Depth Blood Pressure 121/65 Blood Pressure [Left Arm] 121/65 Blood Pressure Mean 83 Blood Pressure Mean [Left Arm] 83 Pulse Oximetry 99 99 Oxygen Delivery Method Room Air 05/28/19 16:30 05/28/19 16:31 05/28/19 17:00 Temperature Temperature Source Sepsis Recent Fever Within 48 Hours Sepsis New/Unexplained Change in Mental Status Sepsis Action Taken by Nursing Pulse Rate 80 81 Pulse Rate [Finger] Pulse Rate from SpO2 Sensor 80 81 81 Respiratory Rate 21 19 Respiratory Effort / Characteristics Respiratory Depth Blood Pressure 145/68 H Blood Pressure [Left Arm] Blood Pressure Mean 93 Blood Pressure Mean [Left Arm] Pulse Oximetry 100 98 97 Oxygen Delivery Method 05/28/19 17:30 05/28/19 17:40 05/28/19 17:50 Temperature Temperature Source Sepsis Recent Fever Within 48 Hours Sepsis New/Unexplained Change in Mental Status Sepsis Action Taken by Nursing Pulse Rate 86 82 79 Pulse Rate [Finger] Pulse Rate from SpO2 Sensor 86 82 80 Respiratory Rate 24 16 15 Respiratory Effort / Characteristics Respiratory Depth Blood Pressure 125/64 Blood Pressure [Left Arm] Blood Pressure Mean 84 Blood Pressure Mean [Left Arm] Pulse Oximetry 99 99 100 Oxygen Delivery Method 05/28/19 18:00 05/28/19 18:10 05/28/19 18:20 Temperature Temperature Source Sepsis Recent Fever Within 48 Hours Sepsis New/Unexplained Change in Mental Status Sepsis Action Taken by Nursing Pulse Rate 82 82 85 Pulse Rate [Finger] Pulse Rate from SpO2 Sensor 82 83 84 Respiratory Rate 20 19 20 Respiratory Effort / Characteristics Respiratory Depth Blood Pressure 152/83 H Blood Pressure [Left Arm] Blood Pressure Mean 106 Blood Pressure Mean [Left Arm] Pulse Oximetry 100 98 99 Oxygen Delivery Method 05/28/19 18:30 05/28/19 18:40 05/28/19 18:56 Temperature Temperature Source Sepsis Recent Fever Within 48 Hours Sepsis New/Unexplained Change in Mental Status Sepsis Action Taken by Nursing Pulse Rate 86 86 70 Pulse Rate [Finger] Pulse Rate from SpO2 Sensor 86 86 71 Respiratory Rate 21 18 31 H Respiratory Effort / Characteristics Respiratory Depth Blood Pressure 142/71 H 86/46 L Blood Pressure [Left Arm] Blood Pressure Mean 94 59 Blood Pressure Mean [Left Arm] Pulse Oximetry 99 97 99 Oxygen Delivery Method 05/28/19 18:59 05/28/19 19:01 Temperature Temperature Source Sepsis Recent Fever Within 48 Hours Sepsis New/Unexplained Change in Mental Status Sepsis Action Taken by Nursing Pulse Rate Pulse Rate [Finger] 67 Pulse Rate from SpO2 Sensor Respiratory Rate Respiratory Effort / Characteristics Respiratory Depth Blood Pressure Blood Pressure [Left Arm] 91/40 L 126/51 L Blood Pressure Mean Blood Pressure Mean [Left Arm] 57 76 Pulse Oximetry 97 Oxygen Delivery Method Room Air GENERAL: Awake, alert, fatigued appearing, in no distress HENT: Normocephalic, atraumatic. Oropharynx unremarkable. EYES: Normal conjunctiva. Sclera non-icteric. NECK: Supple. No nuchal rigidity. RESPIRATORY: Clear to auscultation. No wheezes. Normal respiratory effort. CARDIAC: Normal rate. Normal rhythm. Extremities warm and well perfused. GI: Soft, non-distended. Lower abdominal tenderness to palpation. No rebound or guarding. RECTAL: Deferred. MUSCULOSKELETAL: Atraumatic. Chest examination reveals no tenderness. LOWER EXTREMITIES: Calves are equal size bilaterally and non-tender. No edema NEURO: Normal sensorium. No sensory or motor deficits noted. No facial droop. SKIN: Warm and dry. No rash or jaundice noted. Course 1318: Past medical records reviewed. The patient was evaluated in room C2B by the resident, Agata Ryan. A complete history and physical exam was performed. 1409: Past medical records reviewed. The patient was evaluated in room C2B by me. A complete history and physical exam was performed. 1636: I reevaluated the patient and she states that she fell last night and struck her head on a dresser. 1644: The resident, Agata Ryan, spoke with the patient's daughter who st ates that the patient falls all the time and doesn't take her medications. She states that she is nervous about the patient going home. She notes that she also has been trying to get her evaluated for dementia, but the patient keeps cancelling appointments and has been released from multiple practices since she cancels and doesn't take her medications. 1732: The resident, Agata Ryan, reevaluated the patient and updated her and her daughter on her test results. She discussed the treatment plan with them as well. She reports that they verbally agree and understand. The patient's daughter, Aaliyah, gave her phone number to contact if need be at [phone]. 1803: I discussed the patient's case [facility]. She will evaluate the patient for further management. 1850: Nursing staff called me into the room. The patient is unresponsive in the bathroom. She is diaphoretic. There is bright red blood noted to be in the toilet. Pulse present. Patient was moved back to the bed. She was answering basic orientation questions. 1858: I updated [facility] on the episode. Patient noted to be hypotensive. Fluid bolus was given. 1901: I reevaluated the patient and the [facility] is at bedside. Consultations Consultation #1: I [facility] the [facility] She will evaluate the patient for further management. Time: 18:03 Administered Medications Sodium Chloride (Nss 1000ml) 1,000 mls @ 999 mls/hr IV .Q1H1M ONE Stop: 05/28/19 20:00 Last Admin: 05/28/19 19:00 Dose: 999 mls/hr Documented by: [id number] Ioversol (Optiray 320 100ml) 89 ml IV ONCE PRN PRN Reason: Interaction Checking Stop: 06/01/19 16:00 Last Admin: 05/28/19 16:01 Dose: 89 ml Documented by: [id number] Discontinued Medications Ciprofloxacin (Cipro) 500 mg PO NOW STA Stop: 05/28/19 16:59 Last Admin: 05/28/19 17:49 Dose: 500 mg Documented by: [id number] Haloperidol Lactate (Haldol) 5 mg IM NOW STA Stop: 05/28/19 18:13 Last Admin: 05/28/19 19:10 Dose: Not Given Documented by: [id number] Metronidazole (Flagyl) 500 mg PO NOW STA Stop: 05/28/19 16:59 Last Admin: 05/28/19 17:49 Dose: 500 mg Documented by: [id number] Ondansetron HCl (Zofran) 4 mg IV ONE STA Stop: 05/28/19 13:34 Last Admin: 05/28/19 14:17 Dose: 4 mg Documented by: [id number] Medical Decision Making Differential Diagnosis Differential diagnoses includes but is not limited to gastritis, peptic ulcer disease, GERD, gallbladder disease, pancreatitis, small bowel obstruction, acute coronary syndrome, pericarditis, ischemic bowel, irritable bowel disease, irritable bowel syndrome, appendicitis, diverticulitis, malignancy, hernia, urinary tract infection, torsion, perforation, trauma, infectious. Medical Records Attestation: I reviewed the patient's medical records. Home Medications Current Medication List: was personally reviewed by me Laboratory Data Attestation: I reviewed the patient's lab results. Result diagrams: 05/28/19 19:00 05/28/19 13:49 Lab Results 05/28/19 05/28/19 05/28/19 Range/Units 13:49 13:49 13:49 WBC 10.93 H (4.8-10.8) K/uL RBC 4.50 (4.2-5.4) M/uL Hgb 12.0 (12.0-16.0) g/dL Hct 36.2 L (37-47) % MCV 80.4 (80-100) fL MCH 26.7 (25-34) pg MCHC 33.1 (32-36) g/dL RDW Std Deviation 43.8 (36.4-46.3) fL RDW Coeff of Yvonne 15.0 H (11.5-14.5) % Plt Count 217 (130-400) K/uL MPV 10.9 H (7.4-10.4) fL Immature Gran % (Auto) 0.3 % Neut % (Auto) 76.7 % Lymph % (Auto) 14.5 % Ashley % (Auto) 7.9 % Eos % (Auto) 0.3 % Baso % (Auto) 0.3 % Immature Gran # (Auto) 0.03 H (0.00-0.02) K/uL Neut # (Auto) 8.40 H (1.4-6.5) K/uL Lymph # (Auto) 1.58 (1.2-3.4) K/uL Ashley # (Auto) 0.86 H (0.11-0.59) K/uL Eos # (Auto) 0.03 (0-0.5) K/uL Baso # (Auto) 0.03 (0-0.2) K/uL PT 10.6 (9.0-12.0) Seconds INR 1.0 (0.9-1.1) APTT 26.7 (21.0-31.0) Seconds PTT Ratio 1.0 Sodium 136 (136-145) mmol/L Potassium 4.3 (3.5-5.1) mmol/L Chloride 104 (98-107) mmol/L Carbon Dioxide 26 (21-32) mmol/L Anion Gap 6.0 (3-11) BUN 27 H (7-18) mg/dl Creatinine 1.23 H (0.6-1.2) mg/dl Est Cr Clr Drug Dosing 28.1 ml/min Est GFR ( Amer) 48.0 Est GFR (Non-Af Amer) 41.4 BUN/Creatinine Ratio 22.0 H (10-20) Glucose 104 H (70-99) mg/dl Calcium 9.1 (8.5-10.1) mg/dl Total Bilirubin 0.3 (0.2-1) mg/dl AST 22 (15-37) U/L ALT 25 (12-78) U/L Alkaline Phosphatase 108 (45-117) U/L Troponin I < 0.015 (0-0.045) ng/ml Total Protein 7.7 (6.4-8.2) gm/dl Albumin 3.5 (3.4-5.0) gm/dl Globulin 4.2 H (2.5-4.0) gm/dl Albumin/Globulin Ratio 0.8 L (0.9-2) Blood Type Antibody Screen Crossmatch 05/28/19 05/28/19 Range/Units 13:49 19:00 WBC 12.95 H (4.8-10.8) K/uL RBC 4.00 L (4.2-5.4) M/uL Hgb 10.7 L (12.0-16.0) g/dL Hct 32.3 L (37-47) % MCV 80.8 (80-100) fL MCH 26.8 (25-34) pg MCHC 33.1 (32-36) g/dL RDW Std Deviation 44.1 (36.4-46.3) fL RDW Coeff of Yvonne 15.1 H (11.5-14.5) % Plt Count 190 (130-400) K/uL MPV 10.3 (7.4-10.4) fL Immature Gran % (Auto) 0.3 % Neut % (Auto) 54.8 % Lymph % (Auto) 32.2 % Ashley % (Auto) 11.4 % Eos % (Auto) 0.9 % Baso % (Auto) 0.4 % Immature Gran # (Auto) 0.04 H (0.00-0.02) K/uL Neut # (Auto) 7.10 H (1.4-6.5) K/uL Lymph # (Auto) 4.17 H (1.2-3.4) K/uL Ashley # (Auto) 1.47 H (0.11-0.59) K/uL Eos # (Auto) 0.12 (0-0.5) K/uL Baso # (Auto) 0.05 (0-0.2) K/uL PT (9.0-12.0) Seconds INR (0.9-1.1) APTT (21.0-31.0) Seconds PTT Ratio Sodium (136-145) mmol/L Potassium (3.5-5.1) mmol/L Chloride (98-107) mmol/L Carbon Dioxide (21-32) mmol/L Anion Gap (3-11) BUN (7-18) mg/dl Creatinine (0.6-1.2) mg/dl Est Cr Clr Drug Dosing ml/min Est GFR ( Amer) Est GFR (Non-Af Amer) BUN/Creatinine Ratio (10-20) Glucose (70-99) mg/dl Calcium (8.5-10.1) mg/dl Total Bilirubin (0.2-1) mg/dl AST (15-37) U/L ALT (12-78) U/L Alkaline Phosphatase (45-117) U/L Troponin I (0-0.045) ng/ml Total Protein (6.4-8.2) gm/dl Albumin (3.4-5.0) gm/dl Globulin (2.5-4.0) gm/dl Albumin/Globulin Ratio (0.9-2) Blood Type O Positive Antibody Screen NEGATIVE Crossmatch See Detail Imaging Data Radiologist's Impression: Radiology results as stated below per my review and the radiologist's interpretation: HEAD CT NONCONTRAST CT DOSE: 537.48 mGy.cm HISTORY: fall TECHNIQUE: Multiaxial CT images of the head were performed without the use of intravenous contrast. Automated exposure control was utilized for this study. A dose lowering technique was utilized adhering to the principles of ALARA. Comparison: Head CT 12/02/2015. Findings: The paranasal sinuses and mastoid air cells are clear. The calvarium and skull base are intact. There is no mass, hematoma, midline shift, acute infarct. White matter hypodensity is nonspecific but suggestive of microvascular ischemic change. The ventricles and sulci demonstrate mild age-related involutional changes. Of note, there is residual contrast within the brain due to the recent CT examination. This can result in suboptimal evaluation for certain pathologies including intracranial hemorrhage. No abnormal enhancement. Impression: Residual contrast within the brain from the recent abdomen and pelvis CT. No definite acute intracranial abnormality. Electronically signed by: Tor Watt M.D. 05/28/2019 5:28 PM ABDOMEN AND PELVIS CT WITH IV CONTRAST CT DOSE: 731.37 mGycm HISTORY: Acute rectal bleeding BRBPR TECHNIQUE: Multiaxial CT images of the abdomen and pelvis were performed following the use of intravenous contrast. A dose lowering technique was utilized adhering to the principles of ALARA. COMPARISON STUDY: None. FINDINGS: Bibasilar reticular opacities are suggestive of fibrosis. No pneumatosis or pneumoperitoneum. Coronary arterial and aortic annular calcifications are noted. Imaged inferior cardiac chambers are mildly enlarged. No pericardial effusion. Mural calcifications about the left ventricular apex are suggestive of prior myocardial infarction with mild mural fibrofatty changes. Gallbladder, spleen, pancreas and adrenal glands are unremarkable. Liver is also within normal limits. Motion degraded exam. Bilateral renal cysts measure up to 4.2 cm on the right. No renal or ureteral calculi or obstructive uropathy. Ureters are unremarkable. Partial distention of the bladder with mild wall thickening. Hysterectomy. No adnexal mass lesion. Extensive calcified plaque of the abdominal aorta and branch vessels without aneurysm. No adenopathy by CT size criteria. Moderate hiatal hernia. There is no small bowel obstruction. Colonic diverticulosis. Mild wall thickening with inflammatory stranding centered about a proximal sigmoid diverticulum, image 254 series 3. No evidence of perforation or drainable fluid collection. Terminal ileum and appendix appear normal. Soft tissues are unremarkable. Demineralized appearance of the bones. Degenerative changes of the spine, pelvis and hips. No acute fracture identified. IMPRESSION: 1. Colonic diverticulosis. There is mild inflammation centered about a proximal sigmoid diverticulum suggestive of subtle acute sigmoid diverticulitis. No evidence of perforation or drainable fluid collection. 2. No bowel obstruction. 3. Moderate hiatal hernia. 4. Cardiomegaly. 5. Additional findings as above. Electronically signed by: Sb Liu M.D. 05/28/2019 4:21 PM ECG Data Attestation: I personally reviewed and interpreted this ECG as follows: Indication: nausea Rate (beats per minute): 76 Rhythm: normal sinus Findings: + other (normal intervals); no PVC, no ST depression and no ST elevation Blood Pressure Blood Pressure Findings: Normal blood pressure Blood Pressure Disposition: did not require urgent referral Head Trauma GCS Score: 15 MDM Narrative 78-year-old female with a history of aortic stenosis, diverticulitis, CAD CKD presenting today with bright red blood per rectum this morning with at least 4 episodes. Several days of abdominal pain reported with out fever or trauma. History of diverticular bleed requiring transfusion and ICU admission several years ago at [place]. Patient does have a history of gastric ulcers in the more distant past. Additionally has a cardiac history and heart failure history. No dizziness or no shortness of breath today. A bit of nausea with left lower quadrant tenderness in particular. Patient states she sometimes take an aspirin but denies significant NSAID usage. She is not the best historian. Patient's daughter is present. Seen in conjunction with the resident. Patient later relays that she may have fallen several days ago and struck the left back of her head. No evidence of significant wound here.. Abdomen pelvis CT shows evidence of diverticulitis. Laboratory studies are unremarkable without significant evidence of anemia or systemic infection. Kidney function actually bit better than baseline. CT scan of the head showed no acute intracranial normality. Discussed with patient and patient's family options of a trial of Cipro and Flagyl in the outpatient setting however they have concerns of the patient going home to the fact that she lives at home and set falls and weakness issues. Given this discussed with the [facility] hospitalist for admission. While still in the department the patient is a bathroom several times however was called the room and the patient was found unresponsive on the toilet with bright red blood in the toilet and she appeared diaphoretic. Patient did have a pulse and was groggy. Moved with staff back to the bed where she was found to be hypotensive but not tachycardic. Patient given 1 L fluid bolus and frequently reassessed with very quick improvement of mental status over several minutes although feeling tired. [facility] hospitalist team was updated. Repeat CBC completed showing H&H drop to 10.7. Did discuss with the patient's granddaughter who works at the facility as well. Impression & Plan Diverticulitis, GI bleed Discharge Plan Visit Data Chief Complaint: Rectal Bleed Stated Complaint: RECTAL BLEEDING ED Provider: Brody Bermudez ED Midlevel Provider: Agata Ryan Discharge Problem: Diverticulitis, GI bleed Patient Disposition: Being Evaluated by Hospitalist Forms Stand Alone Forms: My [facility] Prescriptions Prescriptions: No Action losartan 25 mg Tablet 12.5 mg PO QAM RF: 0 metoprolol succinate 25 mg Tablet Extended Release 24 Hr 25 mg PO HS RF: 0 thyroid (pork) [[place] Thyroid] 30 mg Tablet 30 mg PO 4XWK RF: 0 thyroid (pork) [[place] Thyroid] 60 mg Tablet 60 mg PO 3XWK RF: 0 omega-3 fatty acids [Fish Oil Concentrate] 1,000 mg Capsule 1,000 mg PO DAILY RF: 0 magnesium oxide 400 mg magnesium Capsule 400 mg PO DAILY RF: 0 coenzyme Q10 100 mg Tablet 100 mg PO DAILY RF: 0 Referrals Referrals: Rey Nation MD [Primary Care Provider] - Discharge Problem: GI bleed Qualifiers: GI bleed type/associated pathology: unspecified gastrointestinal hemorrhage type Qualified Code(s): K92.2 - Gastrointestinal hemorrhage, unspecified The scribe's documentation has been prepared under my direction and personally reviewed by me in its entirety. I confirm that the note above accurately reflects all work, treatment, procedures, and medical decision making performed by me.
[2019-05-28] MEDS ORDERED: ONDANSETRON INJ 2 MG/ML 2 ML VIAL IV PRN (20:28)
[2019-05-28] MEDS ORDERED: SODIUM CHLORIDE 0.9% 250 ML IV PRN (20:28)
[2019-05-28] MEDS ORDERED: MAGNESIUM HYDROXIDE SUSP 30 ML UDC PO PRN (20:28)
[2019-05-28] MEDS ORDERED: ALUMINUM/MAGNESIUM SUSP 30 ML UDC PO PRN (20:28)
[2019-05-28] MEDS ORDERED: POLYETHYLENE (MIRALAX) 17 GM PACK PO PRN (20:28)
[2019-05-28] MEDS ORDERED: ACETAMINOPHEN 325 MG TAB PO PRN (20:28)
[2019-05-28 23:32] LABS: Hematocrit (blood only) 27.8 % (37-47); Hemoglobin 9.1 g/dL (12.0-16.0)
[2019-05-29] MEDS: metroNIDAZOLE 500 MG/100 ML BAG IV SCH ×3 (02:22→17:51)
[2019-05-29 03:28] LABS: Basophils # (auto) 0.03 K/uL (0-0.2); Basophils % (auto) 0.3 %; Eosinophils # (auto) 0.09 K/uL (0-0.5); Hematocrit (blood only) 27.4 % (37-47); Hemoglobin 8.8 g/dL (12.0-16.0); Immature Granulocytes # (auto) 0.02 K/uL (0.00-0.02); Immature Granulocytes % (auto) 0.2 %; Lymphocytes # (auto) 1.74 K/uL (1.2-3.4); Mean Corpuscular Hgb Conc 32.1 g/dL (32-36); Mean Corpuscular Volume 80.8 fL (80-100); Mean Platelet Volume 10.6 fL (7.4-10.4); Monocytes # (auto) 1.21 K/uL (0.11-0.59); Monocytes % (auto) 13.2 %; Neutrophils # (auto) 6.07 K/uL (1.4-6.5); Neutrophils % (auto) 66.3 %; Platelet Count 181 K/uL (130-400); RDW Coefficient of Variation 14.9 % (11.5-14.5); RDW Standard Deviation 43.8 fL (36.4-46.3); Red Blood Count 3.39 M/uL (4.2-5.4); White Blood Count 9.16 K/uL (4.8-10.8)
[2019-05-29] MEDS: ARMOUR THYROID 30 MG TAB PO SCH (06:22)
[2019-05-29 07:08] LABS: Hematocrit (blood only) 27.7 % (37-47); Hemoglobin 9.1 g/dL (12.0-16.0)
[2019-05-29 07:44] LABS: BUN Creatinine Ratio 17.5 (10-20); Creatinine Clr Calc Pharmacy 30.9 ml/min; Est GFR (Non-African American) 44.9; Magnesium 1.9 mg/dl (1.8-2.4); Potassium 4.1 mmol/L (3.5-5.1)
--- NOTE | 2019-05-29 08:49 | Gastrointestinal Consultation ---
Date of Consultation May 29, 2019 Assessment & Plan (1) Diverticulitis: 78 yo female with significant cardiac disease admitted with several days of LLQ abd pain and imaging consistent with acute sigmoid diverticulitis now with episodes of BRBPR. H/H stable. Not on anticoagulants. - Would continue with conservative management. - Would not advance diet today beyond clear liquids. - Follow H/H. - Continue Cipro and Flagyl. - At some point can consider a colonoscopy as an outpatient once she has recovered from the acute diverticulitis. (2) BRBPR (bright red blood per rectum): (3) Aortic stenosis: (4) Combined systolic and diastolic congestive heart failure: History of Present Illness Reason for Consultation: diverticulitis Attending Physician: Job Winkler MD History of Present Illness Ms. Rafael giordano s an 78 yo female with a history of ischemic CM, mod/severe and CAD s/p CADE 2012 and 2014 who presented to the ER last evening with several days of lower abdominal discomfort and more recent bright red blood in her stool. In the ER she had a large BM of blood and a syncopal episode. She recovered quickly. Received IVF hydration. Feels OK today. Tells me she had been feeling sick for several days. Thinks the antibiotics she received in the ER made her nauseated last evening. Imaging consistent with sigmoid diverticulitis. Started on Cipro and Flagyl. Had a colonoscopy "years ago." H/H is stable. Allergies Allergy/AdvReac Type Severity Reaction Status Date / Time clopidogrel Allergy Mild RASH Verified 05/28/19 14:00 Penicillins Allergy Mild RASH Verified 05/28/19 14:00 tetracycline Allergy Mild UNKNOWN Verified 05/28/19 14:00 ranitidine AdvReac Intermediate PALPITATION Verified 05/28/19 14:00 S lisinopril AdvReac Unknown DRY COUGH Verified 05/28/19 14:00 Home Medications Home Medications Medication Instructions Recorded Confirmed Type coenzyme Q10 100 mg PO DAILY 05/28/19 05/28/19 History losartan 12.5 mg PO QAM 05/28/19 05/28/19 History magnesium oxide 400 mg PO DAILY 05/28/19 05/28/19 History metoprolol succinate 25 mg PO HS 05/28/19 05/28/19 History omega-3 fatty acids [Fish Oil 1,000 mg PO DAILY 05/28/19 05/28/19 History Concentrate] thyroid (pork) [[place] Thyroid] 30 mg PO 4XWK 05/28/19 05/28/19 History thyroid (pork) [[place] Thyroid] 60 mg PO 3XWK 05/28/19 05/28/19 History Patient History Medical History Aortic stenosis (Chronic) 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) Gastric ulcer (Chronic) CAD (coronary artery disease) (Chronic) "s/p stents in 2012" Chronic systolic heart failure (Chronic) Ischemic cardiomyopathy (Chronic) Hypertension (Chronic) Hypothyroidism (Chronic) CKD (chronic kidney disease), stage III (Chronic) GERD (gastroesophageal reflux disease) (Chronic) Surgical History S/P angioplasty with stent (Chronic) "06/2013- drug eluting stent to LAD 04/2015- drug eluting stent to ostial RCA" S/P tonsillectomy and adenoidectomy (Chronic) H/O: hysterectomy (Chronic) S/P BSO (bilateral salpingo-oophorectomy) (Chronic) S/P TKR (total knee replacement) (Chronic) Family History Father , 73 No problems noted. 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 Beliefs That Will Affect Care: None marital status: Current Living Situation: Alone current occupational status: retired Other Information That Helps Us Care for You: No other: Ambulates with cane Feels Safe at Home: Yes Safety Concerns: Feels Safe At This Time Smoking Status: Never smoker Do You Dip or Chew Tobacco: No ; Second Hand Exposure: No ; Tobacco Cessation Education Requested by Patient: No Hx Alcohol Use: No Hx Substance Use: No Review of Systems Review of Systems: All systems reviewed & are unremarkable except as noted in HPI & below Physical Exam Constitutional: WD/WN, vitals as above Eyes: PERRL, conjunctivae normal, anicteric sclerae Neck: trachea midline, no thyromegaly Respiratory: normal respiratory effort, lungs clear to auscultation Cardiovascular: RRR, no murmur, no edema Gastrointestinal (Abdomen): Percussion/Palpation: + abdomen tender lower quadrants Musculoskeletal: no cyanosis or clubbing, extremities motor strength 5/5 Neurologic: CN's II-XI intact bilaterally Results & Data Vital Signs (Past 12 Hours) Vital Signs Temp Pulse Resp BP BP Pulse Ox 05/29/19 07:21 36.6 C 71 16 112/62 97 05/29/19 03:50 36.8 C 81 18 103/61 97 05/28/19 23:18 36.5 C 76 17 95/54 L 96
[2019-05-29 10:56] LABS: Hematocrit (blood only) 26.6 % (37-47); Hemoglobin 8.7 g/dL (12.0-16.0)
[2019-05-29 15:16] LABS: Hematocrit (blood only) 25.9 % (37-47); Hemoglobin 8.5 g/dL (12.0-16.0)
--- NOTE | 2019-05-29 16:24 | Hospitalist Progress Note ---
Date of Service May 29, 2019 Assessment & Plan (1) GI bleed: Presented with fresh blood per rectum. CT demonstrated diverticulosis. GI consulted. Hgb 12.0 --> 8.5. No indication for transfusion at this time per guidelines. Continue to monitor H/H. Consider colonoscopy after resolution of diverticulitis. (2) Diverticulitis: CT demonstrated sigmoid diverticulitis, no apparent abscess / perforation. Continue IV antibiotics. (3) Syncope: Syncopal episode while sitting on toilet. Possible contributing factors: vasovagal episode, orthostatic hypotension, aortic stenosis. Maintain adequate intravascular volume. Continue telemetry. (4) CAD (coronary artery disease): No anginal symptoms. (5) Aortic stenosis: Syncopal episode in setting of GI bleed. Maintain adequate intravascular volume. (6) Combined systolic and diastolic congestive heart failure: Chronic combined left ventricular systolic and diastolic heart failure. Compensated. (7) Hypertension: Monitor hemodynamics closely in setting of GI bleed and aortic stenosis. (8) CKD (chronic kidney disease), stage III: Serum creatinine at time of admission 1.23. Creatinine today = 1.15. Follow. (9) Hypothyroidism: Continue thyroid replacement. (10) DVT prophylaxis: No anticoagulants due to GI bleed. SCD's. Ambulate. (11) Discharge planning issues: Anticipated discharge to home. Family Medicine follow-up with Dr. Nation. Subjective Recheck for GI bleeding and other problems. Patient seen in their room around 09:50. 2 more episodes of rectal bleeding this morning. No fever. No abdominal pain, nausea, vomiting. No further syncopal episodes. Review of Systems: Constitutional- no fever. Cardiac- no chest pain. Pulmonary- no cough or SOB. GI- as noted above. - no urinary symptoms. Otherwise, as noted above. Physical Exam Constitutional: no acute distress Respiratory: no respiratory distress Auscultation: lungs clear to auscultation bilaterally Cardiovascular: Rate/Rhythm: regular rate and regular rhythm Heart Sounds: + murmur (IV/ sys murmur at base); no gallop and no cardiac rub Vessels: no JVD Extremities: no calf tenderness and no edema Gastrointestinal (Abdomen): normal bowel sounds, soft, nontender, no hepatosplenomegaly Skin: no rashes, warm and dry Psychiatric: Orientation: alert and oriented x 3 Results & Data Vital Signs (Past 12 Hours) Vital Signs Temp Pulse Pulse Resp BP BP Pulse Ox 05/29/19 15:25 36.9 C 72 18 102/60 98 05/29/19 11:38 36.7 C 75 20 121/54 L 97 05/29/19 08:15 98 H 05/29/19 07:21 36.6 C 71 16 112/62 97 Laboratory Results Laboratory Results - last 24 hr 05/28/19 05/28/19 05/28/19 13:49 19:00 23:14 WBC 12.95 H RBC 4.00 L Hgb 10.7 L 9.1 L Hct 32.3 L 27.8 L MCV 80.8 MCH 26.8 MCHC 33.1 RDW Std Deviation 44.1 RDW Coeff of Yvonne 15.1 H Plt Count 190 MPV 10.3 Immature Gran % (Auto) 0.3 Neut % (Auto) 54.8 Lymph % (Auto) 32.2 Taylor % (Auto) 11.4 Eos % (Auto) 0.9 Baso % (Auto) 0.4 Immature Gran # (Auto) 0.04 H Neut # (Auto) 7.10 H Lymph # (Auto) 4.17 H Taylor # (Auto) 1.47 H Eos # (Auto) 0.12 Baso # (Auto) 0.05 Sodium Potassium Chloride Carbon Dioxide Anion Gap BUN Creatinine Est Cr Clr Drug Dosing Est GFR ( Amer) Est GFR (Non-Af Amer) BUN/Creatinine Ratio Glucose Calcium Magnesium Blood Type O Positive Antibody Screen NEGATIVE Crossmatch See Detail 05/29/19 05/29/19 05/29/19 03:07 06:50 06:50 WBC 9.16 RBC 3.39 L Hgb 8.8 L 9.1 L Hct 27.4 L 27.7 L MCV 80.8 MCH 26.0 MCHC 32.1 RDW Std Deviation 43.8 RDW Coeff of Yvonne 14.9 H Plt Count 181 MPV 10.6 H Immature Gran % (Auto) 0.2 Neut % (Auto) 66.3 Lymph % (Auto) 19.0 Taylor % (Auto) 13.2 Eos % (Auto) 1.0 Baso % (Auto) 0.3 Immature Gran # (Auto) 0.02 Neut # (Auto) 6.07 Lymph # (Auto) 1.74 Taylor # (Auto) 1.21 H Eos # (Auto) 0.09 Baso # (Auto) 0.03 Sodium 140 Potassium 4.1 Chloride 110 H Carbon Dioxide 24 Anion Gap 6.0 BUN 20 H Creatinine 1.15 Est Cr Clr Drug Dosing 30.9 Est GFR ( Amer) 52.0 Est GFR (Non-Af Amer) 44.9 BUN/Creatinine Ratio 17.5 Glucose 100 H Calcium 8.0 L Magnesium 1.9 Blood Type Antibody Screen Crossmatch 05/29/19 05/29/19 10:46 15:06 WBC RBC Hgb 8.7 L 8.5 L Hct 26.6 L 25.9 L MCV MCH MCHC RDW Std Deviation RDW Coeff of Yvonne Plt Count MPV Immature Gran % (Auto) Neut % (Auto) Lymph % (Auto) Taylor % (Auto) Eos % (Auto) Baso % (Auto) Immature Gran # (Auto) Neut # (Auto) Lymph # (Auto) Taylor # (Auto) Eos # (Auto) Baso # (Auto) Sodium Potassium Chloride Carbon Dioxide Anion Gap BUN Creatinine Est Cr Clr Drug Dosing Est GFR ( Amer) Est GFR (Non-Af Amer) BUN/Creatinine Ratio Glucose Calcium Magnesium Blood Type Antibody Screen Crossmatch (1) GI bleed GI bleed type/associated pathology: unspecified gastrointestinal hemorrhage type Qualified Code(s): K92.2 - Gastrointestinal hemorrhage, unspecified
[2019-05-29] MEDS ORDERED: CIPROFLOXACIN 400 MG/200 ML BAG IV SCH (18:00)
[2019-05-30] MEDS: metroNIDAZOLE 500 MG/100 ML BAG IV SCH ×3 (03:00→18:15)
[2019-05-30] MEDS: ARMOUR THYROID 30 MG TAB PO SCH (06:38)
[2019-05-30 06:46] LABS: Hematocrit (blood only) 25.9 % (37-47); Hemoglobin 8.6 g/dL (12.0-16.0); Mean Corpuscular Hgb Conc 33.2 g/dL (32-36); Mean Corpuscular Volume 80.4 fL (80-100); Mean Platelet Volume 10.6 fL (7.4-10.4); Platelet Count 196 K/uL (130-400); RDW Standard Deviation 44.2 fL (36.4-46.3); Red Blood Count 3.22 M/uL (4.2-5.4)
[2019-05-30 07:10] LABS: BUN Creatinine Ratio 11.3 (10-20); Calcium 7.9 mg/dl (8.5-10.1); Creatinine Clr Calc Pharmacy 31.9 ml/min; Est GFR (African American) 54.3; Est GFR (Non-African American) 46.9; Potassium 3.7 mmol/L (3.5-5.1)
[2019-05-30] MEDS: CIPROFLOXACIN 400 MG/200 ML BAG IV SCH ×2 (12:13→23:46)
--- NOTE | 2019-05-30 18:46 | Hospitalist Progress Note ---
Date of Service May 30, 2019 Assessment & Plan (1) GI bleed: Presented with fresh blood per rectum. CT demonstrated diverticulosis. GI consulted. Hgb 12.0 --> 8.6. No indication for transfusion at this time per guidelines. Continue to monitor H/H. Consider colonoscopy after resolution of diverticulitis. (2) Diverticulitis: CT demonstrated sigmoid diverticulitis, no apparent abscess / perforation. Continue IV antibiotics. (3) Syncope: Syncopal episode while sitting on toilet. Possible contributing factors: vasovagal episode, orthostatic hypotension, aortic stenosis. Maintain adequate intravascular volume. Continue telemetry. (4) CAD (coronary artery disease): No anginal symptoms. (5) Aortic stenosis: Syncopal episode in setting of GI bleed. Maintain adequate intravascular volume. (6) Combined systolic and diastolic congestive heart failure: Chronic combined left ventricular systolic and diastolic heart failure. Has a few bibasilar rales. Check chest x-ray in a.m. (7) Hypertension: Monitor hemodynamics closely in setting of GI bleed and aortic stenosis. (8) CKD (chronic kidney disease), stage III: Serum creatinine at time of admission 1.23. Creatinine today = 1.11. Follow. (9) Hypothyroidism: Continue thyroid replacement. (10) DVT prophylaxis: No anticoagulants due to GI bleed. SCD's. Ambulate. (11) Discharge planning issues: Anticipated discharge to home. Family Medicine follow-up with Dr. Nation. Subjective Recheck for GI bleeding and other problems. Patient seen in their room around 15:20. Ongoing rectal bleeding, but not as frequent or severe. No fever. No abdominal pain, nausea, vomiting. No further syncopal episodes. Review of Systems: Constitutional- no fever. Cardiac- no chest pain. Pulmonary- no cough or SOB. GI- as noted above. - no urinary symptoms. Otherwise, as noted above. Physical Exam Constitutional: no acute distress Respiratory: no respiratory distress Auscultation: + rales (bibasilar) Cardiovascular: Rate/Rhythm: regular rate and regular rhythm Heart Sounds: + murmur (IV/ sys murmur at base); no gallop and no cardiac rub Vessels: no JVD Extremities: no calf tenderness and no edema Gastrointestinal (Abdomen): normal bowel sounds, soft, nontender, no hepatosplenomegaly Skin: no rashes, warm and dry Psychiatric: Orientation: alert and oriented x 3 Results & Data Vital Signs (Past 12 Hours) Vital Signs Temp Pulse Pulse Resp BP Pulse Ox 05/30/19 15:16 73 05/30/19 15:02 36.6 C 20 110/60 98 05/30/19 11:29 36.6 C 66 18 116/67 100 05/30/19 07:40 36.6 C 70 80 18 134/69 100 Laboratory Results Laboratory Results - last 24 hr 05/29/19 05/30/19 05/30/19 20:44 06:30 06:30 WBC 7.60 RBC 3.22 L Hgb 8.5 L 8.6 L Hct 25.9 L MCV 80.4 MCH 26.7 MCHC 33.2 RDW Std Deviation 44.2 RDW Coeff of Yvonne 15.0 H Plt Count 196 MPV 10.6 H Sodium 141 Potassium 3.7 Chloride 111 H Carbon Dioxide 24 Anion Gap 6.0 BUN 13 Creatinine 1.11 Est Cr Clr Drug Dosing 31.9 Est GFR ( Amer) 54.3 Est GFR (Non-Af Amer) 46.9 BUN/Creatinine Ratio 11.3 Glucose 102 H Calcium 7.9 L (1) GI bleed GI bleed type/associated pathology: unspecified gastrointestinal hemorrhage type Qualified Code(s): K92.2 - Gastrointestinal hemorrhage, unspecified
[2019-05-31] MEDS: metroNIDAZOLE 500 MG/100 ML BAG IV SCH (01:54)
[2019-05-31 06:27] LABS: Hematocrit (blood only) 24.3 % (37-47); Hemoglobin 8.2 g/dL (12.0-16.0); Mean Corpuscular Hgb Conc 33.7 g/dL (32-36); Mean Corpuscular Volume 79.9 fL (80-100); Mean Platelet Volume 10.7 fL (7.4-10.4); Platelet Count 190 K/uL (130-400); RDW Standard Deviation 43.7 fL (36.4-46.3); Red Blood Count 3.04 M/uL (4.2-5.4); White Blood Count 7.34 K/uL (4.8-10.8)
[2019-05-31] MEDS ORDERED: ARMOUR THYROID 30 MG TAB PO SCH (06:30)
[2019-05-31 07:00] LABS: BUN Creatinine Ratio 8.8 (10-20); Creatinine Clr Calc Pharmacy 33.9 ml/min; Est GFR (African American) 58.1; Est GFR (Non-African American) 50.1; Potassium 3.8 mmol/L (3.5-5.1)
--- NOTE | 2019-05-31 07:33 | XRay Report ---
XR chest 1V portable CLINICAL HISTORY: CHF COMPARISON STUDY: Chest radiograph January 08, 2018 FINDINGS: There is no pneumothorax. There may be a trace right pleural effusion. Moderate size hiatal hernia is noted. Cardiomediastinal silhouette is unremarkable. There is no evidence for pulmonary ed migel. A 1.3 cm nodular opacity within the right midlung is noted. This is likely artifactual. IMPRESSION: 1. 1.3 cm nodular right midlung opacity. This is likely artifactual however a chest CT is recommended to exclude a pulmonary nodule. 2. No evidence for pulmonary edema. 3. Trace right pleural effusion. Electronically signed by: Mati Hendricks M.D. 05/31/2019 7:31 AM
[2019-05-31] MEDS: metroNIDAZOLE 500 MG TAB PO SCH ×3 (08:31→21:46)
--- NOTE | 2019-05-31 11:18 | Hospitalist Progress Note ---
Date of Service May 31, 2019 Assessment & Plan (1) GI bleed: Presented with fresh blood per rectum. -CT demonstrated diverticulosis. -H & H monitoring. Hb 9.1 -No more episodes of active bleeding -Monitor H & H (2) Diverticulitis: Clinically improving - Afebrile, no leucocytosis -Diet just changed to regular - tolerating it well so far -On Ciprofloxacin, Flagyl - Day 3 -Work up - CT demonstrated sigmoid diverticulitis, no apparent abscess / perforation. -Colonoscopy after resolution of diverticulitis. (3) Pulmonary nodule: CXR - 1.3 cm nodular right midlung opacity noted on x ray, likely an artifact -CT chest recommended to exclude pulmonary nodule. (4) Syncope: -Syncopal episode while sitting on toilet. -Possible contributing factors: vasovagal episode, orthostatic hypotension, aortic stenosis. -IV Fluids -Tele- No events (5) CAD (coronary artery disease): -No anginal symptoms. (6) Aortic stenosis: -Syncopal episode in setting of GI bleed. -Maintain adequate intravascular volume. -Tele monitor- No events (7) Combined systolic and diastolic congestive heart failure: -Chronic combined left ventricular systolic and diastolic heart failure. -CXR done today due to rales heard - No pulmonary edema. (8) Hypertension: -Stable -Continue with Toprol XL 25 mg q HS (9) CKD (chronic kidney disease), stage III: Serum creatinine at time of admission 1.23. -Stable (10) Hypothyroidism: -Continue thyroid replacement. (11) DVT prophylaxis: No anticoagulants due to GI bleed. SCD's. Ambulate. (12) Discharge planning issues: -Anticipated discharge to home. -Family Medicine follow-up with Dr. Nation. Subjective Pt is feeling well today. Having her lunch and enjoying it with no c/o abdominal pain, nausea, vomiting, Had a BM today AM. No diarrhea. No fever, chills. Tele- No events Physical Exam Physical Exam: GENERAL- AAOX3, No acute distress LUNGS- Air entry bilaterally equal. No rales, rhonchi, crackles, wheezes heard. HEART- Regular rate and rhythm. Murmur + ABDOMEN- Soft, non tender, non distended, Bowel sounds heard. EXTREMITIES- Good peripheral pulses, no edema Results & Data Vital Signs (Past 12 Hours) Vital Signs Temp Pulse Pulse Resp BP BP Pulse Ox 05/31/19 10:52 37.1 C 18 99 05/31/19 07:25 67 05/31/19 06:52 36.5 C 69 20 103/59 L 98 05/31/19 03:51 36.6 C 71 20 104/61 97 05/31/19 00:27 102 H 93/51 L 05/30/19 23:34 36.4 C L 103 H 20 128/72 96 (1) GI bleed GI bleed type/associated pathology: unspecified gastrointestinal hemorrhage type Qualified Code(s): K92.2 - Gastrointestinal hemorrhage, unspecified
--- NOTE | 2019-05-31 11:57 | Gastroenterology Progress Note ---
Date of Service May 31, 2019 Assessment & Plan (1) Diverticulitis: Pt is a 78 y/o female presented w hx of ischemic cardiomyopathy, presented w presyncopal episode, abd pain, BRBPR, CT evidence of sigmoid diverticulitis though wonder if she may ischemic colitis instead. She is clinically improving, H/H stable for days. - Continue Cipro/Flagyl x 7 days total - Advance diet as tolerated - GI to sign off, will plan to schedule colonoscopy 4-6 weeks Attg add: I interviewed and examined pt, reviewed chart and labs. Pt currently without complaint - no further rectal bleeding. I suspect that she had LGIB, and scondary ischemic colitis rather than tic-itis. Regardless, please adv diet as pepe, complete 7 days of abx (may be given oral). Will set up oupt csocpy in 4-5 weeks. Please call with questions. (2) BRBPR (bright red blood per rectum): (3) Aortic stenosis: (4) Combined systolic and diastolic congestive heart failure: Subjective Pt reports feeling well, denies anymore abd pain, n/v. Dislikes [place] diet, would like to try solids. Having BMs but no blood visible anymore. H/H been stable for a few days now. Review of Systems Review of Systems: All systems reviewed & are unremarkable except as noted in HPI & below Physical Exam Constitutional: WD/WN, vitals as above well groomed, cooperative and comfortable Eyes: PERRL, conjunctivae normal, anicteric sclerae ENMT: external ear and nose normal, oropharynx normal Respiratory: normal respiratory effort, lungs clear to auscultation Cardiovascular: Rate/Rhythm: regular rate and regular rhythm Heart Sounds: + murmur Gastrointestinal (Abdomen): normal bowel sounds, soft, nontender, no hepatosplenomegaly Skin: no rashes, warm and dry no jaundice Neurologic: Motor/Sensory: no asterixis Psychiatric: A+Ox3, euthymic affect Lymphatic: no lymphedema Results & Data Vital Signs (Past 12 Hours) Vital Signs Temp Pulse Pulse Resp BP BP Pulse Ox 05/31/19 10:52 37.1 C 18 99 05/31/19 07:25 67 05/31/19 06:52 36.5 C 69 20 103/59 L 98 05/31/19 03:51 36.6 C 71 20 104/61 97 05/31/19 00:27 102 H 93/51 L
[2019-05-31] MEDS: CIPROFLOXACIN 500 MG TAB PO SCH (17:41)
[2019-06-01] MEDS: ARMOUR THYROID 30 MG TAB PO SCH (05:30)
[2019-06-01 06:25] LABS: Creatinine Clr Calc Pharmacy 32.4 ml/min; Est GFR (African American) 54.9; Est GFR (Non-African American) 47.4
[2019-06-01] MEDS: CIPROFLOXACIN 500 MG TAB PO SCH (08:24)
[2019-06-01] MEDS: metroNIDAZOLE 500 MG TAB PO SCH ×2 (08:24→14:17)
--- NOTE | 2019-06-01 12:28 | Hospitalist Progress Note ---
Date of Service June 01, 2019 Assessment & Plan (1) GI bleed: Presented with fresh blood per rectum. -CT demonstrated diverticulosis. -H & H monitoring. Hb 8.2 -No more episodes of active bleedinge ACUTE BLOOD LOSS ANEMIA Secondary to GI bleeding - H & H - 8.2 down from 10 range - Monitor H & H outpatient (2) Diverticulitis: Clinically improved - Afebrile, no leucocytosis and tolerating diet well -On Ciprofloxacin, Flagyl - Day 01/31 -Work up - CT demonstrated sigmoid diverticulitis, no apparent abscess / perforation. -Colonoscopy after resolution of diverticulitis outpatient -GI signed off. (3) Pulmonary nodule: CXR - 1.3 cm nodular right midlung opacity noted on x ray, likely an artifact -Outpatient CT chest recommended to exclude pulmonary nodule. (4) Syncope: -Syncopal episode while sitting on toilet while in ED. No more episodes since hospitalized. -Possible contributing factors: vasovagal episode, orthostatic hypotension, aortic stenosis. -S/P IV Fluids -Tele- No events (5) CAD (coronary artery disease): -No anginal symptoms. (6) Aortic stenosis: -Syncopal episode in setting of GI bleed. -Maintain adequate intravascular volume. -Tele monitor- No events (7) Combined systolic and diastolic congestive heart failure: -Chronic combined left ventricular systolic and diastolic heart failure. -CXR done on 05/31 due to rales heard - No pulmonary edema. (8) Hypertension: -Stable -Continue with Toprol XL 25 mg q HS (9) CKD (chronic kidney disease), stage III: Serum creatinine at time of admission 1.23. -Stable (10) Hypothyroidism: -Continue thyroid replacement. (11) DVT prophylaxis: No anticoagulants due to GI bleed. SCD's. Ambulate. (12) Discharge planning issues: -Eager to be discharged home -PT/OT recommends using walker which she has at home and home PT/OT services -Family Medicine follow-up with Dr. Nation. Okay to discharge home today Subjective Pt is feeling well today and eager to be discharged. Tolerating PO diet well without c/o abdominal pain, nausea, vomiting, No diarrhea, nausea, vomiting No fever, chills. Physical Exam Physical Exam: GENERAL- AAOX3, No acute distress LUNGS- Air entry bilaterally equal. No rales, rhonchi, crackles, wheezes heard. HEART- Regular rate and rhythm. Murmur + ABDOMEN- Soft, non tender, non distended, Bowel sounds heard. EXTREMITIES- Good peripheral pulses, no edema Results & Data Vital Signs (Past 12 Hours) Vital Signs Temp Pulse Resp BP Pulse Ox 06/01/19 10:55 98 06/01/19 06:55 36.8 C 68 18 105/58 L 98 (1) GI bleed GI bleed type/associated pathology: unspecified gastrointestinal hemorrhage type Qualified Code(s): K92.2 - Gastrointestinal hemorrhage, unspecified
--- NOTE | 2019-06-01 12:33 | Discharge Summary ---
Date of Service June 01, 2019 Admission HPI Per Admitting Provider This is a 78-year-old female who has a significant past medical history of ischemic cardiomyopathy secondary to CAD with combined systolic and diastolic CHF EF 40 to 45%, paroxysmal atrial tachycardia, severe aortic stenosis, HTN, CKD stage III, GERD, MARY who presents to [facility] ED secondary to bright red blood per rectum x1 day. Patient states this morning she woke up and had a BM and had bright red blood, "everywhere." She filled a whole toilet bowl with bright red blood. She had 3-4 additional loose bowel movements with blood noted in each. She complains of left lower quadrant abdominal pain that has been present for a few days, but she is unsure how long its been there. Further she admits to nausea and decreased appetite starting last night. She denies any fever, chills, sweats, lightheadedness, dizziness, syncope, headache chest pain, shortness breath, palpitations, emesis, dysuria, hematuria, increased urgency or frequency with urination. She states she has a history of diverticulitis in the past which presented similarly. Patient presented to PCP office today and was seen by REGULO Goode who recommended urgent ER eval. Further it was noted she had about a fall appro ximately 1 week ago when hit the back of her head, due to losing balance. She did not seek medical attention at the time. Also elicited an outpatient PCP note is that patient was hospitalized at [facility] a couple years ago secondary to anemia requiring blood transfusions. Pt further elicits to me, "I have a valve problem and I think I'm going to be getting surgery soon." Addendum at 1900: Summoned by ED provider and nursing staff as patient became unresponsive while on toilet. She had a large BM with significant bright red blood. Patient's blood pressure systolically in the 80s. Return to bed in Trendelenburg position. Bolus of IVF was started and her blood pressure improved to systolically 110. Overall patient states "I feel like crap." Complains of overall feeling lightheaded, dizzy and nauseated. "I think those antibiotics made sick in the stomach." She denies any chest pain, palpitations, shortness of breath. Continues with mild left lower quadrant abdominal pain. Repeat CBC reveals hemoglobin 10.7 and hematocrit 32.3, W BC 12.95 Repeat EKG reveals normal sinus rhythm with heart rate 71, unchanged from prior. Principal Diagnosis 1. Acute diverticulitis 2. Acute GI bleeding likely secondary to diverticulitis 3. Acute blood loss anemia secondary to above 4. Syncopal episode likely vasovagal 5. Coincidental finding of possible pulmonary nodule on chest x-ray Secondary diagnoses on discharge 1. Coronary artery disease 2. Aortic stenosis 3. Combined systolic and diastolic congestive heart failure 4. Hypertension 5. CKD stage III 6. Hypothyroidism Discharge Exam GENERAL- AAOX3, No acute distress LUNGS- Air entry bilaterally equal. No rales, rhonchi, crackles, wheezes heard. HEART- Regular rate and rhythm. Murmur + ABDOMEN- Soft, non tender, non distended, Bowel sounds heard. EXTREMITIES- Good peripheral pulses, no edema Discharge Data Allergies Allergy/AdvReac Type Severity Reaction Status Date / Time clopidogrel Allergy Mild RASH Verified 05/28/19 14:00 Penicillins Allergy Mild RASH Verified 05/28/19 14:00 tetracycline Allergy Mild UNKNOWN Verified 05/28/19 14:00 ranitidine AdvReac Intermediate PALPITATION Verified 05/28/19 14:00 S lisinopril AdvReac Unknown DRY COUGH Verified 05/28/19 14:00 Consultations 05/28/19 18:03 ED Decision to Admit Stat 05/28/19 20:28 Consult Case Management - Discharge Planning Routine Consult Gastroenterology Routine Ordered Studies 05/28/19 13:35 CT abd pelvis IV con only Stat 05/28/19 16:37 CT head/brain wo con Stat Hospital Course (1) GI bleed: Presented with fresh blood per rectum. -CT demonstrated diverticulosis. -H & H monitoring. Hb 8.2 -No more episodes of active bleedinge ACUTE BLOOD LOSS ANEMIA Secondary to GI bleeding - H & H - 8.2 down from 10 range - Monitor H & H outpatient (2) Diverticulitis: Clinically improved - Afebrile, no leucocytosis and tolerating diet well -On Ciprofloxacin, Flagyl - Day 4/7 -Work up - CT demonstrated sigmoid diverticulitis, no apparent abscess / perforation. -Colonoscopy after resolution of diverticulitis outpatient -GI signed off. (3) Pulmonary nodule: CXR - 1.3 cm nodular right midlung opacity noted on x ray, likely an artifact -Outpatient CT chest recommended to exclude pulmonary nodule. (4) Syncope: -Syncopal episode while sitting on toilet while in ED. No more episodes since hospitalized. -Possible contributing factors: vasovagal episode, orthostatic hypotension, aortic stenosis. -S/P IV Fluids -Tele- No events (5) CAD (coronary artery disease): -No anginal symptoms. (6) Aortic stenosis: -Syncopal episode in setting of GI bleed. -Maintain adequate intravascular volume. -Tele monitor- No events (7) Combined systolic and diastolic congestive heart failure: -Chronic combined left ventricular systolic and diastolic heart failure. -CXR done on 05/31 due to rales heard - No pulmonary edema. (8) Hypertension: -Borderline low even while being off losartan since admission. Will discontinue losartan on discharge as well. -Continue with Toprol XL 25 mg q HS -Monitor BP closely outpatient with changes in meds as above (9) CKD (chronic kidney disease), stage III: Serum creatinine at time of admission 1.23. -Stable (10) Hypothyroidism: -Continue thyroid replacement. (11) DVT prophylaxis: No anticoagulants due to GI bleed. SCD's. Ambulate. (12) Discharge planning issues: -Eager to be discharged home -PT/OT recommends using walker which she has at home and home PT/OT services -Family Medicine follow-up with Dr. Nation. Okay to discharge home today Total Time Total Time Spent Total Time Spent (In Minutes): 38 minutes Discharge Plan Discharge Items Patient Disposition: Home - Self-Care Reason For Visit: DIVERTICULITIS,BRBPR Discharge Diagnosis: 1. Acute diverticulitis 2. Acute GI bleeding 3. Acute blood loss secondary to above Discharge Goals: Decrease discomfort Activity: Resume your previous activity Activity Comment: Use assistive device, walker Non-emergency contact: Primary Care Provider Call non-emergency contact if: your symptoms worsen Follow-up/Referrals: Rey Nation MD [Primary Care Provider] - Diet: Low Fiber Addtl Provider Instructions: You were admitted to the hospital for acute diverticulitis, acute gastroi ntestinal bleeding secondary to diverticulitis. You were treated with IV fluids, IV antibiotics during the hospital stay. Medication changes 1. New medicationciprofloxacin and Flagyl for 4 more days to complete course of 7 days of antibiotics 2. Discontinued Losartan as your blood pressure has been on the lower side even while being off this medication You will be scheduled for colonoscopy in 4 to 5 weeks. You will get a call from gastroenterology for appointment details Recommend using walker assistance for walking. Recommend outpatient physical therapy Prescriptions: New metronidazole 500 mg Tablet 500 mg PO TID 4 Days Qty: 12 RF: 0 ciprofloxacin HCl 500 mg Tablet 500 mg PO BID 4 Days Qty: 8 RF: 0 Continued metoprolol succinate 25 mg Tablet Extended Release 24 Hr 25 mg PO HS RF: 0 thyroid (pork) [[place] Thyroid] 30 mg Tablet 30 mg PO 4XWK RF: 0 thyroid (pork) [[place] Thyroid] 60 mg Tablet 60 mg PO 3XWK RF: 0 omega-3 fatty acids [Fish Oil Concentrate] 1,000 mg Capsule 1,000 mg PO DAILY RF: 0 magnesium oxide 400 mg magnesium Capsule 400 mg PO DAILY RF: 0 coenzyme Q10 100 mg Tablet 100 mg PO DAILY RF: 0 Discontinued losartan 25 mg Tablet 12.5 mg PO QAM RF: 0 Stand-Alone Forms: [facility]/Other Patient Handouts: Diverticulitis Dc Discharge Orders: Discharge Order (Routine); Ordered 06/01/19 Ordered By: Kathe Ching Admission Data Admit Date/Time: 05/28/19 18:36 Attending Provider: Kathe Ching Admit Provider: Seema Rutherford Primary Care Provider: Rey Nation Other Providers: Seema Rutherford ; Melissa Jj Service: Medical
== END 2019-06-01 14:36 | disposition home health service (06) | DRG 378 ==
LOC: ED 12:51 → SUATTDRO 18:36 → 2S 18:36 → 3E 05-31 14:46

== ENCOUNTER 2020-04-04 16:57 | Inpatient (IN) ==
[2020-04-04] MEDS ORDERED: LIDOCAINE 5% 1 PATCH TD STA (17:19)
[2020-04-04] MEDS ORDERED: ACETAMINOPHEN 500 MG TAB PO STA (17:19)
--- NOTE | 2020-04-04 18:08 | CT Scan Report ---
HEAD CT NONCONTRAST CT DOSE: 2331.15 mGy.cm HISTORY: pain fall TECHNIQUE: Multiaxial CT images of the head were performed without the use of intravenous contrast. A utomated exposure control was utilized for this study. A dose lowering technique was utilized adheri ng to the principles of ALARA. Comparison: Head CT 03/04/2020. Findings: The paranasal sinuses and mastoid air cells are clear. The calvarium and skull base are int act. There is no mass, hematoma, midline shift, acute infarct. White matter hypodensity is nonspecifi c but suggestive of microvascular ischemic change. The ventricles and sulci demonstrate mild age-rela jamaal involutional changes. Old punctate lacunar infarct within the right cerebellar hemisphere. Impression: No significant change compared to the prior study. No acute intracranial abnormality. ACT 112: Negative or not required by law. Electronically signed by: Tor Watt M.D. 04/04/2020 6:07 PM
--- NOTE | 2020-04-04 18:13 | CT Scan Report ---
CERVICAL SPINE CT CT DOSE: HISTORY: pain fall TECHNIQUE: Multiaxial CT images of the cervical spine were performed and reformatted in the sagittal and coronal plane without the use of contrast. A dose lowering technique was utilized adhering to e principles of ALARA. COMPARISON: Cervical spine CT 03/04/2020. FINDINGS: No fractures. No subluxation. Prevertebral soft tissues and the C1-C2 interval are intact. No pneumothorax. Mild to moderate degenerative changes seen within the cervical spine. IMPRESSION: No fractures within the cervical spine. ACT 112: Negative or not required by law. Electronically signed by: Tor Watt M.D. 04/04/2020 6:12 PM
--- NOTE | 2020-04-04 18:30 | CT Scan Report ---
CT chest wo con, CT abd pelvis wo con CT DOSE: HISTORY: pain fall TECHNIQUE: Multiaxial CT images of the chest, abdomen, pelvis were performed without contrast. A dos e lowering technique was utilized adhering to the principles of ALARA. COMPARISON: Chest CT 07/25/2019. Abdomen and pelvis CT 05/28/2019. FINDINGS: Chest CT: No pneumothorax. No pleural effusions. Diffuse chronic interstitial thickening most pronoun antione at the lung bases. Possible 7 mm nodule within the right lower lobe in image 172. However, this c ould be due to to the interstitial change. The central airways are patent. Acute nondisplaced right p osterior sixth rib fracture. Moderate to large hiatus hernia, unchanged. There are a few old left-andres ed rib fractures. Moderate calcified plaque within the coronary arteries. The heart is mildly enlarge d. A few prominent mediastinal lymph nodes, unchanged. No definite hilar lymphadenopathy. The esophag us is normal in caliber. No used on a hematoma. Evaluation for mediastinal injury is limited due to l ack of intravenous contrast. However, the thoracic aorta appears to be normal and course and caliber. There is mild calcified plaque within the thoracic aorta. Abdomen/pelvis CT: No pneumoperitoneum. No pneumatosis. No acute fractures within the visualized osse ous structures. The unenhanced liver, gallbladder, pancreas, spleen, and adrenal glands are unremarka ble. Punctate nonobstructing stone within the right kidney. No ureteral stones. No hydronephrosis. No rmal bladder. The uterus is surgically absent. There are few bilateral renal hypodense lesions with t he largest in the upper pole of the right kidney measuring 4 cm. These are technically too small to c haracterize but favor cysts. These are similar to the prior study. No retroperitoneal lymphadenopathy or retroperitoneal hematoma. Colonic diverticulosis. No evidence for diverticulitis. Suboptimal eval uation for bowel pathology due to the lack of intravenous and oral contrast. However, there is no def inite bowel wall thickening or obstruction. Normal appendix. IMPRESSION: 1. Nondisplaced right posterior sixth rib fracture. No pneumothorax. 2. Possible 7 mm nodule within the right lower lobe. However, this could represent confluence of the diffuse interstitial thickening. 3. No acute abnormality within the abdomen or pelvis. 4. Additional findings as described above. Please refer to below summary of Fleischner criteria recommendations for follow-up of incidental CT n odules (H [place], Guidelines for management of small pulmonary nodules detected on CT scans: A sta tement from the Fleischner Society, Radiology 237: [phone].) SOLID NODULES Solitary nodule size: <6 mm * Low risk patients: no follow-up needed * high risk patients: optional CT at 12 months Solitary nodule size: 6-8 mm * Low risk patients: follow-up at 6-12 months, then consider further follow-up at 18-24 months * high risk patients: initial follow-up CT at 6-12 months and then at 18-24 months if no change Solitary nodule size: >8 mm * either low or high risk patients - consider follow-up CT at 3 months, and/or CT-PET, and/or biopsy Multiple nodules size: <6 mm * Low risk patients: no routine follow-up * high risk patients: optional CT at 12 months Multiple nodules size: 6-8 mm * Low risk patients: follow-up at 3-6 months, then consider further follow-up at 18-24 months * high risk patients: follow-up at 3-6 months, then at 18-24 months if no change Multiple nodules size: >8 mm * Low risk patients: follow-up at 3-6 months, then consider further follow-up at 18-24 months * high risk patients: follow-up at 3-6 months, then at 18-24 months if no change Note: newly detected indeterminate nodule in persons 35 years of age or older. * Low risk patients: minimal or absent history of smoking and/or other known risk factors * high risk patients: history of smoking or of other known risk factors (e.g. first degree relative with lung cancer, or exposure to asbestos, radon, uranium) * if a nodule up to 8 mm is partly solid or is ground glass further follow-up is required after 24 m onths to exclude possible slow growing adenocarcinoma ([place]) SUBSOLID NODULES Solitary pure ground-glass nodule * nodule size <6 mm - no CT follow-up required * nodule size >=6 mm - follow-up CT at 6-12 months, then every 2 years until 5 years Solitary part-solid nodule * nodule size <6 mm - no CT follow-up required * nodule size >=6 mm - follow-up CT at 3-6 months. If unchanged, and solid component remains <6 mm, then annual follow-up for 5 years Multiple subsolid nodules * nodule size <6 mm - follow-up CT at 3-6 months, consider further follow-up at 2 and 4 years if sta ble * nodule size >=6 mm - follow-up CT at 3-6 months, subsequent management based on the most suspiciou s nodule(s) ACT 112: Negative or not required by law. Electronically signed by: Tor Watt M.D. 04/04/2020 6:28 PM
[2020-04-04] MEDS ORDERED: OXYCODONE HCL IR 5 MG TAB (IMMEDIATE RELEASE) PO STA (21:13)
[2020-04-04] MEDS ORDERED: METOPROLOL SUCC 25MG EXT REL TAB PO STA (22:15)
--- NOTE | 2020-04-04 22:26 | History & Physical Report ---
Date of Service April 04, 2020 Assessment & Plan (1) Recurrent falls: Pt is 79 y/o F with PMH CAD s/p stent, aortic stenosis, chronic systolic and diastolic heart failure, HTN, dyslipidemia, CKD III, GERD, iron deficiency anemia, hypothyroidism presented to ER with complaint of fall. Pt with h/o recurrent falls at home. She denies any dizziness, CP, SOB, palpitations prior to falls. Had fall today prompting ER visit. In ER pt is afebrile, P: 60, BP: 186/100 down to 165/86, 99% on RA CT Chest: nondisplaced fracture of right 6th rib. No pneumothorax. Negative CT head and C-spine for fracture and no acute findings on CT abd/pelvis. ER was trying to have pt go to [facility] however that was unable to be accomplished tonight. -Will get baseline EKG and baseline labs -DDX: Mechanical fall versus presyncope versus arrhythmia -Obtain orthostatic vital signs -Monitor in telemetry -Fall precautions -OT/PT eval -Carotid Dopplers -Recent outpatient echo 03/24/2020: Moderate to severe aortic stenosis, EF: 47%, grade 1 diastolic dysfunction -Cardiology consult concerning severe aortic stenosis, recurrent falls (2) Closed traumatic nondisplaced fracture of rib: nondisplaced fracture of right 6th rib. No pneumothorax on CT chest -In ER given Tylenol, oxycodone 2.5 mg, Lidoderm patch -Incentive spirometry -Scheduled Tylenol, lidocaine patch, tramadol as needed (3) Aortic stenosis: outpatient echo 03/24/2020: Moderate to severe aortic stenosis, EF: 47%, grade 1 diastolic dysfunction (4) History of paroxysmal atrial tachycardia: -Monitor on telemetry -Continue metoprolol (5) CAD (coronary artery disease): S/P stent Denies chest pain, shortness of breath -Continue metoprolol (6) Hypertension: Elevated BP noted in ER likely secondary to pain -Monitor BP closely -Continue metoprolol (7) Combined systolic and diastolic congestive heart failure: Currently appears euvolemic -Patient was previously prescribed Lasix 20 mg to take on Mondays, Wednesdays. Patient states has not been taking as it makes her urinate (8) CKD (chronic kidney disease), stage III: Baseline Cr: 1.3-1.4 -Monitor renal functions (9) Hypothyroidism: TSH: 1.6 on 11/10/2019 -Continue [place] Thyroid -Obtain TSH (10) Iron deficiency anemia: Baseline Hgb: 11.6 -Obtain CBC -Continue iron supplement DVT Prophylaxis -SCDs for now, pending labs Full Code as per discussion with pt tyron. Outpatient record reported DNR. Will need readdressed with pt tomorrow. Follows with Dr Nation for routine care Pt was seen and care coordinated with Dr Kessler. See addendum History of Present Illness Chief Complaint: Fall Primary Care Provider: Rey Nation MD Pt is 79 y/o F with PMH CAD s/p stent, aortic stenosis, chronic systolic and di astolic heart failure, HTN, dyslipidemia, CKD III, GERD, iron deficiency anemia, hypothyroidism presented to ER with complaint of fall. Patient is poor historian currently, unsure if this is secondary to pain medication patient received in ER or this is patient's baseline. Patient lives at home alone. She reports uses rolling walker or cane to ambulate. Patient reports that she has had a couple of falls out of bed. Patient also reports has falls while walking. She denies any dizziness, CP, SOB, palpitations prior to falls. Patient reports she fell today but is unable to further clarify at this time. She does not think she had lost consciousness. Pt's daughter contacted who confirms pt has recurrent falls at home and unsure of reason for falls. She reports today pt reported fell in bathroom and was able to crawl and call neighbor for help. Patient reports chronic bilateral knee pain denies any increased pain. Reports posterior neck pain and pain to right posterior rib aggravated with movement and deep breathing. Patient denies any other pain in chest, upper extremity pain or other lower extremity pain. Patient reports chronic intermittent pains to abdomen denies any pain currently. Reports often has daily headaches at home. Denies any current headache. Patient does report she feels a little loopy after receiving pain medicine in ER. Denies fever/chills, diaphoresis, N/V/D/C, vision changes, cough, paresthesias, extremity edema, rashes, urinary symptoms. In ER pt had imaging revealing nondisplaced fracture of right 6th rib. No pneumothorax. Negative CT head and C-spine for fracture and no acute findings on CT abd/pelvis. ER was trying to have pt go to [facility] however that was unable to be accomplished tonight. Allergies Allergy/AdvReac Type Severity Reaction Status Date / Time clopidogrel Allergy Mild RASH Verified 04/04/20 18:30 Penicillins Allergy Mild RASH Verified 04/04/20 18:30 tetracycline Allergy Mild UNKNOWN Verified 04/04/20 18:30 ranitidine AdvReac Intermediate PALPITATION Verified 04/04/20 18:30 S lisinopril AdvReac Unknown DRY COUGH Verified 04/04/20 18:30 Home Medications Home Medications Medication Instructions Recorded Confirmed Type coenzyme Q10 100 mg PO DAILY 05/28/19 04/04/20 History metoprolol succinate 25 mg PO HS 05/28/19 04/04/20 History omega-3 fatty acids [Fish Oil 1,000 mg PO DAILY 05/28/19 04/04/20 History Concentrate] thyroid (pork) [[place] Thyroid] 60 mg PO 3XWK 05/28/19 04/04/20 History cholecalciferol (vitamin D3) 1,000 unit PO DAILY 07/25/19 04/04/20 History ferrous sulfate [iron] 325 mg PO DAILY 07/25/19 04/04/20 History thyroid (pork) [[place] Thyroid] 30 mg PO 4XWK 07/25/19 04/04/20 History furosemide [Lasix] 20 mg PO UD 04/04/20 04/04/20 History loratadine 10 mg PO DAILY 04/04/20 04/04/20 History magnesium oxide 400 mg PO DAILY 04/04/20 04/04/20 History Past Med/Surg History Medical History Aortic stenosis (Chronic) CAD (coronary artery disease) (Chronic) "s/p stents in 2012" Chronic systolic heart failure (Chronic) CKD (chronic kidney disease), stage III (Chronic) 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) Gastric ulcer (Chronic) GERD (gastroesophageal reflux disease) (Chronic) History of paroxysmal atrial tachycardia Hypertension (Chronic) Hypothyroidism (Chronic) Iron deficiency anemia Ischemic cardiomyopathy (Chronic) Surgical History H/O: hysterectomy (Chronic) S/P angioplasty with stent (Chronic) "06/2013- drug eluting stent to LAD 04/2015- drug eluting stent to ostial RCA" S/P BSO (bilateral salpingo-oophorectomy) (Chronic) S/P TKR (total knee replacement) (Chronic) S/P tonsillectomy and adenoidectomy (Chronic) Family History Father , 73 No problems noted. Mother , 73 Kidney disease Coronary heart disease Cancer Kidney Diabetes Sister , 62 Colorectal cancer Social History Preferred Language: Italian Communication Ability: Effective Scientific Informatics Analyst Required: No Beliefs That Will Affect Care: None marital status: Current Living Situation: Alone current occupational status: retired other: Ambulates with cane Feels Safe at Home: Yes Smoking Status: Never smoker Second Hand Exposure: No ; Hx Alcohol Use: No Hx Substance Use: No Review of Systems Review of Systems: All systems reviewed & are unremarkable except as noted in HPI & below Physical Exam Physical Exam: General: no distress, WDWN Head: normocephalic, atraumatic Eyes: EOM's intact, conjunctiva non-injected, anicteric ENT: normal inspection external ears, nose, mucous membranes moist Neck: supple, trachea midline, +tenderness to palpation lower c-spine without palpable abnormality, pt with active ROM of neck Lungs: clear, no respiratory distress, no wheezing/rhonchi/rales Thorax: no discoloration or ecchymosis; +tenderness to palpation right posterior rib cage CV: RRR, +systolic murmur, no pretibial edema Abd: normal BS, soft, non-tender Ext: no cyanosis, no calf tenderness; active ROM of arms and legs, distal pulses intact Neuro: Alert, oriented to person, place, month and year, no focal deficits noted, normal affect Skin: warm, dry Results & Data Results & Data ([facility]) Vital Signs (Past 12 Hours) Vital Signs Temp Pulse Pulse Resp BP BP Pulse Ox 04/04/20 21:56 72 20 163/70 H 100 04/04/20 20:03 79 20 165/86 H 100 04/04/20 19:19 86 20 156/79 H 99 04/04/20 17:30 77 20 179/78 H 99 04/04/20 17:09 36.7 C 60 16 186/100 H 99 04/04/20 17:02 80 22 186/100 [address] HEAD: Impression: No significant change compared to the prior study. No acute intracranial abnormality. CT C-SPINE: IMPRESSION: No fractures within the cervical spine. CT CHEST: IMPRESSION: 1. Nondisplaced right posterior sixth rib fracture. No pneumothorax. 2. Possible 7 mm nodule within the right lower lobe. However, this could represent confluence of the diffuse interstitial thickening. 3. No acute abnormality within the abdomen or pelvis. 4. Additional findings as described above. CT ABD/PELVIS: IMPRESSION: 1. Nondisplaced right posterior sixth rib fracture. No pneumothorax. 2. Possible 7 mm nodule within the right lower lobe. However, this could represent confluence of the diffuse interstitial thickening. 3. No acute abnormality within the abdomen or pelvis. 4. Additional findings as described above. Code Status & VTE Plan VTE Prophylaxis Plan VTE Prophylaxis will be ordered: Yes Supervising Physician Co-Signing Physician Notes please refer to supplemental note Migel Kessler MD
--- NOTE | 2020-04-04 22:56 | Communication Note ---
Date of Service: April 04, 2020 Attending Addendum: care coordinated with BACILIO Baugh please refer to her notes for full details, I agree with her notes patient seen and examined, records reviewed by myself as well on exam, patient seen resting in bed, comfortable, not in distress, awake and alert oriented x2, answers most questions appropriately, but occasionally gets forgetful Of note she has received oxycodone prior to my interview Per patient she does not recall what happened this evening, but does report that she has been falling a lot lately,when she is getting out of her bed, or when she is walking around in her apartment Informant patient's daughter Aaliyah and ER physician, patient had apparently fallen while in the bathroom today, it is unclear whether she slipped or whether she felt lightheaded/dizzy She was able to crawl to her bedroom, and call for help, neighbors called 911 On exam, the patient was not in distress, but does report moderate pain on her right upper back, worse with movement and also on her posterior neck region Denies shoulder pain, can move shoulder fully Denies active shortness of breath, chest pain, headache, dizziness, abdominal pain, nausea no other symptoms VS noted and reviewed oriented x 2, not in distress, speaks in sentences with no effort nor accessory muscle use normal rate, regular rhythm, positive grade 4/6 to 5/6 holosystolic murmur clear breath sounds bilaterally, no hematoma/erythema, positive mild tenderness in the right upper back area non distended, soft, nontender no bipedal edema, erythema, warmth Oriented x2 occasionally forgetful, cranial through 12 grossly intact, strength 5/5 sensation 100%, no other focal gross neuro deficits Labs are pending for today CT head no acute process CT cervical spine no acute process CT chest positive right posterior rib #6 fracture acute nondisplaced EKG sinus rhythm, heart rate 60, no signs of acute ischemia or infarct ASSESSMENT AND PLAN 79-year-old female with history of coronary disease, status post stent placement, ischemic cardiomyopathy, combined systolic and diastolic CHF, severe aortic stenosis Paroxysmal atrial tachycardia, and other problems noted on BACILIO Baugh notes presenting with recurrent falls. Status post recurrent falls Mechanical versus presyncope, possible cardiogenic etiology In the setting of severe aortic stenosis, history of paroxysmal atrial tachycardia --Check orthostatic vital signs Echocardiogram performed on March 24, 2020 showed normal LV chamber size with mild concentric LVH, ejection fraction of 47%, Large apical, septal anteroseptal wall motion abnormality with hypokinesis to akinesis of the segments Grade 1 diastolic dysfunction Moderate to severe aortic stenosis labs pending-we will follow-up, monitor on telemetry unit --Identification Technician consulted Posterior right rib #6 fracture --Status post fall as noted above --Pain control with scheduled Tylenol, PRN tramadol, incentive spirometry Avoid narcotics as patient reports she is very sensitive to this class of medication Hypertension --Secondary to pain, will manage pain Continue metoprolol other diagnoses and plan of care as per BACILIO Kessler MD
[2020-04-04] MEDS ORDERED: TRAMADOL HCL 50 MG TABLET PO PRN (23:48)
[2020-04-04 23:59] LABS: Hematocrit (blood only) 38.2 % (37-47); Hemoglobin 12.8 g/dL (12.0-16.0); Mean Corpuscular Hemoglobin 27.3 pg (25-34); Mean Corpuscular Hgb Conc 33.5 g/dL (32-36); Mean Corpuscular Volume 81.4 fL (80-100); Mean Platelet Volume 10.6 fL (7.4-10.4); Platelet Count 207 K/uL (130-400); RDW Coefficient of Variation 17.1 % (11.5-14.5); RDW Standard Deviation 51.1 fL (36.4-46.3); Red Blood Count 4.69 M/uL (4.2-5.4); White Blood Count 10.92 K/uL (4.8-10.8)
[2020-04-05 00:13] LABS: INR 1.1 (0.9-1.1); Partial Thromboplastin Time 28.4 Seconds (21.0-31.0); Prothrombin Time 11.4 Seconds (9.0-12.0)
[2020-04-05] MEDS: ACETAMINOPHEN 500 MG TAB PO SCH ×3 (00:23→16:45)
[2020-04-05 00:36] LABS: Albumin Level 3.1 gm/dl (3.4-5.0); Calcium 8.7 mg/dl (8.5-10.1); Creatinine Clr Calc Pharmacy 27.5 ml/min; Est GFR (Non-African American) 38.8; Potassium 3.5 mmol/L (3.5-5.1)
--- NOTE | 2020-04-05 00:40 | Emergency Department Note ---
Impression & Plan Closed rib fracture, Fall ED Provider Note NAME: VIDA STONE AGE: 79 SEX: F ARRIVES VIA: Ambulance INFORMANT: Patient, ED PROVIDER(S): Chester Chisholm MD CHIEF COMPLAINT: Back pain, fall PLAN: Disposition: Admit MEDICAL DECISION MAKING: The patient is a pleasant 79 y/o woman with a pmhx of HTN, Hypothyroidism, CKD who presents to the emergency department back pain after having a fall today where she slipped on wet floor in her bathroom. She denies headstrike or LOC. She is not on blood thinners. She reports numerous repeat falls recent as she does not use her walker as she is supposed to. Denies fevers, cough, congestion, CP, SOB, n/v/d, urinary sx. On arrival the patient is uncomfortable but in NAD, AFVSS. On exam the patient has right posterior lateral CW tenderness without bony crepitus. Pelvis is stable. Hips with FROM bilaterally. No focal neuro deficients. Given unclear severity of fall in this elderly patient CT head, cs pine, chest, and abd/pelvis were performed. Isolated nondisplaced 6 posterior rib fx identified. However given patient's discomfort in what already appears to be a fall prone patient, reasonable to admit for pain control and PT/OT and placement. Placement directly from ED considered but [facility] unable to take patient tonight but could tomorrow. Thus, will admit. Patient agreeable. Case was discussed with Dr. Kessler, [facility] hospitalist, who will evaluate the patient for admission. Will defer any additional tests to admitting team. Triage Nursing notes reviewed and agree them. Prior medical records reviewed Vital Signs: reviewed and remarkable for no significant abnormalities Differential diagnosis: Fracture, subluxation, dislocation, contusion, ligamentous injury, neurovascular, compartment syndrome, rhabdomyolysis, as well as other pathologies. ER treatment provided: See below. Diagnostics interpreted by me: Cardiac Monitoring: An order for continuous cardiac monitoring was placed and demonstrated NSR, 71 bpm, no ectopy. Laboratory studies: See below Imaging studies: CERVICAL SPINE CT CT DOSE: HISTORY: pain fall TECHNIQUE: Multiaxial CT images of the cervical spine were performed and reformatted in the sagittal and coronal plane without the use of contrast. A dose lowering technique was utilized adhering to the principles of ALARA. COMPARISON: Cervical spine CT 03/04/2020. FINDINGS: No fractures. No subluxation. Prevertebral soft tissues and the C1-C2 interval are intact. No pneumothorax. Mild to moderate degenerative changes seen within the cervical spine. IMPRESSION: No fractures within the cervical spine. -- HEAD CT NONCONTRAST CT DOSE: 2331.15 mGy.cm HISTORY: pain fall TECHNIQUE: Multiaxial CT images of the head were performed without the use of intravenous contrast. Automated exposure control was utilized for this study. A dose lowering technique was utilized adhering to the principles of ALARA. Comparison: Head CT 03/04/2020. Findings: The paranasal sinuses and mastoid air cells are clear. The calvarium and skull base are intact. There is no mass, hematoma, midline shift, acute infarct. White matter hypodensity is nonspecific but suggestive of microvascular ischemic change. The ventricles and sulci demonstrate mild age-related involutional changes. Old punctate lacunar infarct within the right cerebellar hemisphere. Impression: No significant change compared to the prior study. No acute intracranial abnormality. -- CT chest wo con, CT abd pelvis wo con CT DOSE: HISTORY: pain fall TECHNIQUE: Multiaxial CT images of the chest, abdomen, pelvis were performed without contrast. A dose lowering technique was utilized adhering to the principles of ALARA. COMPARISON: Chest CT 07/25/2019. Abdomen and pelvis CT 05/28/2019. FINDINGS: Chest CT: No pneumothorax. No pleural effusions. Diffuse chronic interstitial thickening most pronounced at the lung bases. Possible 7 mm nodule within the right lower lobe in image 172. However, this could be due to to the interstitial change. The central airways are patent. Acute nondisplaced right posterior sixth rib fracture. Moderate to large hiatus hernia, unchanged. There are a few old left-sided rib fractures. Moderate calcified plaque within the coronary arteries. The heart is mildly enlarged. A few prominent mediastinal lymph nodes, unchanged. No definite hilar lymphadenopathy. The esophagus is normal in caliber. No used on a hematoma. Evaluation for mediastinal injury is limited due to lack of intravenous contrast. However, the thoracic aorta appears to be tory l and course and caliber. There is mild calcified plaque within the thoracic aorta. Abdomen/pelvis CT: No pneumoperitoneum. No pneumatosis. No acute fractures within the visualized osseous structures. The unenhanced liver, gallbladder, pancreas, spleen, and adrenal glands are unremarkable. Punctate nonobstructing stone within the right kidney. No ureteral stones. No hydronephrosis. Normal bladder. The uterus is surgically absent. There are few bilateral renal hypodense lesions with the largest in the upper pole of the right kidney measuring 4 cm. These are technically too small to characterize but favor cysts. These are similar to the prior study. No retroperitoneal lymphadenopathy or retroperitoneal hematoma. Colonic diverticulosis. No evidence for diverticulitis. Suboptimal evaluation for bowel pathology due to the lack of intravenous and oral contrast. However, there is no definite bowel wall thickening or obstruction. Normal appendix. IMPRESSION: 1. Nondisplaced right posterior sixth rib fracture. No pneumothorax. 2. Possible 7 mm nodule within the right lower lobe. However, this could represent confluence of the diffuse interstitial thickening. 3. No acute abnormality within the abdomen or pelvis. 4. Additional findings as described above. Consultation(s): Case was discussed with Dr. Kessler, [facility] hospitalist, who will evaluate the patient for admission. HPI: The patient is a pleasant 79 y/o woman with a pmhx of HTN, Hypothyroidism, CKD who presents to the emergency department back pain after having a fall today where she slipped on wet floor in her bathroom. She denies headstrike or LOC. She is not on blood thinners. She reports numerous repeat falls recent as she does not use her walker as she is supposed to. Denies fevers, cough, congestion, CP, SOB, n/v/d, urinary sx. ROS: See above HPI for pertinent positives & negatives. A total of 10 systems reviewed and were otherwise negative. PAST MEDICAL HISTORY:See Below PAST SURGICAL HISTORY:See Below FAMILY HISTORY:See Below SOCIAL HISTORY:See Below HOME MEDICATIONS:See Below ALLERGIES:See Below VITALS:See Below PHYSICAL EXAMINATION: GENERAL: Awake, alert, uncomfortable-appearing, in no distress HENT: Normocephalic, atraumatic. Oropharynx unremarkable. EYES: Normal conjunctiva. Sclera non-icteric. NECK: Supple. No nuchal rigidity. FROM. No JVD. RESPIRATORY: Clear to auscultation. CARDIAC: Regular rate, normal rhythm. Extremities warm and well perfused. Pulses equal. ABDOMEN: Soft, non-distended. No tenderness to palpation. No rebound or guarding. No masses. RECTAL: Deferred. MUSCULOSKELETAL: Chest examination reveals right posterior lateral CW tenderness without bony crepitus. Pelvis is stable. Hips with FROM bilaterally. The back is symmetrical on inspection without obvious abnormality. No joint edema. LOWER EXTREMITIES: Calves are equal size bilaterally and non-tender. No edema. No discoloration. NEURO: Normal sensorium. No sensory or motor deficits noted. SKIN: No rash or jaundice noted. Chester Chisholm MD Past Med/Surg History Medical History Aortic stenosis (Chronic) CAD (coronary artery disease) (Chronic) "s/p stents in 2012" Chronic systolic heart failure (Chronic) CKD (chronic kidney disease), stage III (Chronic) 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) Gastric ulcer (Chronic) GERD (gastroesophageal reflux disease) (Chronic) History of paroxysmal atrial tachycardia Hypertension (Chronic) Hypothyroidism (Chronic) Iron deficiency anemia Ischemic cardiomyopathy (Chronic) Surgical History H/O: hysterectomy (Chronic) S/P angioplasty with stent (Chronic) "06/2013- drug eluting stent to LAD 04/2015- drug eluting stent to ostial RCA" S/P BSO (bilateral salpingo-oophorectomy) (Chronic) S/P TKR (total knee replacement) (Chronic) S/P tonsillectomy and adenoidectomy (Chronic) Family History Father , 73 No problems noted. Mother , 73 Kidney disease Coronary heart disease Cancer Kidney Diabetes Sister , 62 Colorectal cancer Social History Preferred Language: Central African Communication Ability: Effective Baker Helper Required: No Beliefs That Will Affect Care: None marital status: Current Living Situation: Alone current occupational status: retired other: Ambulates with cane Feels Safe at Home: Yes Smoking Status: Never smoker Second Hand Exposure: No ; Hx Alcohol Use: No Hx Substance Use: No Allergies Allergies Allergy/AdvReac Type Severity Reaction Status Date / Time clopidogrel Allergy Mild RASH Verified 04/04/20 18:30 Penicillins Allergy Mild RASH Verified 04/04/20 18:30 tetracycline Allergy Mild UNKNOWN Verified 04/04/20 18:30 ranitidine AdvReac Intermediate PALPITATION Verified 04/04/20 18:30 S lisinopril AdvReac Unknown DRY COUGH Verified 04/04/20 18:30 Home Meds Home Medications Medication Instructions Recorded Confirmed coenzyme Q10 100 mg PO DAILY 05/28/19 04/04/20 metoprolol succinate 25 mg PO HS 05/28/19 04/04/20 omega-3 fatty acids [Fish Oil 1,000 mg PO DAILY 05/28/19 04/04/20 Concentrate] thyroid (pork) [[place] Thyroid] 60 mg PO 3XWK 05/28/19 04/04/20 cholecalciferol (vitamin D3) 1,000 unit PO DAILY 07/25/19 04/04/20 ferrous sulfate [iron] 325 mg PO DAILY 07/25/19 04/04/20 thyroid (pork) [[place] Thyroid] 30 mg PO 4XWK 07/25/19 04/04/20 furosemide [Lasix] 20 mg PO UD 04/04/20 04/04/20 loratadine 10 mg PO DAILY 04/04/20 04/04/20 magnesium oxide 400 mg PO DAILY 04/04/20 04/04/20 Results & Data (ED) Vital Signs Vital Signs - 24 hr 04/04/20 17:02 04/04/20 17:09 04/04/20 17:30 Temperature 36.7 C Temperature Source Oral Pulse Rate 80 60 77 Pulse Rate [Bilateral Apical] Pulse Rate from SpO2 Sensor 79 77 Respiratory Rate 22 16 20 Respiratory Effort / Characteristics Non-Labored Spontaneous Respiratory Depth Normal Respiratory Pattern Regular Blood Pressure 186/100 H 186/100 H 179/78 H Blood Pressure [Left Arm] Blood Pressure Mean 140 128 102 Blood Pressure Mean [Left Arm] Pulse Oximetry 99 99 99 Oxygen Delivery Method Room Air Sepsis Recent Fever Within 48 Hours No Sepsis Action Taken by Nursing No Action Required 04/04/20 19:19 04/04/20 20:03 04/04/20 21:56 Temperature Temperature Source Pulse Rate Pulse Rate [Bilateral Apical] 86 79 72 Pulse Rate from SpO2 Sensor Respiratory Rate 20 20 20 Respiratory Effort / Characteristics Respiratory Depth Respiratory Pattern Blood Pressure Blood Pressure [Left Arm] 156/79 H 165/86 H 163/70 H Blood Pressure Mean Blood Pressure Mean [Left Arm] 104 112 101 Pulse Oximetry 99 100 100 Oxygen Delivery Method Room Air Room Air Sepsis Recent Fever Within 48 Hours Sepsis Action Taken by Nursing Laboratory Data Result diagrams: 04/04/20 23:49 04/04/20 23:49 Administered Medications Acetaminophen (Tylenol) 1,000 mg PO Q8H BRITANY Stop: 05/05/20 00:00 Last Admin: 04/05/20 00:23 Dose: 1,000 mg Documented by: [id number] Miscellaneous (Remove Lidoderm Patch) 1 ea N/A DAILY@2100 BRITANY Stop: 05/04/20 23:47 Last Admin: 04/05/20 00:25 Dose: 1 ea Documented by: [id number] Tramadol HCl (Ultram) 50 mg PO Q6H PRN PRN Reason: Moderate Pain Stop: 05/04/20 23:47 Last Admin: 04/05/20 03:07 Dose: 50 mg Documented by: [id number] Discontinued Medications Acetaminophen (Tylenol) 1,000 mg PO NOW STA Stop: 04/04/20 17:20 Last Admin: 04/04/20 17:31 Dose: 1,000 mg Documented by: [id number] Lidocaine (Lidoderm 5%) 1 patch TD NOW STA Stop: 04/04/20 17:20 Last Admin: 04/04/20 17:31 Dose: 1 patch Documented by: [id number] Metoprolol Succinate (Toprol Xl) 25 mg PO NOW STA Stop: 04/04/20 22:16 Last Admin: 04/04/20 22:50 Dose: 25 mg Documented by: [id number] Miscellaneous (Remove Lidoderm Patch) 1 ea N/A DAILY@2100 BRITANY Stop: 05/04/20 20:59 Last Admin: 04/05/20 00:25 Dose: 1 ea Documented by: [id number] Oxycodone HCl (Roxicodone Immediate Rel) 2.5 mg PO NOW STA Stop: 04/04/20 21:14 Last Admin: 04/04/20 21:22 Dose: 2.5 mg Documented by: [id number] Blood Pressure Blood Pressure Findings: Normal blood pressure Discharge Plan Visit Data *Final* Discharge Date/Time: 04/04/20 23:14 Chief Complaint: Fall Stated Complaint: FALL, BACK & SHOULDER PAIN ED Provider: Chester Chisholm Discharge Problem: Closed rib fracture, Fall Patient Disposition: Admitted As Inpatient Discharge Instructions Interventions: ED Discharge Assessment Last Done: 04/04/20 23:14 Discharge Problem: Closed rib fracture Qualifiers: Encounter type: initial encounter Rib fracture type: single rib Laterality: right Qualified Code(s): S22.31XA - Fracture of one rib, right side, initial encounter for closed fracture
[2020-04-05 00:47] LABS: Albumin Globulin Ratio 0.8 (0.9-2); Bilirubin,Total 0.4 mg/dl (0.2-1); Globulin 3.9 gm/dl (2.5-4.0); Thyroid Stimulating Hormone 2.81 uIu/ml (0.300-4.500)
[2020-04-05] MEDS ORDERED: HYDROmorphone INJ 0.5 MG/0.5 ML SYR IV PRN (05:11)
[2020-04-05] MEDS: OXYCODONE HCL IR 5 MG TAB (IMMEDIATE RELEASE) PO PRN (05:38)
[2020-04-05] MEDS ORDERED: ARMOUR THYROID 30 MG TAB PO SCH (06:30)
--- NOTE | 2020-04-05 07:01 | Ultrasound Report ---
CAROTID ARTERY ULTRASOUND CLINICAL HISTORY: syncope COMPARISON STUDY: Carotid ultrasound December 02, 2015. TECHNIQUE: Real-time, grayscale, and color Doppler sonography of the carotid and vertebral arteries w as performed. Images were viewed in the transverse and longitudinal planes. FINDINGS: There is moderate calcified atherosclerotic plaque. Velocity measurements are listed below. COMMON CAROTID PEAK SYSTOLIC VELOCITY (CM/S): RIGHT 57 LEFT 71 ICA PEAK SYSTOLIC VELOCITY (CM/S): RIGHT 68 LEFT 88 Systolic ratios between the internal to common carotid arteries are normal. Antegrade flow is seen in the vertebral arteries. The external carotid arteries are patent. Blood pressure in the right arm measured 129/70. Blood pressure in the left arm measured 137/65. IMPRESSION: Moderate atherosclerotic plaque without evidence for a hemodynamically significant steno sis. ACT 112: Negative or not required by law. Electronically signed by: Mati Hendricks M.D. 04/05/2020 7:00 AM
[2020-04-05] MEDS: LORATADINE 10 MG TAB PO SCH (08:32)
[2020-04-05] MEDS: CHOLECALCIFEROL 1,000 UNITS 25 MCG TAB PO SCH (08:32)
[2020-04-05] MEDS: MAGNESIUM OXIDE 400 MG TAB PO SCH (08:32)
[2020-04-05] MEDS: FERROUS SULFATE 325 MG TAB PO SCH (08:32)
[2020-04-05] MEDS: LIDOCAINE 5% 1 PATCH TD SCH (08:32)
--- NOTE | 2020-04-05 12:07 | Cardiology Consultation ---
Date of Consultation April 05, 2020 Assessment & Plan (1) Recurrent falls: Patient is an 79-year-old female with complex history as outlined above ischemic heart disease borderline severe aortic stenosis with recent multiple falls and past falls over the past years time. No noted syncope or dizziness per patient though loses balance easily. Not faithfully using walker. No sensed arrhythmias. Echocardiogram has demonstrated as noted above borderline severe aortic stenosis but with little change in overall LV systolic function. Certainly feel aortic stenosis could contribute to complaints but not critical at this point time and and in past patient not felt to be certain candidate for valve intervention. Agree with orthostatic blood pressures Would reduce metoprolol succinate to 12.5 mg nightly Supplement potassium Given urinary frequency UA and culture as necessary be ordered, patient not using diuretic currently Maintain telemetry while in hospital Patient likely to benefit from more controlled environment (2) Aortic stenosis: (3) Ischemic cardiomyopathy: History of Present Illness Reason for Consultation: Multiple falls, aortic stenosis Requesting Physician: Dr Siegel Attending Physician: Kathy Siegel MD History of Present Illness Patient is a complex 79-year-old female with underlying history of 1. Borderline severe aortic stenosis 2. Coronary artery disease s/p drug eluting stenting to the LAD in 2012 and RCA in April 2015 3. Ischemic cardiomyopathy with an estimated left ventricular ejection fraction of 40-45% 4. Chronic combined systolic and diastolic congestive heart failure. Volume status is currently compensated. 5. Admission to [facility] in Nov 2015 with expressive aphasia, memory loss, TIA. CT and Brain MRI were negative for CVA. 6. Carotid duplex demonstrated mild atherosclerosis, without significant stenosis. 7. Hypertension 8. Dyslipidemia 9. Stage III chronic kidney disease 10. Iron deficiency anemia Patient is referred due to recent difficulties with multiple falls. Patient denies dizziness lightheadedness syncope or near syncope in association with falls. Notes she loses her balance is not tumbles. She uses her walker only sporadically at home. No fevers chills or unexplained infections. Does have frequent urination and discontinued furosemide previously prescribed. No current chest pains other than in association with rib injury. No orthopnea worsening peripheral edema. Does admit to becoming confused at times and notes she has "her nights and days switched". Appetite is fair weight is been stable. No worsening edema. No headaches or visual changes. Notes no sense of tachypalpitations or arrhythmias. No overt bleeding issues, melena or hematochezia. Notes difficulty with memory at times, usually pretty good with medication Allergies Allergy/AdvReac Type Severity Reaction Status Date / Time clopidogrel Allergy Mild RASH Verified 04/04/20 18:30 Penicillins Allergy Mild RASH Verified 04/04/20 18:30 tetracycline Allergy Mild UNKNOWN Verified 04/04/20 18:30 ranitidine AdvReac Intermediate PALPITATION Verified 04/04/20 18:30 S lisinopril AdvReac Unknown DRY COUGH Verified 04/04/20 18:30 Home Medications Home Medications Medication Instructions Recorded Confirmed Type coenzyme Q10 100 mg PO DAILY 05/28/19 04/04/20 History metoprolol succinate 25 mg PO HS 05/28/19 04/04/20 History omega-3 fatty acids [Fish Oil 1,000 mg PO DAILY 05/28/19 04/04/20 History Concentrate] thyroid (pork) [[place] Thyroid] 60 mg PO 3XWK 05/28/19 04/04/20 History cholecalciferol (vitamin D3) 1,000 unit PO DAILY 07/25/19 04/04/20 History ferrous sulfate [iron] 325 mg PO DAILY 07/25/19 04/04/20 History thyroid (pork) [[place] Thyroid] 30 mg PO 4XWK 07/25/19 04/04/20 History furosemide [Lasix] 20 mg PO UD 04/04/20 04/04/20 History loratadine 10 mg PO DAILY 04/04/20 04/04/20 History magnesium oxide 400 mg PO DAILY 04/04/20 04/04/20 History Patient History Medical History Aortic stenosis (Chronic) CAD (coronary artery disease) (Chronic) "s/p stents in 2012" Chronic systolic heart failure (Chronic) CKD (chronic kidney disease), stage III (Chronic) 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) Gastric ulcer (Chronic) GERD (gastroesophageal reflux disease) (Chronic) History of paroxysmal atrial tachycardia Hypertension (Chronic) Hypothyroidism (Chronic) Iron deficiency anemia Ischemic cardiomyopathy (Chronic) Surgical History H/O: hysterectomy (Chronic) S/P angioplasty with stent (Chronic) "06/2013- drug eluting stent to LAD 04/2015- drug eluting stent to ostial RCA" S/P BSO (bilateral salpingo-oophorectomy) (Chronic) S/P TKR (total knee replacement) (Chronic) S/P tonsillectomy and adenoidectomy (Chronic) Family History Father , 73 No problems noted. 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: No Beliefs That Will Affect Care: None marital status: Current Living Situation: Alone current occupational status: retired other: Ambulates with cane Feels Safe at Home: Yes Smoking Status: Never smoker Second Hand Exposure: No ; Hx Alcohol Use: No Hx Substance Use: No Review of Systems Review of Systems: All systems reviewed & are unremarkable except as noted in HPI & below Physical Exam Constitutional: no acute distress Elderly frail-appearing female Eyes: PERRL, conjunctivae normal, anicteric sclerae ENMT: external ear and nose normal, oropharynx normal Neck: trachea midline, no thyromegaly Respiratory: normal respiratory effort, lungs clear to auscultation Cardiovascular: Rate/Rhythm: regular rate and regular rhythm Heart Sounds: normal S1 and + murmur (Grade 2/6 to 3/6 systolic ejection murmur greatest right upper sternal border); + abnormal S2 and no gallop Palpation: normal PMI Vessels: radial pulses present; no JVD, no carotid bruit and + abnormal carotid upstroke (Mildly reduced carotid upstroke with mild delay) Extremities: no edema Gastrointestinal (Abdomen): normal bowel sounds, soft, nontender, no hepatosplenomegaly Musculoskeletal: no cyanosis or clubbing, extremities motor strength 5/5 Skin: no rashes, warm and dry Neurologic: PERRL, EOMI, accommodation nl, no face palsy, no dysarthria Psychiatric: A+Ox3, euthymic affect Results & Data ([facility]) Vital Signs (Past 12 Hours) Vital Signs Temp Pulse Pulse Resp BP BP Pulse Ox 04/05/20 11:49 36.7 C 54 L 20 130/71 98 04/05/20 08:00 52 L 04/05/20 07:51 36.4 C L 53 L 20 117/63 96 04/05/20 03:03 36.4 C L 55 L 18 135/67 98 04/05/20 01:00 36.9 C 63 18 151/70 H 97 Laboratory Results Laboratory Results - last 24 hr 04/04/20 04/04/20 04/04/20 23:49 23:49 23:49 WBC 10.92 H RBC 4.69 Hgb 12.8 Hct 38.2 MCV 81.4 MCH 27.3 MCHC 33.5 RDW Std Deviation 51.1 H RDW Coeff of Yvonne 17.1 H Plt Count 207 MPV 10.6 H PT 11.4 INR 1.1 APTT 28.4 PTT Ratio 1.0 Sodium 140 Potassium 3.5 Chloride 109 H Carbon Dioxide 24 Anion Gap 8.0 BUN 27 H Creatinine 1.29 H Est Cr Clr Drug Dosing 27.5 Est GFR ( Amer) 45.0 Est GFR (Non-Af Amer) 38.8 BUN/Creatinine Ratio 21.0 H Glucose 143 H Calcium 8.7 Total Bilirubin 0.4 AST 24 ALT 28 Alkaline Phosphatase 98 Total Protein 7.0 Albumin 3.1 L Globulin 3.9 Albumin/Globulin Ratio 0.8 L TSH 2.810 Diagnostic Findings Echocardiogram 03/24/2020 The primary indication after review was deemed appropriate and the examination was performed. Normal LV chamber size with mild concentric LVH. Mildly reduced LV systolic function. Calculated LV ejection Fraction = 47% (bi-plane method of discs). There is a large sized apical, septal, and anteroseptal wall motion abnormality with hypokinesis to akinesis of the segments. Grade 1 diastolic dysfunction. The aortic valve has three leaflets. The aortic valve is moderately calcified. There is moderate to severe aortic stenosis. Mild aortic valve regurgitation is present. Mild mitral regurgitation. Severe left atrial enlargement
--- NOTE | 2020-04-05 12:30 | Hospitalist Progress Note ---
Date of Service April 05, 2020 Assessment & Plan (1) Recurrent falls: Pt is 79 y/o F with PMH CAD s/p stent, aortic stenosis, chronic systolic and diastolic heart failure, HTN, dyslipidemia, CKD III, GERD, iron deficiency anemia, hypothyroidism presented to ER with complaint of fall. Pt with h/o recurrent falls at home. She denies any dizziness, CP, SOB, palpitations prior to falls. Had fall today prompting ER visit. Secondary to ambulatory dysfunction and mechanical fall complicated by the history of aortic stenosis CT Chest: nondisplaced fracture of right 6th rib. No pneumothorax. Negative CT head and C-spine for fracture and no acute findings on CT abd/pelvis. CT of the head is negative and pelvic ultrasound showed moderate atherosclerotic changes without significant stenosis Recent outpatient echo 03/24/2020: Moderate to severe aortic stenosis, EF: 47%, grade 1 diastolic dysfunction Clinically stable with weakness and some pain with movement Has been getting physical therapy and will likely need rehab on discharge PT and OT evaluation (2) Closed traumatic nondisplaced fracture of rib: nondisplaced fracture of right 6th rib. No pneumothorax on CT chest -In ER given Tylenol, oxycodone 2.5 mg, Lidoderm patch -Incentive spirometry -Scheduled Tylenol, lidocaine patch, tramadol as needed (3) Aortic stenosis: Outpatient echo 03/24/2020: Moderate to severe aortic stenosis, EF: 47%, g rade 1 diastolic dysfunction With history of ischemic cardiomyopathy Appreciate cardiology input and recommendation No further investigation and metoprolol succinate 12.5 mg daily at night has been started (4) History of paroxysmal atrial tachycardia: -Monitor on telemetry -Continue metoprolol (5) CAD (coronary artery disease): S/P stent Denies chest pain, shortness of breath -Continue metoprolol (6) Hypertension: Elevated BP noted in ER likely secondary to pain -Monitor BP closely -Continue metoprolol (7) Combined systolic and diastolic congestive heart failure: Currently appears euvolemic -Patient was previously prescribed Lasix 20 mg to take on Mondays, Wednesdays. Patient states has not been taking as it makes her urinate (8) CKD (chronic kidney disease), stage III: Baseline Cr: 1.3-1.4 -Monitor renal functions (9) Hypothyroidism: TSH: 1.6 on 11/10/2019 -Continue [place] Thyroid -Obtain TSH (10) Iron deficiency anemia: Baseline Hgb: 11.6 -Obtain CBC -Continue iron supplement DVT Prophylaxis -SCDs for now We will start subcu heparin Full Code as per discussion with pt tyron. Outpatient record reported DNR. Will need readdressed with pt tomorrow. Follows with Dr Nation for routine care Admission and Anticipated Discharge Date Admission Date: April 05, 2020 Subjective The patient was seen and examined in the medical floor She complains to have generalized weakness and pain involving multiple areas of her body Denies any shortness of breath at rest, any abdominal pain nausea and or vomiting Review of Systems Review of Systems: All systems reviewed and are unremarkable except as noted below Constitutional: + body aches and + fatigue Respiratory: no dyspnea Cardiovascular: no chest pain Gastrointestinal: no abdominal pain Physical Exam Physical Exam: Lying in bed with minimal discomfort secondary to pain Constitutional: well developed, well nourished and + ill appearing; no acute distress Eyes: PERRL, conjunctivae normal, anicteric sclerae ENMT: external ear and nose normal, oropharynx normal Neck: trachea midline, no thyromegaly Respiratory: no respiratory distress Auscultation: lungs clear to auscultation bilaterally Cardiovascular: Rate/Rhythm: regular rate and regular rhythm Heart Sounds: no murmur Gastrointestinal (Abdomen): Inspection/Auscultation: abdomen normal to inspection and normal bowel sounds; abdomen not distended Percussion/Palpation: abdomen soft; abdomen nontender Musculoskeletal: No acute arthritis involving any joints Neurologic: moves all extremities; no focal motor deficits Lymphatic: no cervical or axillary lymphadenopathy Results & Data Results & Data ([facility]) Vital Signs (Past 12 Hours) Vital Signs Temp Pulse Pulse Resp BP BP Pulse Ox 04/05/20 11:49 36.7 C 54 L 20 130/71 98 04/05/20 08:00 52 L 04/05/20 07:51 36.4 C L 53 L 20 117/63 96 04/05/20 03:03 36.4 C L 55 L 18 135/67 98 04/05/20 01:00 36.9 C 63 18 151/70 H 97 Laboratory Results Short CBC 04/04/20 Range/Units 23:49 WBC 10.92 H (4.8-10.8) K/uL Hgb 12.8 (12.0-16.0) g/dL Hct 38.2 (37-47) % Plt Count 207 (130-400) K/uL BMP 04/04/20 23:49 Sodium 140 Potassium 3.5 Chloride 109 H Carbon Dioxide 24 BUN 27 H Creatinine 1.29 H Glucose 143 H Calcium 8.7 Liver Function 04/04/20 Range/Units 23:49 Total Bilirubin 0.4 (0.2-1) mg/dl AST 24 (15-37) U/L ALT 28 (12-78) U/L Alkaline Phosphatase 98 (45-117) U/L Albumin 3.1 L (3.4-5.0) gm/dl Medications Administered Current Inpatient Medications Acetaminophen (Tylenol) 1,000 mg PO Q8H BRITANY Stop: 05/05/20 00:00 Last Admin: 04/05/20 08:30 Dose: 1,000 mg Documented by: Ferrous Sulfate (Feosol) 325 mg PO DAILY BRITANY Stop: 05/05/20 08:59 Last Admin: 04/05/20 08:32 Dose: 325 mg Documented by: Hydromorphone HCl (Dilaudid) 0.5 mg IV Q3H PRN PRN Reason: Pain Stop: 04/19/20 05:10 Lidocaine (Lidoderm 5%) 1 patch TD QAM BRITANY Stop: 05/05/20 08:59 Last Admin: 04/05/20 08:32 Dose: 1 patch Documented by: Loratadine (Claritin) 10 mg PO DAILY BRITANY Stop: 05/05/20 08:59 Last Admin: 04/05/20 08:32 Dose: 10 mg Documented by: Magnesium Oxide (Mag-Ox) 400 mg PO DAILY BRITANY Stop: 05/05/20 08:59 Last Admin: 04/05/20 08:32 Dose: 400 mg Documented by: Metoprolol Succinate (Toprol Xl) 12.5 mg PO HS BRITANY Stop: 05/05/20 20:59 Miscellaneous (Remove Lidoderm Patch) 1 ea N/A DAILY@2100 BRITANY Stop: 05/04/20 23:47 Last Admin: 04/05/20 00:25 Dose: 1 ea Documented by: Oxycodone HCl (Roxicodone Immediate Rel) 5 mg PO Q4H PRN PRN Reason: Pain Stop: 04/19/20 05:10 Last Admin: 04/05/20 05:38 Dose: 5 mg Documented by: Potassium Chloride (Klor-Con M20) 20 meq PO 1245 ONE Stop: 04/05/20 12:46 Thyroid ([place] Thyroid) 30 mg PO SuTuThSa@629 [facility] Stop: 05/06/20 06:29 Thyroid ([place] Thyroid) 60 mg PO MoWeFr@30 [facility] Stop: 05/05/20 06:29 Last Admin: 04/05/20 05:38 Dose: 60 mg Documented by: Tramadol HCl (Ultram) 50 mg PO Q6H PRN PRN Reason: Moderate Pain Stop: 05/04/20 23:47 Last Admin: 04/05/20 03:07 Dose: 50 mg Documented by: Vitamin D (Vitamin D3) 1,000 units PO DAILY [facility] Stop: 05/05/20 08:59 Last Admin: 04/05/20 08:32 Dose: 1,000 units Documented by:
[2020-04-05] MEDS ORDERED: POTASSIUM CHLORIDE 20 MEQ TABCR PO ONE (12:45)
[2020-04-05 14:35] LABS: Appearance Urine Clear (Clear); Bilirubin Urine Negative (Negative); Blood Urine Negative (Negative); Color Urine Yellow; Glucose Urine UA Negative (Negative); Ketones Urine Negative (Negative); Leukocyte Esterase Urine Negative (Negative); Nitrite Urine Negative (Negative); Protein Urine Negative (Negative); Specific Gravity Urine 1.025 (1.000-1.030); Urobilinogen Urine Negative (Negative); pH Urine 5.5 (4.5-7.5)
[2020-04-05] MEDS: HEPARIN SOD 5,000 UNIT/0.5 ML VIAL SQ SCH (20:53)
[2020-04-05] MEDS ORDERED: METOPROLOL SUCC 25MG EXT REL TAB PO SCH ×2 (21:00)
--- NOTE | 2020-04-05 22:39 | Electrocardiogram Report ---
Test Reason : Blood Pressure : / mmHG Vent. Rate : 068 BPM Atrial Rate : 068 BPM P-R Int : 192 ms QRS Dur : 084 ms QT Int : 418 ms P-R-T Axes : 051 007 055 degrees QTc Int : 444 ms Poor data quality, interpretation may be adversely affected Normal sinus rhythm Septal infarct (cited on or before 26-JUN-2013) Abnormal ECG When compared with ECG of 25-JUL-2019 13:35, Questionable change in initial forces of Anterior leads Confirmed by Eladio Villanueva ([id number]) on 04/05/2020 10:39:07 PM Referred By: REFERRED SELF Confirmed By:Eladio Villanueva
[2020-04-06] MEDS: ACETAMINOPHEN 500 MG TAB PO SCH ×2 (00:15→08:28)
[2020-04-06] MEDS ORDERED: ARMOUR THYROID 30 MG TAB PO SCH (06:30)
[2020-04-06 06:43] LABS: Basophils # (auto) 0.04 K/uL (0-0.2); Basophils % (auto) 0.5 %; Eosinophils # (auto) 0.24 K/uL (0-0.5); Eosinophils % (auto) 2.8 %; Hematocrit (blood only) 42.1 % (37-47); Hemoglobin 13.2 g/dL (12.0-16.0); Immature Granulocytes # (auto) 0.02 K/uL (0.00-0.02); Immature Granulocytes % (auto) 0.2 %; Lymphocytes # (auto) 1.88 K/uL (1.2-3.4); Lymphocytes % (auto) 22.2 %; Mean Corpuscular Hemoglobin 25.6 pg (25-34); Mean Corpuscular Hgb Conc 31.4 g/dL (32-36); Mean Corpuscular Volume 81.7 fL (80-100); Mean Platelet Volume 11.3 fL (7.4-10.4); Neutrophils # (auto) 5.17 K/uL (1.4-6.5); Neutrophils % (auto) 61.3 %; Platelet Count 225 K/uL (130-400); RDW Coefficient of Variation 17.1 % (11.5-14.5); RDW Standard Deviation 51.5 fL (36.4-46.3); Red Blood Count 5.15 M/uL (4.2-5.4); White Blood Count 8.45 K/uL (4.8-10.8)
[2020-04-06 07:18] LABS: BUN Creatinine Ratio 20.6 (10-20); Calcium 8.7 mg/dl (8.5-10.1); Creatinine Clr Calc Pharmacy 31.1 ml/min; Est GFR (African American) 52.2; Est GFR (Non-African American) 45.1; Magnesium 2.3 mg/dl (1.8-2.4)
[2020-04-06] MEDS: LIDOCAINE 5% 1 PATCH TD SCH (08:27)
[2020-04-06] MEDS: CHOLECALCIFEROL 1,000 UNITS 25 MCG TAB PO SCH (08:28)
[2020-04-06] MEDS: MAGNESIUM OXIDE 400 MG TAB PO SCH (08:28)
[2020-04-06] MEDS: FERROUS SULFATE 325 MG TAB PO SCH (08:28)
[2020-04-06] MEDS: HEPARIN SOD 5,000 UNIT/0.5 ML VIAL SQ SCH (08:28)
[2020-04-06] MEDS: LORATADINE 10 MG TAB PO SCH (08:28)
[2020-04-06] MEDS: OXYCODONE HCL IR 5 MG TAB (IMMEDIATE RELEASE) PO PRN ×2 (10:09→13:43)
--- NOTE | 2020-04-06 11:01 | Hospitalist Progress Note ---
Date of Service April 06, 2020 Assessment & Plan (1) Recurrent falls: Pt is 79 y/o F with PMH CAD s/p stent, aortic stenosis, chronic systolic and diastolic heart failure, HTN, dyslipidemia, CKD III, GERD, iron deficiency anemia, hypothyroidism presented to ER with complaint of fall. Pt with h/o recurrent falls at home. She denies any dizziness, CP, SOB, palpitations prior to falls. Had fall today prompting ER visit. Secondary to ambulatory dysfunction and mechanical fall complicated by the history of aortic stenosis CT Chest: nondisplaced fracture of right 6th rib. No pneumothorax. Negative CT head and C-spine for fracture and no acute findings on CT abd/pelvis. CT of the head is negative and pelvic ultrasound showed moderate atherosclerotic changes without significant stenosis Recent outpatient echo 03/24/2020: Moderate to severe aortic stenosis, EF: 47%, grade 1 diastolic dysfunction Clinically stable with weakness and some pain with movement Has been getting physical therapy and will likely need rehab on discharge PT and OT evaluation-recommended rehab She is accepted to [facility] and will likely be discharged this afternoon (2) Closed traumatic nondisplaced fracture of rib: nondisplaced fracture of right 6th rib. No pneumothorax on CT chest -In ER given Tylenol, oxycodone 2.5 mg, Lidoderm patch -Incentive spirometry -Scheduled Tylenol, lidocaine patch, tramadol as needed -We will decrease the use of tramadol and narcotics (3) Aortic stenosis: Outpatient echo 03/24/2020: Moderate to severe aortic stenosis, EF: 47%, grade 1 diastolic dysfunction With history of ischemic cardiomyopathy Appreciate cardiology input and recommendation No further investigation and metoprolol succinate 12.5 mg daily at night has been started Remains asymptomatic (4) History of paroxysmal atrial tachycardia: -Monitor on telemetry -Continue metoprolol (5) CAD (coronary artery disease): S/P stent Denies chest pain, shortness of breath -Continue metoprolol (6) Hypertension: Elevated BP noted in ER likely secondary to pain -Monitor BP closely -Continue metoprolol (7) Combined systolic and diastolic congestive heart failure: Currently appears euvolemic -Patient was previously prescribed Lasix 20 mg to take on Mondays, Wednesdays. Patient states has not been taking as it makes her urinate (8) CKD (chronic kidney disease), stage III: Baseline Cr: 1.3-1.4 -Monitor renal functions (9) Hypothyroidism: TSH: 1.6 on 11/10/2019 -Continue [place] Thyroid -Obtain TSH- (10) Iron deficiency anemia: Baseline Hgb: 11.6 -Obtain CBC -Continue iron supplement DVT Prophylaxis -SCDs for now We will start subcu heparin Full Code as per discussion with yumiko ackerman. Outpatient record reported DNR. Follows with Dr Nation for routine care Admission and Anticipated Discharge Date Admission Date: April 05, 2020 Subjective The patient was seen and examined in the medical floor She complains to have generalized weakness and pain involving multiple areas of her body Denies any shortness of breath at rest, any abdominal pain nausea and or vomiting 04/06/2020 The patient was seen and examined in medical floor She has been complaining of pain with coughing and deep breathing Denies any significant symptoms at rest Review of Systems Review of Systems: All systems reviewed and are unremarkable except as noted below Constitutional: + body aches and + fatigue Respiratory: + cough (Pain with coughing) Physical Exam Physical Exam: Sitting in a chair with minimal discomfort secondary to pain with movements Constitutional: well developed, well nourished and + ill appearing; no acute distress Eyes: PERRL, conjunctivae normal, anicteric sclerae ENMT: external ear and nose normal, oropharynx normal Neck: trachea midline, no thyromegaly Respiratory: no respiratory distress Auscultation: + diminished lung sounds and + crackles (Minimal bibasilar crackles) Cardiovascular: Rate/Rhythm: regular rate and regular rhythm Heart Sounds: no murmur Gastrointestinal (Abdomen): Inspection/Auscultation: abdomen normal to inspection and normal bowel sounds; abdomen not distended Percussion/Palpation: abdomen soft; abdomen nontender Neurologic: moves all extremities; no focal motor deficits Lymphatic: no cervical or axillary lymphadenopathy Results & Data Results & Data ([facility]) Vital Signs (Past 12 Hours) Vital Signs Temp Pulse Resp BP Pulse Ox 04/06/20 07:41 36.5 C 66 18 155/69 H 97 04/05/20 23:38 36.8 C 56 L 20 138/75 96 Laboratory Results Short CBC 04/06/20 Range/Units 06:14 WBC 8.45 (4.8-10.8) K/uL Hgb 13.2 (12.0-16.0) g/dL Hct 42.1 (37-47) % Plt Count 225 (130-400) K/uL BMP 04/06/20 06:14 Sodium 139 Potassium 4.0 Chloride 109 H Carbon Dioxide 26 BUN 23 H Creatinine 1.14 Glucose 91 Calcium 8.7 Urine 04/05/20 Range/Units 14:05 Urine Color Yellow Urine Appearance Clear (Clear) Urine pH 5.5 (4.5-7.5) Ur Specific [place] 1.025 (1.000-1.030) Urine Protein Negative (Negative) Urine Glucose (UA) Negative (Negative) Medications Administered Current Inpatient Medications Acetaminophen (Tylenol) 1,000 mg PO Q8H BRITANY Stop: 05/05/20 00:00 Last Admin: 04/06/20 08:28 Dose: 1,000 mg Documented by: Ferrous Sulfate (Feosol) 325 mg PO DAILY BRITANY Stop: 05/05/20 08:59 Last Admin: 04/06/20 08:28 Dose: 325 mg Documented by: Heparin Sodium (Porcine) (Heparin Sodium (Porcine)) 5,000 units SQ Q12 BRITANY Stop: 05/05/20 20:59 Last Admin: 04/06/20 08:28 Dose: 5,000 units Documented by: Hydromorphone HCl (Dilaudid) 0.5 mg IV Q3H PRN PRN Reason: Pain Stop: 04/19/20 05:10 Lidocaine (Lidoderm 5%) 1 patch TD QAM BRITANY Stop: 05/05/20 08:59 Last Admin: 04/06/20 08:27 Dose: 1 patch Documented by: Loratadine (Claritin) 10 mg PO DAILY BRITANY Stop: 05/05/20 08:59 Last Admin: 04/06/20 08:28 Dose: 10 mg Documented by: Magnesium Oxide (Mag-Ox) 400 mg PO DAILY [facility] Stop: 05/05/20 08:59 Last Admin: 04/06/20 08:28 Dose: 400 mg Documented by: Metoprolol Succinate (Toprol Xl) 12.5 mg PO HS [facility] Stop: 05/05/20 20:59 Last Admin: 04/05/20 20:58 Dose: 12.5 mg Documented by: Miscellaneous (Remove Lidoderm Patch) 1 ea N/A DAILY@2100 [facility] Stop: 05/04/20 23:47 Last Admin: 04/05/20 20:57 Dose: 1 ea Documented by: Oxycodone HCl (Roxicodone Immediate Rel) 5 mg PO Q4H PRN PRN Reason: Pain Stop: 04/19/20 05:10 Last Admin: 04/06/20 10:09 Dose: 5 mg Documented by: Thyroid ([place] Thyroid) 30 mg PO SuTuThSa@0630 [facility] Stop: 05/06/20 06:29 Last Admin: 04/06/20 06:02 Dose: 30 mg Documented by: Thyroid ([place] Thyroid) 60 mg PO MoWeFr@0630 [facility] Stop: 05/05/20 06:29 Last Admin: 04/05/20 05:38 Dose: 60 mg Documented by: Tramadol HCl (Ultram) 50 mg PO Q6H PRN PRN Reason: Moderate Pain Stop: 05/04/20 23:47 Last Admin: 04/05/20 03:07 Dose: 50 mg Documented by: Vitamin D (Vitamin D3) 1,000 units PO DAILY [facility] Stop: 05/05/20 08:59 Last Admin: 04/06/20 08:28 Dose: 1,000 units Documented by:
--- NOTE | 2020-04-07 08:27 | Discharge Summary ---
Date of Service April 07, 2020 Admission HPI Per Admitting Provider Pt is 79 y/o F with PMH CAD s/p stent, aortic stenosis, chronic systolic and diastolic heart failure, HTN, dyslipidemia, CKD III, GERD, iron deficiency anemia, hypothyroidism presented to ER with complaint of fall. Patient is poor historian currently, unsure if this is secondary to pain medication patient received in ER or this is patient's baseline. Patient lives at home alone. She reports uses rolling walker or cane to ambulate. Patient reports that she has had a couple of falls out of bed. Patient also reports has falls while walking. She denies any dizziness, CP, SOB, palpitations prior to falls. Patient reports she fell today but is unable to further clarify at this time. She does not think she had lost consciousness. Pt's daughter contacted who confirms pt has recurrent falls at home and unsure of reason for falls. She reports today pt reported fell in bathroom and was able to crawl and call neighbor for help. Patient reports chronic bilateral knee pain denies any increased pain. Reports posterior neck pain and pain to right posterior rib aggravated with movement and deep breathing. Patient denies any other pain in chest, upper extremity pain or other lower extremity pain. Patient reports chronic intermittent pains to abdomen denies any pain currently. Reports often has daily headaches at home. Denies any current headache. Patient does report she feels a little loopy after receiving pain medicine in ER. Denies fever/chills, diaphoresis, N/V/D/C, vision changes, cough, paresthesias, extremity edema, rashes, urinary symptoms. In ER pt had imaging revealing nondisplaced fracture of right 6th rib. No pneumothorax. Negative CT head and C-spine for fracture and no acute findings on CT abd/pelvis. ER was trying to have pt go to [facility] however that was unable to be accomplished tonight. Admission Exam Per Admitting Provider Physical Exam: General: no distress, WDWN Head: normocephalic, atraumatic Eyes: EOM's intact, conjunctiva non-injected, anicteric ENT: normal inspection external ears, nose, mucous membranes moist Neck: supple, trachea midline, +tenderness to palpation lower c-spine without palpable abnormality, pt with active ROM of neck Lungs: clear, no respiratory distress, no wheezing/rhonchi/rales Thorax: no discoloration or ecchymosis; +tenderness to palpation right posterior rib cage CV: RRR, +systolic murmur, no pretibial edema Abd: normal BS, soft, non-tender Ext: no cyanosis, no calf tenderness; active ROM of arms and legs, distal pulses intact Neuro: Alert, oriented to person, place, month and year, no focal deficits noted, normal affect Skin: warm, dry Principal Diagnosis Recurrent falls secondary to ambulatory dysfunction, right nondisplaced sixth rib fracture, CAD, aortic stenosis-stable, history of paroxysmal atrial tachycardia, hypertension Discharge Exam Constitutional well developed, well nourished and + ill appearing; no acute distress Eyes PERRL, conjunctivae normal, anicteric sclerae ENMT external ear and nose normal, oropharynx normal Neck trachea midline, no thyromegaly Respiratory no respiratory distress Auscultation: + diminished lung sounds and + crackles (Minimal bibasilar crackles) Cardiovascular Rate/Rhythm: regular rate and regular rhythm Heart Sounds: no murmur Gastrointestinal (Abdomen) Inspection/Auscultation: abdomen normal to inspection and normal bowel sounds; abdomen not distended Percussion/Palpation: abdomen soft; abdomen nontender Neurologic moves all extremities; no focal motor deficits Lymphatic no cervical or axillary lymphadenopathy Discharge Data Allergies Allergy/AdvReac Type Severity Reaction Status Date / Time clopidogrel Allergy Mild RASH Verified 04/04/20 18:30 Penicillins Allergy Mild RASH Verified 04/04/20 18:30 tetracycline Allergy Mild UNKNOWN Verified 04/04/20 18:30 ranitidine AdvReac Intermediate PALPITATION Verified 04/04/20 18:30 S lisinopril AdvReac Unknown DRY COUGH Verified 04/04/20 18:30 Consultations 04/04/20 21:21 ED Decision to Admit Stat 04/04/20 23:48 Consult Cardiology Routine Consult Case Management - Discharge Planning Routine Ordered Studies 04/04/20 17:19 CT abd pelvis wo con Stat CT cervical spine wo con Stat CT chest wo con Stat CT head/brain wo con Stat 04/04/20 23:48 US carotid doppler BI Routine Hospital Course (1) Recurrent falls: Pt is 79 y/o F with PMH CAD s/p stent, aortic stenosis, chronic systolic and diastolic heart failure, HTN, dyslipidemia, CKD III, GERD, iron deficiency anemia, hypothyroidism presented to ER with complaint of fall. Pt with h/o recurrent falls at home. She denies any dizziness, CP, SOB, palpitations prior to falls. Had fall today prompting ER visit. Secondary to ambulatory dysfunction and mechanical fall complicated by the history of aortic stenosis CT Chest: nondisplaced fracture of right 6th rib. No pneumothorax. Negative CT head and C-spine for fracture and no acute findings on CT abd/pelvis. CT of the head is negative and pelvic ultrasound showed moderate atherosclerotic changes without significant stenosis Recent outpatient echo 03/24/2020: Moderate to severe aortic stenosis, EF: 47%, grade 1 diastolic dysfunction Clinically stable with weakness and some pain with movement Has been getting physical therapy and will likely need rehab on discharge PT and OT evaluation-recommended rehab She is accepted to [facility] and will likely be discharged this afternoon (2) Closed traumatic nondisplaced fracture of rib: nondisplaced fracture of right 6th rib. No pneumothorax on CT chest -In ER given Tylenol, oxycodone 2.5 mg, Lidoderm patch -Incentive spirometry -Scheduled Tylenol, lidocaine patch, tramadol as needed -We will decrease the use of tramadol and narcotics (3) Aortic stenosis: Outpatient echo 03/24/2020: Moderate to severe aortic stenosis, EF: 47%, grade 1 diastolic dysfunction With history of ischemic cardiomyopathy Appreciate cardiology input and recommendation No further investigation and metoprolol succinate 12.5 mg daily at night has been started Remains asymptomatic (4) History of paroxysmal atrial tachycardia: -Monitor on telemetry -Continue metoprolol (5) CAD (coronary artery disease): S/P stent Denies chest pain, shortness of breath -Continue metoprolol (6) Hypertension: Elevated BP noted in ER likely secondary to pain -Monitor BP closely -Continue metoprolol (7) Combined systolic and diastolic congestive heart failure: Currently appears euvolemic -Patient was previously prescribed Lasix 20 mg to take on Mondays, Wednesdays. Patient states has not been taking as it makes her urinate (8) CKD (chronic kidney disease), stage III: Baseline Cr: 1.3-1.4 -Monitor renal functions (9) Hypothyroidism: TSH: 1.6 on 11/10/2019 -Continue [place] Thyroid -Obtain TSH- (10) Iron deficiency anemia: Baseline Hgb: 11.6 -Obtain CBC -Continue iron supplement DVT Prophylaxis -SCDs for now We will start subcu heparin Full Code as per discussion with pt tonight. Outpatient record reported DNR. Follows with Dr Nation for routine care Total Time Total Time Spent Total Time Spent (In Minutes): 35 minutes Total Time Includes: Examination of the Patient, Discharge Planning, Medication Reconciliation and Communication With Other Providers Discharge Plan Discharge Items Patient Disposition: Transfer Inpatient Rehab Fac Reason For Visit: FALL,AMBULATORY DYSFUNCTION Discharge Diagnosis: Recurrent falls secondary to ambulatory dysfunction, right nondisplaced sixth rib fracture, CAD, aortic stenosis-stable, history of paroxysmal atrial tachycardia, hypertension Condition on Discharge: Fair Activity: As commented below Activity Comment: Continue PT and OT Non-emergency contact: Primary Care Provider Call non-emergency contact if: you have any medication questions and your symptoms worsen Follow-up/Referrals: Rey Nation MD [Primary Care Provider] - (Please make an appointment with your PCP within 1 week following discharge from the facility) Diet: Heart Healthy Addtl Attending Provider Instructions: Please take precaution to avoid falls Try to eat use less of narcotics pain medication Pending Studies at Discharge: No Stand-Alone Forms: My [facility] Skilled Items Patient informed of condition?: Yes DNR: No Discharge Level of Care: Skilled Communicable Disease: No Discharge Prognosis: Stable Lines: None Urinary Catheter: No Medications and DC Order Prescriptions: New oxycodone 5 mg Tablet 5 mg PO Q4H PRN (Reason: pain) Qty: 14 RF: 0 lidocaine 5 % Adhesive Patch,Medicated 1 patch transdermal QAM Qty: 15 RF: 0 Continued furosemide [Lasix] 20 mg Tablet 20 mg PO UD RF: 0 loratadine 10 mg Tablet 10 mg PO DAILY RF: 0 magnesium oxide 400 mg magnesium Capsule 400 mg PO DAILY RF: 0 thyroid (pork) [[place] Thyroid] 60 mg Tablet 60 mg PO 3XWK RF: 0 omega-3 fatty acids [Fish Oil Concentrate] 1,000 mg Capsule 1,000 mg PO DAILY RF: 0 coenzyme Q10 100 mg Tablet 100 mg PO DAILY RF: 0 thyroid (pork) [[place] Thyroid] 30 mg tablet 30 mg PO 4XWK RF: 0 cholecalciferol (vitamin D3) 1,000 unit Capsule 1,000 unit PO DAILY RF: 0 ferrous sulfate [iron] 325 mg (65 mg iron) Tablet 325 mg PO DAILY RF: 0 Changed metoprolol succinate 25 mg Tablet Extended Release 24 Hr 12.5 mg PO HS Qty: 0 RF: 0 Discharge Orders: Discharge Order (Routine); Ordered 04/06/20 Ordered By: Kathy Siegel Admission Data Admit Date/Time: 04/05/20 11:57 Attending Provider: Kathy Siegel Admit Provider: Migel Kessler Primary Care Provider: Rey Nation Other Providers: [facility] ; Baldo Yeboah ; Tai Maciel ; Migel Kessler Other Interventions: Discharge Summary Assessment (RN) Last Done: 04/06/20 12:17 DC Date/Time DO NOT enter until pt leaves facility: 04/06/20 13:55
== END 2020-04-06 13:55 | DRG 92 ==
LOC: 2N 16:57 → ED 16:57 → SUATTDRO 22:20 → 2N 23:14 → 3N 04-05 20:34

== ENCOUNTER 2020-04-26 17:02 | Inpatient (IN) ==
--- NOTE | 2020-04-26 17:27 | XRay Report ---
XR chest 1V portable CLINICAL HISTORY: weakness dyspnea COMPARISON STUDY: 05/31/2019 FINDINGS: The bones soft tissues and hemidiaphragms are normal. The cardiomediastinal silhouette is n ormal. The lungs are clear. The pulmonary vasculature is normal. IMPRESSION: Negative chest. ACT 112: Negative or not required by law. The above report was generated using voice recognition software. It may contain grammatical, syntax or spelling errors. Electronically signed by: Estrada Ames M.D. 04/26/2020 5:26 PM
--- NOTE | 2020-04-26 17:37 | Emergency Department Note ---
Impression & Plan Elevated troponin, Falls frequently ED Provider Note NAME: VIDA STONE AGE: 79 SEX: F : 1940 ARRIVES VIA: Ambulance INFORMANT: Patient, ED PROVIDER(S): Gilmer Dietz MD Chief Complaint: Falls HPI: Patient believes that she has been having multiple falls over the last several weeks. The patient does complain of some generalized weakness. The patient denies any numbness tingling or focal weakness. Patient says that after fall she does occasionally have headaches but has taken Tylenol with impro vement. No current headache or pain at this time. The patient denies chest pains or shortness of breath or nausea or vomiting. Patient states that she had a recent COVID test as she had a recent shingles outbreak. The patient was recently discharged from [facility] intake at home. Given the patient's recurrent falls [facility] had referred her in for evaluation. Patient denies any urinary symptoms. Patient states her appetite has been okay. Patient does have occasional left knee pain and abdominal discomfort but states that it has improved after taking a Tylenol earlier today. The patient's last fall was earlier this morning. Patient states she did not strike her head or pass out at this time. ROS: See HPI for pertinent positives and negatives. A total of 10 systems were reviewed and otherwise negative. Past medical history: See below Surgical history: See below Social history: See below Physical Exam: GENERAL: Mask, NAD, non-toxic. EYE EXAM: Normal conjunctiva. PERRL, no anisocoria and EOM's grossly intact w/o pain. NECK: Supple, no nuchal rigidity, no adenopathy, non-tender. No signs of meningismus. LUNGS: Clear to auscultation. Normal chest wall mechanics. HEART: NSR, stock ejection murmur noted. ABDOMEN: Abdomen soft, non-tender, normo-active bowel sounds, no masses, no rebound or guarding. Shingles rash noted. BACK: No CVA TTP. SKIN: Shingles rash over the abdomen UPPER EXTREMITIES: Upper extremities are grossly normal. LOWER EXTREMITIES: Grossly normal, no edema. Well-healed left anterior incisional scar. No ecchymosis redness or swelling noted. Good range of motion compartments are soft. NEURO EXAM: A&O x3, cranial nerves II-XII grossly intact, normal speech, moves all 4 extremities on command w/o issue. Good finger to nose, no drift, no sensory deficits. Differential diagnoses: Infection, dehydration, metabolic abnormality, hypo/h yperglycemia, electrolyte disturbance, anemia, hypoxia, cardiac sources, intracerebral event, toxicologic, neurologic, as well as other pathologies. Course: Patient was seen and evaluated the bedside. Full history physical exam was performed. EKG: Indication: Falls Normal sinus rhythm, rate of 65, normal intervals, normal axis, Q waves inferiorly and anteriorly. No obvious ST changes. No significant changes from April 04, 2020. XR chest 1V portable CLINICAL HISTORY: weakness dyspnea COMPARISON STUDY: 05/31/2019 FINDINGS: The bones soft tissues and hemidiaphragms are normal. The cardio mediastinal silhouette is normal. The lungs are clear. The pulmonary vasculature is normal. IMPRESSION: Negative chest. ACT 112: Negative or not required by law. The above report was generated using voice recognition software. It may contain grammatical, syntax or spelling errors. Electronically signed by: Estrada Ames M.D. 04/26/2020 5:26 PM Dictated: 04/26/201725 Transcribed: 04/26/201725 Imaging Studies: Radiology results as stated below per my review in the radiologist's interpretation: Cardiac monitoring: An order was placed for continuous cardiac monitoring. The monitor shows a rate of 70 with sinus rhythm. MDM: Patient does present with concern for multiple falls. Patient does live at home but does have home health does visit the patient. The patient was recently at [facility]. Patient has a normal white count H&H and platelet count. INR unremarkable. EKG fairly unremarkable. Chest x-ray is clear. Patient has a normal white count H&H and platelet count. Kidney function is slightly worse compared to last with a creatinine of 1 5 compared to 1 1. Patient did have a slightly detectable troponin 0.08. Has been detectable in the past. Patient does have a known history of CAD. Patient currently does not take aspirin due to history of an ulcer. This was initially ordered but then held at this time will continue to trend. Patient was subsequently mated to the [facility]. Patient did not have any EKG changes to warrant additional meds at this time. I did speak with Dr. Crane, [facility]. Past Med/Surg History Medical History Aortic stenosis (Chronic) CAD (coronary artery disease) (Chronic) "s/p stents in 2012" Chronic systolic heart failure (Chronic) CKD (chronic kidney disease), stage III (Chronic) 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) Gastric ulcer (Chronic) GERD (gastroesophageal reflux disease) (Chronic) History of paroxysmal atrial tachycardia Hypertension (Chronic) Hypothyroidism (Chronic) Iron deficiency anemia Ischemic cardiomyopathy (Chronic) Surgical History H/O: hysterectomy (Chronic) S/P angioplasty with stent (Chronic) "06/2013- drug eluting stent to LAD 04/2015- drug eluting stent to ostial RCA" S/P BSO (bilateral salpingo-oophorectomy) (Chronic) S/P TKR (total knee replacement) (Chronic) S/P tonsillectomy and adenoidectomy (Chronic) Family History Father , 73 No problems noted. 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 Beliefs That Will Affect Care: None marital status: Current Living Situation: Alone current occupational status: retired Other Information That Helps Us Care for You: No other: Ambulates with cane Feels Safe at Home: Yes Smoking Status: Never smoker Second Hand Exposure: No ; Hx Alcohol Use: No Hx Substance Use: No Allergies Allergies Allergy/AdvReac Type Severity Reaction Status Date / Time clopidogrel Allergy Mild RASH Verified 04/26/20 22:15 Penicillins Allergy Mild RASH Verified 04/26/20 22:15 tetracycline Allergy Mild UNKNOWN Verified 04/26/20 22:15 ranitidine AdvReac Intermediate PALPITATION Verified 04/26/20 22:15 S lisinopril AdvReac Unknown DRY COUGH Verified 04/26/20 22:15 Home Meds Home Medications Medication Instructions Recorded Confirmed coenzyme Q10 100 mg PO DAILY 05/28/19 04/26/20 omega-3 fatty acids [Fish Oil 1,000 mg PO DAILY 05/28/19 04/26/20 Concentrate] thyroid (pork) [[place] Thyroid] 60 mg PO 3XWK 05/28/19 04/26/20 cholecalciferol (vitamin D3) 1,000 unit PO DAILY 07/25/19 04/26/20 ferrous sulfate [iron] 325 mg PO DAILY 07/25/19 04/26/20 thyroid (pork) [[place] Thyroid] 30 mg PO 4XWK 07/25/19 04/26/20 loratadine 10 mg PO DAILY PRN 04/04/20 04/26/20 magnesium oxide 400 mg PO DAILY 04/04/20 04/26/20 acetaminophen [Tylenol Extra 1,000 mg PO Q6H PRN 04/26/20 04/26/20 Strength] acyclovir 800 mg PO UD 04/26/20 04/26/20 furosemide [Lasix] 20 mg PO 3XWK 04/26/20 04/26/20 Previous Rx's Medication Instructions Recorded metoprolol succinate 12.5 mg PO HS #0 tab 04/06/20 Results & Data (ED) Vital Signs Vital Signs - 24 hr 04/26/20 17:11 04/26/20 17:19 04/26/20 17:20 Temperature 36.2 C L Temperature Source Oral Pulse Rate 66 70 66 Pulse Rate from SpO2 Sensor 67 67 Respiratory Rate 22 20 21 Respiratory Effort / Characteristics Non-Labored Respiratory Depth Normal Blood Pressure 138/85 138/85 Blood Pressure Mean 103 102 Pulse Oximetry 98 97 98 Oxygen Delivery Method Room Air Sepsis Recent Fever Within 48 Hours No Sepsis Action Taken by Nursing No Action Required 04/26/20 17:30 04/26/20 18:00 04/26/20 18:01 Temperature Temperature Source Pulse Rate 73 69 66 Pulse Rate from SpO2 Sensor 72 69 66 Respiratory Rate 17 23 23 Respiratory Effort / Characteristics Respiratory Depth Blood Pressure 141/59 H Blood Pressure Mean 112 Pulse Oximetry 97 99 98 Oxygen Delivery Method Sepsis Recent Fever Within 48 Hours Sepsis Action Taken by Nursing 04/26/20 18:30 04/26/20 19:00 04/26/20 20:00 Temperature Temperature Source Pulse Rate 65 76 71 Pulse Rate from SpO2 Sensor 63 76 70 Respiratory Rate 20 24 21 Respiratory Effort / Characteristics Respiratory Depth Blood Pressure 152/72 H 158/65 H Blood Pressure Mean 104 93 Pulse Oximetry 100 99 98 Oxygen Delivery Method Room Air Room Air Sepsis Recent Fever Within 48 Hours Sepsis Action Taken by Usp Medications Current Medication List: was personally reviewed by me Laboratory Data Attestation: I reviewed the patient's lab results. Result diagrams: 04/26/20 17:57 04/26/20 17:57 Lab Results 04/26/20 04/26/20 04/26/20 Range/Units 17:57 17:57 17:57 WBC 5.61 (4.8-10.8) K/uL RBC 4.63 (4.2-5.4) M/uL Hgb 12.7 (12.0-16.0) g/dL Hct 38.2 (37-47) % MCV 82.5 (80-100) fL MCH 27.4 (25-34) pg MCHC 33.2 (32-36) g/dL RDW Std Deviation 53.2 H (36.4-46.3) fL RDW Coeff of Yvonne 17.6 H (11.5-14.5) % Plt Count 246 (130-400) K/uL MPV 10.9 H (7.4-10.4) fL Immature Gran % (Auto) 0.2 % Neut % (Auto) 50.8 % Lymph % (Auto) 17.3 % Geary % (Auto) 27.8 % Eos % (Auto) 2.7 % Baso % (Auto) 1.2 % Neut # (Auto) 2.85 (1.4-6.5) K/uL Lymph # (Auto) 0.97 L (1.2-3.4) K/uL Geary # (Auto) 1.56 H (0.11-0.59) K/uL Eos # (Auto) 0.15 (0-0.5) K/uL Baso # (Auto) 0.07 (0-0.2) K/uL Immature Gran # (Auto) 0.01 (0.00-0.02) K/uL PT 11.4 (9.0-12.0) Seconds INR 1.1 (0.9-1.1) Sodium 139 (136-145) mmol/L Potassium 4.2 (3.5-5.1) mmol/L Chloride 109 H (98-107) mmol/L Carbon Dioxide 24 (21-32) mmol/L Anion Gap 6.0 (3-11) BUN 30 H (7-18) mg/dl Creatinine 1.54 H (0.6-1.2) mg/dl Est Cr Clr Drug Dosing 26.0 ml/min Est GFR ( Amer) 36.3 Est GFR (Non-Af Amer) 31.3 BUN/Creatinine Ratio 19.2 (10-20) Glucose 93 (70-99) mg/dl Calcium 8.9 (8.5-10.1) mg/dl Magnesium 2.2 (1.8-2.4) mg/dl Total Bilirubin 0.3 (0.2-1) mg/dl AST 39 H (15-37) U/L ALT 36 (12-78) U/L Alkaline Phosphatase 103 (45-117) U/L Troponin I 0.087 H* (0-0.045) ng/ml Total Protein 8.0 (6.4-8.2) gm/dl Albumin 3.4 (3.4-5.0) gm/dl Globulin 4.6 H (2.5-4.0) gm/dl Albumin/Globulin Ratio 0.7 L (0.9-2) TSH 0.932 (0.300-4.500) uIu/ml Administered Medications Sodium Chloride (Nss 1000ml) 1,000 mls @ 80 mls/hr IV .[id number] BRITANY Stop: 04/27/20 09:59 Last Admin: 04/26/20 22:52 Dose: 80 mls/hr Documented by: [id number] Discontinued Medications Aspirin (Aspirin) 324 mg PO NOW STA Stop: 04/26/20 20:22 Last Admin: 04/26/20 21:41 Dose: Not Given Documented by: [id number] Discharge Plan Visit Data *Final* Discharge Date/Time: 04/26/20 21:31 Chief Complaint: Fall Stated Complaint: FALLS, HOME HEALTH WANTS EVAL ED Provider: Gilmer Dietz Discharge Problem: Elevated troponin, Falls frequently Patient Disposition: Admitted As Inpatient Discharge Instructions Interventions: ED Discharge Assessment Last Done: 04/26/20 21:31
[2020-04-26 18:07] LABS: Basophils # (auto) 0.07 K/uL (0-0.2); Basophils % (auto) 1.2 %; Eosinophils # (auto) 0.15 K/uL (0-0.5); Eosinophils % (auto) 2.7 %; Hematocrit (blood only) 38.2 % (37-47); Hemoglobin 12.7 g/dL (12.0-16.0); Immature Granulocytes # (auto) 0.01 K/uL (0.00-0.02); Immature Granulocytes % (auto) 0.2 %; Lymphocytes # (auto) 0.97 K/uL (1.2-3.4); Lymphocytes % (auto) 17.3 %; Mean Corpuscular Hemoglobin 27.4 pg (25-34); Mean Corpuscular Hgb Conc 33.2 g/dL (32-36); Mean Corpuscular Volume 82.5 fL (80-100); Mean Platelet Volume 10.9 fL (7.4-10.4); Monocytes # (auto) 1.56 K/uL (0.11-0.59); Monocytes % (auto) 27.8 %; Neutrophils # (auto) 2.85 K/uL (1.4-6.5); Neutrophils % (auto) 50.8 %; Platelet Count 246 K/uL (130-400); RDW Coefficient of Variation 17.6 % (11.5-14.5); RDW Standard Deviation 53.2 fL (36.4-46.3); Red Blood Count 4.63 M/uL (4.2-5.4); White Blood Count 5.61 K/uL (4.8-10.8)
[2020-04-26 18:16] LABS: INR 1.1 (0.9-1.1); Prothrombin Time 11.4 Seconds (9.0-12.0)
[2020-04-26 18:29] LABS: Albumin Level 3.4 gm/dl (3.4-5.0); BUN Creatinine Ratio 19.2 (10-20); Calcium 8.9 mg/dl (8.5-10.1); Est GFR (African American) 36.3; Est GFR (Non-African American) 31.3; Magnesium 2.2 mg/dl (1.8-2.4); Potassium 4.2 mmol/L (3.5-5.1)
[2020-04-26 18:47] LABS: Albumin Globulin Ratio 0.7 (0.9-2); Bilirubin,Total 0.3 mg/dl (0.2-1); Globulin 4.6 gm/dl (2.5-4.0); Thyroid Stimulating Hormone 0.932 uIu/ml (0.300-4.500); Troponin I 0.087 ng/ml (0-0.045)
--- NOTE | 2020-04-26 20:01 | CT Scan Report ---
CT head/brain wo con CT DOSE: 537.48 mGy.cm HISTORY: Trauma. Mental status change. falls TECHNIQUE: Multiaxial CT images of the head were performed without the use of intravenous contrast. A dose lowering technique was utilized adhering to the principles of ALARA. Comparison: 04/04/2020 Findings: Minimal sclerosis of components of the posterior mastoid air cells bilaterally. The remaini ng air cells are clear. Mild age-related atrophy and chronic small vessel change. Ventricular system is midline. There is no evidence for acute intracranial hemorrhage. The calvarium and skull base are intact. The ventricles a nd sulci are within normal limits. There is no mass, hematoma, midline shift, or acute infarct. Impression: 1. Age-related chronic small vessel and atrophy-like change. 2. No acute intracranial abnormality. 3. 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 ACT 112: Negative or not required by law. The above report was generated using voice recognition software. It may contain grammatical, syntax or spelling errors. Electronically signed by: Estrada Ames M.D. 04/26/2020 8:00 PM
[2020-04-26] MEDS ORDERED: ASPIRIN CHEW 324 MG PO STA (20:21)
[2020-04-26] MEDS ORDERED: ONDANSETRON INJ 2 MG/ML 2 ML VIAL IV PRN (21:11)
--- NOTE | 2020-04-26 21:20 | History & Physical Report ---
Date of Service April 26, 2020 Assessment & Plan (1) Recurrent falls: -79 y/o F with PMH CAD s/p stent, aortic stenosis, chronic systolic and diastolic heart failure, HTN, dyslipidemia, CKD III, GERD, iron deficiency anemia, hypothyroidism who was discharged from [facility] on 04/07/2020 after admission for right 6th rib fracture and then completed physical rehabilitation stay at [facility] on 04/23/2020. Patient uses walker but has been having recurrent falls at home in including recent falls that involved her hitting her head. She appears to describe these falls as loss of balance and her legs would go backwards. She denies any prodomal symptoms or loss of consc iousness. She presents to [facility] on 04/26/2020 with her daughter for further evaluation. In addition, patient has been recently diagnosed with shingles outbreak and not yet started on her filled medication of Acyclovir. There are mildly elevated initially troponin of 0.087 but patient denies any chest pain or palpitations or dizziness or headache or problems with breathing or nausea or abdominal pain. Review of her labs on previous admission showed some mildly elevated troponin as well. Denies fevers, diarrhea, or vomiting -will need PT/OT evaluation, case management evaluation -check B12 levels and folic acid levels (2) Shingles outbreak: -patient was recently diagnosed with shingles outbreak - shingles distribution rash pattern from middle of abdomen to the left posterior back; she was given prescription of Acyclovir as 800 mg five times a day for 7 day course as verified with [facility] pharmacy in [place] however patient has not started taking the pills at home. -contact precautions as there are still vesicles of shingles on the skin at time of admission -acyclovir ordered -prn pain medications History of nondisplaced fracture of right 6th rib -prn pain medications (3) Hypothyroidism: -continue [place] Thyroid which alternates between 30 mg and 60 mg daily doses (4) CKD (chronic kidney disease), stage III: Acute Kidney disease on chronic kidney disease stage III -admission creatinine 1.58 -give 80 cc/hr normal saline for 1 bag of 1000 ml Aortic stenosis CAD (coronary artery disease) S/P stent in the past History of paroxysmal atrial tachycardia: History of Combined systolic and diastolic congestive heart failure congestive heart failure -outpatient echo 03/24/2020: Moderate to severe aortic stenosis, EF: 47%, grade 1 diastolic dysfunction -no acute pulmonary edema on admission chest X ray -hold Lasix 20 mg (she reports she takes as every other day) for now while following the creatinine -history of mildly elevated troponins in the past admission, initial troponin is 0.087 and no chest pain, trend the troponins, monitor on telemetry -Continue metoprolol -monitor blood pressure DVT prophylaxis: SCDs Code Status: DNR/DNI as per my discussion with patient in presence of her daughter Daughter Aaliyah (her cell phone is [phone], her work and emergency contact number is [phone]) History of Present Illness 79 y/o F with PMH CAD s/p stent, aortic stenosis, chronic systolic and diastolic heart failure, HTN, dyslipidemia, CKD III, GERD, iron deficiency anemia, hypothyroidism who was discharged from [facility] on 04/07/2020 after admission for right 6th rib fracture and then completed physical rehabilitation stay at [facility] on 04/23/2020. Patient uses walker but has been having recurrent falls at home in including recent falls that involved her hitting her head. She appears to describe these falls as loss of balance and her legs would go backwards. She denies any prodomal symptoms or loss of consciousness. She presents to [facility] on 04/26/2020 with her daughter for further evaluation. In addition, patient has been recently diagnosed with shingles outbreak and not yet started on her filled medication of Acyclovir. There are mildly elevated initially troponin of 0.087 but patient denies any chest pain or palpitations or dizziness or headache or problems with breathing or nausea or abdominal pain. Review of her labs on previous admission showed some mildly elevated troponin as well. Denies fevers, diarrhea, or vomiting Primary Care Provider: Rey Nation MD Allergies Allergy/AdvReac Type Severity Reaction Status Date / Time clopidogrel Allergy Mild RASH Verified 04/04/20 18:30 Penicillins Allergy Mild RASH Verified 04/04/20 18:30 tetracycline Allergy Mild UNKNOWN Verified 04/04/20 18:30 ranitidine AdvReac Intermediate PALPITATION Verified 04/04/20 18:30 S lisinopril AdvReac Unknown DRY COUGH Verified 04/04/20 18:30 Home Medications Home Medications Medication Instructions Recorded Confirmed Type coenzyme Q10 100 mg PO DAILY 05/28/19 04/04/20 History omega-3 fatty acids [Fish Oil 1,000 mg PO DAILY 05/28/19 04/04/20 History Concentrate] thyroid (pork) [[place] Thyroid] 60 mg PO 3XWK 05/28/19 04/04/20 History cholecalciferol (vitamin D3) 1,000 unit PO DAILY 07/25/19 04/04/20 History ferrous sulfate [iron] 325 mg PO DAILY 07/25/19 04/04/20 History thyroid (pork) [[place] Thyroid] 30 mg PO 4XWK 07/25/19 04/04/20 History furosemide [Lasix] 20 mg PO UD 04/04/20 04/04/20 History loratadine 10 mg PO DAILY 04/04/20 04/04/20 History magnesium oxide 400 mg PO DAILY 04/04/20 04/04/20 History lidocaine 1 patch TRANSDERMAL QAM #15 ea 04/06/20 Rx metoprolol succinate 12.5 mg PO HS #0 tab 04/06/20 04/04/20 Rx oxycodone 5 mg PO Q4H PRN #14 tab 04/06/20 Rx Past Med/Surg History Medical History Aortic stenosis (Chronic) CAD (coronary artery disease) (Chronic) "s/p stents in 2012" Chronic systolic heart failure (Chronic) CKD (chronic kidney disease), stage III (Chronic) 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) Gastric ulcer (Chronic) GERD (gastroesophageal reflux disease) (Chronic) History of paroxysmal atrial tachycardia Hypertension (Chronic) Hypothyroidism (Chronic) Iron deficiency anemia Ischemic cardiomyopathy (Chronic) Surgical History H/O: hysterectomy (Chronic) S/P angioplasty with stent (Chronic) "06/2013- drug eluting stent to LAD 04/2015- drug eluting stent to ostial RCA" S/P BSO (bilateral salpingo-oophorectomy) (Chronic) S/P TKR (total knee replacement) (Chronic) S/P tonsillectomy and adenoidectomy (Chronic) Family History Father , 73 No problems noted. Mother , 73 Kidney disease Coronary heart disease Cancer Kidney Diabetes Sister , 62 Colorectal cancer Social History Preferred Language: Tongan Communication Ability: Impaired Technician Support Association Required: No Beliefs That Will Affect Care: None marital status: Current Living Situation: Alone current occupational status: retired other: Ambulates with cane Feels Safe at Home: Yes Smoking Status: Never smoker Second Hand Exposure: No ; Hx Alcohol Use: No Hx Substance Use: No Review of Systems Review of Systems: All systems reviewed & are unremarkable except as noted in Subjective Physical Exam Constitutional: cooperative and comfortable Eyes: PERRL, conjunctivae normal, anicteric sclerae EOM intact bilaterally ENMT: external ear and nose normal, oropharynx normal Neck: trachea midline, no thyromegaly normal visual inspection Respiratory: normal respiratory effort, lungs clear to auscultation Cardiovascular: Rate/Rhythm: regular rate and regular rhythm Gastrointestinal (Abdomen): normal bowel sounds, soft, nontender, no hepato splenomegaly Skin: shingles distribution rash pattern from middle of abdomen to the left posterior back Neurologic: PERRL, EOMI, accommodation nl, no face palsy, no dysarthria moves all extremities Psychiatric: A+Ox3, euthymic affect Results & Data Results & Data ([facility]) Vital Signs (Past 12 Hours) Vital Signs Temp Pulse Resp BP Pulse Ox 04/26/20 20:00 71 21 158/65 H 98 04/26/20 19:00 76 24 152/72 H 99 04/26/20 18:30 65 20 100 04/26/20 18:01 66 23 98 04/26/20 18:00 69 23 141/59 H 99 04/26/20 17:30 73 17 97 04/26/20 17:20 66 21 98 04/26/20 17:19 36.2 C L 70 20 138/85 97 04/26/20 17:11 66 22 138/85 98 Code Status & VTE Plan VTE Prophylaxis Plan VTE Prophylaxis will be ordered: Yes
[2020-04-26] MEDS ORDERED: SODIUM CHLORIDE 0.9% 1000ML 1,000 ML IV SCH (21:30)
[2020-04-27] MEDS: ACYCLOVIR 200 MG CAP PO SCH ×6 (00:29→22:29)
[2020-04-27 02:09] LABS: Basophils # (auto) 0.06 K/uL (0-0.2); Eosinophils # (auto) 0.13 K/uL (0-0.5); Eosinophils % (auto) 2.3 %; Hematocrit (blood only) 35.5 % (37-47); Hemoglobin 11.7 g/dL (12.0-16.0); Immature Granulocytes # (auto) 0.01 K/uL (0.00-0.02); Immature Granulocytes % (auto) 0.2 %; Lymphocytes # (auto) 1.78 K/uL (1.2-3.4); Lymphocytes % (auto) 30.9 %; Mean Corpuscular Hemoglobin 27.1 pg (25-34); Mean Corpuscular Volume 82.2 fL (80-100); Mean Platelet Volume 10.4 fL (7.4-10.4); Monocytes # (auto) 1.36 K/uL (0.11-0.59); Monocytes % (auto) 23.6 %; Neutrophils # (auto) 2.42 K/uL (1.4-6.5); Platelet Count 230 K/uL (130-400); RDW Coefficient of Variation 17.5 % (11.5-14.5); RDW Standard Deviation 53.3 fL (36.4-46.3); Red Blood Count 4.32 M/uL (4.2-5.4); White Blood Count 5.76 K/uL (4.8-10.8)
[2020-04-27 02:33] LABS: Magnesium 2.1 mg/dl (1.8-2.4); Troponin I 0.08 ng/ml (0-0.045)
[2020-04-27 02:45] LABS: Folate (Folic Acid) 14.45 ng/ml (>5.38)
[2020-04-27] MEDS: ARMOUR THYROID 30 MG TAB PO SCH (06:06)
[2020-04-27 06:12] LABS: Estimated Average Glucose 120 mg/dl; Hemoglobin A1C 5.8 % (4.5-5.6)
--- NOTE | 2020-04-27 08:18 | Electrocardiogram Report ---
Test Reason : Blood Pressure : / mmHG Vent. 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
[2020-04-27] MEDS: CHOLECALCIFEROL 1,000 UNITS 25 MCG TAB PO SCH (08:26)
[2020-04-27] MEDS: FERROUS SULFATE 325 MG TAB PO SCH (08:26)
[2020-04-27] MEDS: ACETAMINOPHEN 325 MG TAB PO PRN (08:26)
[2020-04-27] MEDS: OMEGA-3 (PURIFIED FISH OIL) 1 GM CAP PO SCH (08:26)
[2020-04-27] MEDS ORDERED: NON-FORMULARY MEDICATION (Ferrous Sulfate [Iron] 325 MG) PO SCH (09:00)
[2020-04-27 11:36] LABS: BUN Creatinine Ratio 19.8 (10-20); Calcium 8.4 mg/dl (8.5-10.1); Creatinine Clr Calc Pharmacy 31.4 ml/min; Est GFR (African American) 47.2; Est GFR (Non-African American) 40.7; Potassium 3.8 mmol/L (3.5-5.1)
--- NOTE | 2020-04-27 19:01 | Hospitalist Progress Note ---
Date of Service April 27, 2020 Assessment & Plan (1) Recurrent falls: Present on admission with recurrent episodes of falls CT head showed no acute intracranial abnormality. B12 and folic acid normal PT/OT eval Fall precaution (2) Shingles outbreak: Continue Acyclovic 800 q5h On contact and airbone precaution (3) Elevated troponin: Possible related to elevate creatinine Troponin on admission 0.087, then 0.080 EKG showed no ischemic changed Asymptomatic Continue metoprolol (4) Hypothyroidism: -continue [place] Thyroid which alternates between 30 mg and 60 mg daily doses (5) CKD (chronic kidney disease), stage III: Acute kidney injury Creatinine 1.58 on admission Received IV fluid Creatinine 1.2 today Avoid nephrotoxic agents Continue to hold lasix Contijnue monitor BMP Aortic stenosis CAD (coronary artery disease) S/P stent in the past History of paroxysmal atrial tachycardia: History of Combined systolic and diastolic congestive heart failure congestive heart failure outpatient echo 03/24/2020: Moderate to severe aortic stenosis, EF: 47%, grade 1 diastolic dysfunction Stable DVT prophylaxis: SCDs Code Status: DNR/DNI Daughter Aailyah (her cell phone is [phone], her work and emergency contact number is [phone]) Admission and Anticipated Discharge Date Admission Date: April 26, 2020 Subjective Pt was seen and examined Sitting in the recliner with no distress Pt said that she feels ok She said that she feels bored Denies any chest pain, palpitation, dizziness and SOB Physical Exam Physical Exam: General- No acute distress Head- atraumatic Eyes- PERRL, EOMI, ENT- oropharynx clear Neck- supple, no JVD Lungs- clear to auscultation Heart- regular rhythm; +murmur Abdomen- normal bowel sounds, soft, nontender Extremities- no calf tenderness Neuro- alert, oriented x 3; PERRL, EOMI; no facial palsy; no dysarthria Skin- warm & dry, rash in the middle of abdomen and left posterior back area Results & Data Results & Data ([facility]) Vital Signs (Past 12 Hours) Vital Signs Temp Pulse Pulse Resp BP BP Pulse Ox 04/27/20 16:00 82 04/27/20 15:45 36.8 C 62 18 134/66 99 04/27/20 11:47 37 C 67 18 114/75 96 04/27/20 08:45 61 04/27/20 07:43 37.0 C 66 16 135/71 97
[2020-04-27] MEDS: METOPROLOL SUCC 25MG EXT REL TAB PO SCH (21:05)
[2020-04-27 21:58] LABS: Appearance Urine Clear (Clear); Bilirubin Urine Negative (Negative); Blood Urine Negative (Negative); Color Urine Yellow; Glucose Urine UA Negative (Negative); Ketones Urine Negative (Negative); Leukocyte Esterase Urine Negative (Negative); Nitrite Urine Negative (Negative); Protein Urine Negative (Negative); Specific Gravity Urine 1.018 (1.000-1.030); Urobilinogen Urine Negative (Negative)
[2020-04-28 01:48] LABS: Basophils # (auto) 0.08 K/uL (0-0.2); Eosinophils # (auto) 0.14 K/uL (0-0.5); Eosinophils % (auto) 1.7 %; Hemoglobin 11.5 g/dL (12.0-16.0); Immature Granulocytes # (auto) 0.02 K/uL (0.00-0.02); Immature Granulocytes % (auto) 0.2 %; Lymphocytes # (auto) 2.81 K/uL (1.2-3.4); Lymphocytes % (auto) 34.8 %; Mean Corpuscular Hemoglobin 26.6 pg (25-34); Mean Corpuscular Hgb Conc 31.9 g/dL (32-36); Mean Corpuscular Volume 83.1 fL (80-100); Mean Platelet Volume 10.4 fL (7.4-10.4); Monocytes # (auto) 1.23 K/uL (0.11-0.59); Monocytes % (auto) 15.2 %; Neutrophils # (auto) 3.79 K/uL (1.4-6.5); Neutrophils % (auto) 47.1 %; Platelet Count 226 K/uL (130-400); RDW Coefficient of Variation 17.2 % (11.5-14.5); RDW Standard Deviation 53.1 fL (36.4-46.3); Red Blood Count 4.33 M/uL (4.2-5.4); White Blood Count 8.07 K/uL (4.8-10.8)
[2020-04-28] MEDS ORDERED: MAGNESIUM SULFATE / D5W 1 GM/100 ML BAG IV SCH (02:00)
[2020-04-28] MEDS ORDERED: POTASSIUM CHLORIDE 20 MEQ TABCR PO ONE (02:00)
[2020-04-28 02:06] LABS: Calcium 8.4 mg/dl (8.5-10.1); Creatinine Clr Calc Pharmacy 31.9 ml/min; Est GFR (African American) 48.1; Est GFR (Non-African American) 41.5; Magnesium 1.9 mg/dl (1.8-2.4); Potassium 3.9 mmol/L (3.5-5.1)
[2020-04-28] MEDS ORDERED: NORMOSOL-R 1,000 ML IV ONE (02:11)
[2020-04-28] MEDS ORDERED: MAGNESIUM SULFATE / D5W 1 GM/100 ML BAG IV ONE (02:24)
[2020-04-28] MEDS: ACYCLOVIR 200 MG CAP PO SCH ×5 (05:51→21:56)
[2020-04-28] MEDS: ARMOUR THYROID 30 MG TAB PO SCH (05:51)
[2020-04-28] MEDS: FERROUS SULFATE 325 MG TAB PO SCH (09:36)
[2020-04-28] MEDS: OMEGA-3 (PURIFIED FISH OIL) 1 GM CAP PO SCH (09:36)
[2020-04-28] MEDS: CHOLECALCIFEROL 1,000 UNITS 25 MCG TAB PO SCH (09:36)
[2020-04-28] MEDS: ACETAMINOPHEN 325 MG TAB PO PRN (10:16)
--- NOTE | 2020-04-28 18:44 | Hospitalist Progress Note ---
Date of Service April 28, 2020 Assessment & Plan (1) Recurrent falls: Present on admission with recurrent episodes of falls CT head showed no acute intracranial abnormality. B12 and folic acid normal PT/OT eval Fall precaution Plan to go to rehab Waiting for COVID 19 screening result (2) Shingles outbreak: Continue Acyclovic 800 q5h On contact and airbone precaution (3) Elevated troponin: Possible related to elevate creatinine Troponin on admission 0.087, then 0.080 EKG showed no ischemic changed Asymptomatic Continue metoprolol (4) Hypothyroidism: -continue [place] Thyroid which alternates between 30 mg and 60 mg daily doses (5) CKD (chronic kidney disease), stage III: Acute kidney injury Creatinine 1.58 on admission Received IV fluid Creatinine 1.2 today Avoid nephrotoxic agents Will resume lasix in am Continue monitor BMP Aortic stenosis CAD (coronary artery disease) S/P stent in the past History of paroxysmal atrial tachycardia: History of Combined systolic and diastolic congestive heart failure congestive heart failure outpatient echo 03/24/2020: Moderate to severe aortic stenosis, EF: 47%, grade 1 diastolic dysfunction Stable DVT prophylaxis: SCDs Code Status: DNR/DNI Daughter Aaliyah (her cell phone is [phone], her work and emergency contact number is [phone]) Admission and Anticipated Discharge Date Admission Date: April 26, 2020 Subjective Pt was seen and examined Lying on the recliner with no distress Denies any new complaint Physical Exam Physical Exam: General- No acute distress Head- atraumatic Eyes- PERRL, EOMI, ENT- oropharynx clear Neck- supple, no JVD Lungs- clear to auscultation Heart- regular rhythm; +murmur Abdomen- normal bowel sounds, soft, nontender Extremities- no calf tenderness Neuro- alert, oriented x 3; PERRL, EOMI; no facial palsy; no dysarthria Skin- warm & dry, rash in the middle of abdomen and left posterior back area Results & Data Results & Data ([facility]) Vital Signs (Past 12 Hours) Vital Signs Temp Pulse Pulse Resp BP Pulse Ox 04/28/20 16:00 66 04/28/20 15:37 36.6 C 58 L 18 145/72 H 98 04/28/20 07:47 36.6 C 73 16 123/64 96 04/28/20 07:27 74
[2020-04-28] MEDS: METOPROLOL SUCC 25MG EXT REL TAB PO SCH (19:56)
[2020-04-29] MEDS: ARMOUR THYROID 30 MG TAB PO SCH (06:22)
[2020-04-29] MEDS: ACYCLOVIR 200 MG CAP PO SCH ×5 (06:22→23:40)
[2020-04-29] MEDS: ACETAMINOPHEN 325 MG TAB PO PRN ×2 (08:16→18:07)
[2020-04-29] MEDS: CHOLECALCIFEROL 1,000 UNITS 25 MCG TAB PO SCH (08:16)
[2020-04-29] MEDS: OMEGA-3 (PURIFIED FISH OIL) 1 GM CAP PO SCH (08:16)
[2020-04-29] MEDS: FERROUS SULFATE 325 MG TAB PO SCH (08:16)
--- NOTE | 2020-04-29 18:18 | Hospitalist Progress Note ---
Date of Service April 29, 2020 Assessment & Plan (1) Recurrent falls: Present on admission with recurrent episodes of falls CT head showed no acute intracranial abnormality. B12 and folic acid normal PT/OT eval Fall precaution Plan to go to rehab Waiting for COVID 19 screening result (2) Shingles outbreak: Continue Acyclovic 800 q5h On contact and airbone precaution (3) Elevated troponin: Possible related to elevate creatinine Troponin on admission 0.087, then 0.080 EKG showed no ischemic changed Asymptomatic Continue metoprolol (4) Hypothyroidism: -continue [place] Thyroid which alternates between 30 mg and 60 mg daily doses (5) CKD (chronic kidney disease), stage III: Acute kidney injury Creatinine 1.58 on admission Received IV fluid Creatinine 1.2 today Avoid nephrotoxic agents Will resume lasix in am Continue monitor BMP Aortic stenosis CAD (coronary artery disease) S/P stent in the past History of paroxysmal atrial tachycardia: History of Combined systolic and diastolic congestive heart failure congestive heart failure outpatient echo 03/24/2020: Moderate to severe aortic stenosis, EF: 47%, grade 1 diastolic dysfunction Stable DVT prophylaxis: SCDs Code Status: DNR/DNI Daughter Aaliyah (her cell phone is [phone], her work and emergency contact number is [phone]) Admission and Anticipated Discharge Date Admission Date: April 26, 2020 Subjective Pt was seen and examined Lying in bed with no distress Pt said that she feels fine Denies any chest pain, palpitation and SOB Physical Exam Physical Exam: General- No acute distress Head- atraumatic Eyes- PERRL, EOMI, ENT- oropharynx clear Neck- supple, no JVD Lungs- clear to auscultation Heart- regular rhythm; +murmur Abdomen- normal bowel sounds, soft, nontender Extremities- no calf tenderness Neuro- alert, oriented x 3; PERRL, EOMI; no facial palsy; no dysarthria Skin- warm & dry, vesicles rash in the middle of abdomen and left posterior back area Results & Data Results & Data ([facility]) Vital Signs (Past 12 Hours) Vital Signs Temp Pulse Pulse Resp BP BP Pulse Ox 04/29/20 15:48 36.6 C 57 L 20 139/80 99 04/29/20 11:24 36.6 C 62 16 105/61 91 04/29/20 08:43 60 04/29/20 08:10 36.6 C 63 18 143/73 H 98
[2020-04-29] MEDS ORDERED: FUROSEMIDE 20 MG TAB PO ONE (18:21)
[2020-04-29] MEDS: METOPROLOL SUCC 25MG EXT REL TAB PO SCH (20:09)
[2020-04-30] MEDS: OXYCODONE HCL IR 5 MG TAB (IMMEDIATE RELEASE) PO PRN ×2 (02:26→18:35)
[2020-04-30] MEDS: ACYCLOVIR 200 MG CAP PO SCH ×5 (06:23→22:46)
[2020-04-30] MEDS: ARMOUR THYROID 30 MG TAB PO SCH (06:23)
[2020-04-30 08:36] LABS: BUN Creatinine Ratio 21.3 (10-20); Calcium 8.8 mg/dl (8.5-10.1); Creatinine Clr Calc Pharmacy 34.5 ml/min; Est GFR (African American) 54.5; Potassium 4.1 mmol/L (3.5-5.1)
[2020-04-30] MEDS: CHOLECALCIFEROL 1,000 UNITS 25 MCG TAB PO SCH (09:19)
[2020-04-30] MEDS: OMEGA-3 (PURIFIED FISH OIL) 1 GM CAP PO SCH (09:19)
[2020-04-30] MEDS: ACETAMINOPHEN 325 MG TAB PO PRN ×2 (09:19→22:46)
[2020-04-30] MEDS: FERROUS SULFATE 325 MG TAB PO SCH (09:19)
--- NOTE | 2020-04-30 17:55 | Hospitalist Progress Note ---
Date of Service April 30, 2020 Assessment & Plan (1) Recurrent falls: Present on admission with recurrent episodes of falls CT head showed no acute intracranial abnormality. B12 and folic acid normal PT/OT eval Fall precaution Plan to go to rehab COVID 19 screening negative (2) Shingles outbreak: Continue Acyclovic 800 q5h On contact and airbone precaution (3) Elevated troponin: Possible related to elevate creatinine Troponin on admission 0.087, then 0.080 EKG showed no ischemic changed Asymptomatic Continue metoprolol (4) Hypothyroidism: -continue [place] Thyroid which alternates between 30 mg and 60 mg daily doses (5) CKD (chronic kidney disease), stage III: Acute kidney injury Creatinine 1.58 on admission Received IV fluid Creatinine 1.2 today Avoid nephrotoxic agents Will resume lasix in am Continue monitor BMP Aortic stenosis CAD (coronary artery disease) S/P stent in the past History of paroxysmal atrial tachycardia: History of Combined systolic and diastolic congestive heart failure congestive heart failure outpatient echo 03/24/2020: Moderate to severe aortic stenosis, EF: 47%, grade 1 diastolic dysfunction Continue Lasix 20mg 3xwk Stable DVT prophylaxis: SCDs Code Status: DNR/DNI Daughter Aaliyah (her cell phone is [phone], her work and emergency contact number is [phone]) Admission and Anticipated Discharge Date Admission Date: April 26, 2020 Subjective Pt was seen and examined Lying in bed with no distress watching TV Pt said that she feels much better She said that her appetite is good Denies any chest pain, palpitation, dizziness and SOB Physical Exam Physical Exam: General- No acute distress Head- atraumatic Eyes- PERRL, EOMI, ENT- oropharynx clear Neck- supple, no JVD Lungs- clear to auscultation Heart- regular rhythm; +murmur Abdomen- normal bowel sounds, soft, nontender Extremities- no calf tenderness Neuro- alert, oriented x 3; PERRL, EOMI; no facial palsy; no dysarthria Skin- warm & dry, vesicles rash broke in the middle of abdomen and left posterior back area Results & Data Results & Data ([facility]) Vital Signs (Past 12 Hours) Vital Signs Temp Pulse Pulse Resp BP Pulse Ox 04/30/20 14:57 60 04/30/20 11:32 36.5 C 57 L 16 95/62 L 99 07/05/20 07:39 36.5 C 50 L 16 113/56 L 98 04/30/20 07:00 69
[2020-04-30] MEDS: METOPROLOL SUCC 25MG EXT REL TAB PO SCH (22:45)
[2020-05-01] MEDS: ARMOUR THYROID 30 MG TAB PO SCH (06:12)
[2020-05-01] MEDS: ACYCLOVIR 200 MG CAP PO SCH ×3 (06:48→14:22)
[2020-05-01] MEDS: OMEGA-3 (PURIFIED FISH OIL) 1 GM CAP PO SCH (09:05)
[2020-05-01] MEDS: OXYCODONE HCL IR 5 MG TAB (IMMEDIATE RELEASE) PO PRN (09:05)
[2020-05-01] MEDS: FERROUS SULFATE 325 MG TAB PO SCH (09:05)
[2020-05-01] MEDS: CHOLECALCIFEROL 1,000 UNITS 25 MCG TAB PO SCH (09:05)
--- NOTE | 2020-05-01 13:07 | Hospitalist Progress Note ---
Date of Service May 01, 2020 Assessment & Plan (1) Recurrent falls: Present on admission with recurrent episodes of falls CT head showed no acute intracranial abnormality. B12 and folic acid normal PT/OT eval Fall precaution COVID 19 screening negative Plan to go to rehab today (2) Shingles outbreak: Continue Acyclovir 800 q5h to complete 7 days course On contact and airborne precaution (3) Elevated troponin: Possible related to elevate creatinine Troponin on admission 0.087, then 0.080 EKG showed no ischemic changed Continue Metoprolol 12.5 HS Asymptomatic (4) Hypothyroidism: continue [place] Thyroid which alternates between 30 mg and 60 mg daily doses (5) CKD (chronic kidney disease), stage III: Acute kidney injury Creatinine 1.58 on admission Received IV fluid Creatinine 1.2 Avoid nephrotoxic agents Continue Lasix 3xweekly Check BMP in 1 week Bradycardia Asymptomatic Tele monitor showed no pause or arrhythmia Since pt has history of paroxysmal atrial tachycardia, we will continue the low dose metoprolol If she becomes symptomatic, will consider to cut metoprolol to half or to hold it Since pt is discharging to [facility] for therapy and hx of paroxysmal Atrial tach, her HR might start to increase Continue monitor and adjust metoprolol if needs Aortic stenosis CAD (coronary artery disease) S/P stent in the past History of paroxysmal atrial tachycardia: History of Combined systolic and diastolic congestive heart failure congestive heart failure outpatient echo 03/24/2020: Moderate to severe aortic stenosis, EF: 47%, grade 1 diastolic dysfunction Continue Lasix 20mg 3xwk Stable DVT prophylaxis: SCDs Code Status: DNR/DNI Disposition Discharge to [facility] today COVID 19 negative Daughter Aaliyah (her cell phone is [phone], her work and emergency contact number is [phone]) Admission and Anticipated Discharge Date Admission Date: April 26, 2020 Subjective Pt was seen and examined Sitting in the recliner with no distress Pt said that she feels a little tired She said that she is having pain around the area of the rash Denies any chest pain, palpitation, dizziness and SOB Physical Exam Physical Exam: General- No acute distress Head- atraumatic Eyes- PERRL, EOMI, ENT- oropharynx clear Neck- supple, no JVD Lungs- clear to auscultation Heart- regular rhythm; +murmur Abdomen- normal bowel sounds, soft, nontender Extremities- no calf tenderness Neuro- alert, oriented x 3; PERRL, EOMI; no facial palsy; no dysarthria Skin- warm & dry, vesicles rash broke in the middle of abdomen and left posterior back area Results & Data Results & Data ([facility]) Vital Signs (Past 12 Hours) Vital Signs Temp Pulse Pulse Resp BP BP Pulse Ox 05/01/20 10:40 36.5 C 49 L 16 127/62 115/64 99 05/01/20 07:29 51 L 05/01/20 07:25 36.5 C 49 L 16 115/64 99 05/01/20 04:10 36.5 C 60 18 127/62 98
[2020-05-01] MEDS ORDERED: FUROSEMIDE 20 MG TAB PO ONE (13:21)
[2020-05-01] MEDS ORDERED: LIDOCAINE 5% 1 PATCH TD SCH (13:30)
--- NOTE | 2020-05-01 13:59 | Discharge Summary ---
Date of Service May 01, 2020 Admission HPI Per Admitting Provider 79 y/o F with PMH CAD s/p stent, aortic stenosis, chronic systolic and diastolic heart failure, HTN, dyslipidemia, CKD III, GERD, iron deficiency anemia, hypothyroidism who was discharged from [facility] on 04/07/2020 after admission for right 6th rib fracture and then completed physical rehabilitation stay at [facility] on 04/23/2020. Patient uses walker but has been having recurrent falls at home in including recent falls that involved her hitting her head. She appears to describe these falls as loss of balance and her legs would go backwards. She denies any prodomal symptoms or loss of con sciousness. She presents to [facility] on 04/26/2020 with her daughter for further evaluation. In addition, patient has been recently diagnosed with shingles outbreak and not yet started on her filled medication of Acyclovir. There are mildly elevated initially troponin of 0.087 but patient denies any chest pain or palpitations or dizziness or headache or problems with breathing or nausea or abdominal pain. Review of her labs on previous admission showed some mildly elevated troponin as well. Denies fevers, diarrhea, or vomiting Admission Exam Per Admitting Provider Constitutional: cooperative and comfortable Eyes: PERRL, conjunctivae normal, anicteric sclerae EOM intact bilaterally ENMT: external ear and nose normal, oropharynx normal Neck: trachea midline, no thyromegaly normal visual inspection Respiratory: normal respiratory effort, lungs clear to auscultation Cardiovascular: regular rate and regular rhythm Gastrointestinal: normal bowel sounds, soft, nontender, no hepatosplenomegaly Skin: shingles distribution rash pattern from middle of abdomen to the left posterior back Neurologic: PERRL, EOMI, accommodation nl, no face palsy, no dysarthria moves all extremities Psychiatric: A+Ox3, euthymic affect Principal Diagnosis Recurrent falls: Shingles outbreak: Elevated troponin: Hypothyroidism: CKD (chronic kidney disease), stage III: Bradycardia Aortic stenosis CAD (coronary artery disease) S/P stent in the past Discharge Exam General- No acute distress Head- atraumatic Eyes- PERRL, EOMI, ENT- oropharynx clear Neck- supple, no JVD Lungs- clear to auscultation Heart- regular rhythm; +murmur Abdomen- normal bowel sounds, soft, nontender Extremities- no calf tenderness Neuro- alert, oriented x 3; PERRL, EOMI; no facial palsy; no dysarthria Skin- warm & dry, vesicles rash broke, rash started to crust in the middle of abdomen and left posterior back area Discharge Data Allergies Allergy/AdvReac Type Severity Reaction Status Date / Time clopidogrel Allergy Mild RASH Verified 04/26/20 22:15 Penicillins Allergy Mild RASH Verified 04/26/20 22:15 tetracycline Allergy Mild UNKNOWN Verified 04/26/20 22:15 ranitidine AdvReac Intermediate PALPITATION Verified 04/26/20 22:15 S lisinopril AdvReac Unknown DRY COUGH Verified 04/26/20 22:15 Consultations 04/26/20 20:34 ED Decision to Admit Stat 04/26/20 20:47 Consult Case Management - Discharge Planning Routine Ordered Studies 04/26/20 17:13 CT head/brain wo con Stat XR chest 1V portable CLINICAL HISTORY: weakness dyspnea COMPARISON STUDY: 05/31/2019 FINDINGS: The bones soft tissues and hemidiaphragms are normal. The cardiomediastinal silhouette is normal. The lungs are clear. The pulmonary vasculature is normal. IMPRESSION: Negative chest. ACT 112: Negative or not required by law. The above report was generated using voice recognition software. It may contain grammatical, syntax or spelling errors. Electronically signed by: Estrada Ames M.D. 04/26/2020 5:26 PM Dictated: 04/26/201725 Transcribed: 04/26/201725 CT head/brain wo con CT DOSE: 537.48 mGy.cm HISTORY: Trauma. Mental status change. falls TECHNIQUE: Multiaxial CT images of the head were performed without the use of intravenous contrast. A dose lowering technique was utilized adhering to the principles of ALARA. Comparison: 04/04/2020 Findings: Minimal sclerosis of components of the posterior mastoid air cells bilaterally. The remaining air cells are clear. Mild age-related atrophy and chronic small vessel change. Ventricular system is midline. There is no evidence for acute intracranial hemorrhage. The calvarium and skull base are intact. The ventricles and sulci are within normal limits. There is no mass, hematoma, midline shift, or acute infarct. Impression: 1. Age-related chronic small vessel and atrophy-like change. 2. No acute intracranial abnormality. 3. 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 ACT 112: Negative or not required by law. The above report was generated using voice recognition software. It may contain grammatical, syntax or spelling errors. Electronically signed by: Estrada Ames M.D. 04/26/2020 8:00 PM Dictated: 04/26/201957 Transcribed: 04/26/201957 Hospital Course (1) Recurrent falls: Present on admission with recurrent episodes of falls CT head showed no acute intracranial abnormality. B12 and folic acid normal PT/OT eval Fall precaution COVID 19 screening negative Plan to go to rehab today (2) Shingles outbreak: Continue Acyclovir 800 q5h to complete 7 days course On contact and airborne precaution Continue contact precaution until rash completely crusted (3) Elevated troponin: Possible related to elevate creatinine Troponin on admission 0.087, then 0.080 EKG showed no ischemic changed Continue Metoprolol 12.5 HS Asymptomatic (4) Hypothyroidism: continue [place] Thyroid which alternates between 30 mg and 60 mg daily doses (5) CKD (chronic kidney disease), stage III: Acute kidney injury Creatinine 1.58 on admission Received IV fluid Creatinine 1.2 Avoid nephrotoxic agents Continue Lasix 3xweekly Check BMP in 1 week Bradycardia Asymptomatic Tele monitor showed no pause or arrhythmia Since pt has history of paroxysmal atrial tachycardia, we will continue the low dose metoprolol If she becomes symptomatic, will consider to cut metoprolol to half or to hold it Since pt is discharging to [facility] for therapy and hx of paroxysmal Atrial tach, her HR might start to increase Continue monitor and adjust metoprolol if needs Aortic stenosis CAD (coronary artery disease) S/P stent in the past History of paroxysmal atrial tachycardia: History of Combined systolic and diastolic congestive heart failure congestive heart failure outpatient echo 03/24/2020: Moderate to severe aortic stenosis, EF: 47%, grade 1 diastolic dysfunction Continue Lasix 20mg 3xwk Stable DVT prophylaxis: SCDs Code Status: DNR/DNI Disposition Discharge to [facility] today COVID 19 negative Daughter Aaliyah (her cell phone is [phone], her work and emergency contact number is [phone]) Total Time Total Time Spent Total Time Spent (In Minutes): 35 minutes Total Time Includes: Examination of the Patient, Discharge Planning, Medication Reconciliation, Communication With Other Providers and Other Discharge Plan Discharge Items [facility] Disposition[facility] Reason For Visit: RECURRENT FALLS,SHINGLES RASH Discharge Diagnosis: Recurrent falls: Shingles outbreak: Elevated troponin: Hypothyroidism: CKD (chronic kidney disease), stage III: Bradycardia Aortic stenosis CAD (coronary artery disease) S/P stent in the past Activity: Resume your previous activity Non-emergency contact: Primary Care Provider Call non-emergency contact if: you have any medication questions Follow-up/Referrals: Rey Nation MD [Primary Care Provider] - Diet: Heart Healthy Addtl Attending Provider Instructions: Follow up with your primary care provider at [facility] Continue physical and occupational therapy Fall precaution Check BMP in 1 week to monitor your electrolytes and renal function Continue Acyclovir for 1 day Contact precaution until the rash has fully crusted Continue monitor your heart rate and adjust her metoprolol if she develops any symptomatic bradycardia Please hold next dose of tramadol if you develop and lethargy and drowsiness No driving or operate any machine while on tramadol Pending Studies at Discharge: No Stand-Alone Forms: My [facility] Skilled Items Patient informed of condition?: Yes DNR: No Discharge Level of Care: Skilled Communicable Disease: No Discharge Prognosis: Stable Lines: None Urinary Catheter: No Medications and DC Order Prescriptions: New acyclovir 200 mg Capsule 800 mg PO [id number] 1 Days Qty: 10 RF: 0 lidocaine 5 % Adhesive Patch,Medicated 1 patch transdermal QAM Qty: 5 RF: 0 tramadol 50 mg tablet 50 mg PO Q12H PRN (Reason: pain) Qty: 8 RF: 0 Continued loratadine 10 mg Tablet 10 mg PO DAILY PRN (Reason: ALLERGIES) RF: 0 magnesium oxide 400 mg magnesium Capsule 400 mg PO DAILY RF: 0 metoprolol succinate 25 mg Tablet Extended Release 24 Hr 12.5 mg PO HS Qty: 0 RF: 0 thyroid (pork) [[place] Thyroid] 60 mg Tablet 60 mg PO 3XWK RF: 0 omega-3 fatty acids [Fish Oil Concentrate] 1,000 mg Capsule 1,000 mg PO DAILY RF: 0 coenzyme Q10 100 mg Tablet 100 mg PO DAILY RF: 0 thyroid (pork) [[place] Thyroid] 30 mg tablet 30 mg PO 4XWK RF: 0 cholecalciferol (vitamin D3) 1,000 unit Capsule 1,000 unit PO DAILY RF: 0 ferrous sulfate [iron] 325 mg (65 mg iron) Tablet 325 mg PO DAILY RF: 0 furosemide [Lasix] 20 mg tablet 20 mg PO 3XWK RF: 0 acetaminophen [Tylenol Extra Strength] 500 mg Tablet 1,000 mg PO Q6H PRN (Reason: Pain) RF: 0 acyclovir 800 mg tablet 800 mg PO UD RF: 0 Discharge Orders: Discharge Order (Routine); Ordered 05/01/20 Ordered By: Rose Marie Watt/Other Patient Handouts: Shingles (Herpes Zoster) Admission Data Admit Date/Time: 04/26/20 21:12 Attending Provider: Rose Marie Richardson Admit Provider: Gilberto Crane Primary Care Provider: Rey Nation Other Providers: Gilberto Crane ; Tiera Fuentes Other Interventions: Discharge Summary Assessment (RN) Last Done: 05/01/20 10:40
== END 2020-05-01 15:55 | DRG 596 ==
LOC: ED 17:02 → SUATTDRO 21:12 → 2W 21:12